=== PATIENT | female | born 1935 | race Caucasian/White ===

== ENCOUNTER → 2021-09-26 10:39 | Outpatient (BNVA) | payer MEDICARE, SELFPAY | PROVIDERS: Family Provider Specialist; PCP Specialist; Visit Provider Nurse Practitioner | DX: I10 Essential (primary) hypertension (principal); E78.5 Hyperlipidemia, unspecified; E55.9 Vitamin D deficiency, unspecified; E78.2 Mixed hyperlipidemia; F32.A Depression, unspecified; R09.02 Hypoxemia; Z79.01 Long term (current) use of anticoagulants | CPT/HCPCS: 80053; 80061; 82306; 84443; 85025 ==

== ENCOUNTER 2023-03-08 21:39 | Observation (INO) | payer MEDICARE, SELFPAY ==
[2023-03-08 21:45] VITALS: BMI 24.7
[2023-03-08 22:17] VITALS: BP 144/77; PULSE 71; RESP 16; TEMP 36.8; O2SAT 93
--- NOTE | 2023-03-08 22:33 | XRR_ITS ---
PROCEDURE INFORMATION: Exam: XR Chest Exam date and time: 03/08/2023 11:02 PM Age: 87 years old Clinical indication: Other: Elevated crp; Additional info: Eleavted crp TECHNIQUE: Imaging protocol: Radiologic exam of the chest. Views: 1 view. COMPARISON: CR XR chest 1V [id number] 05/22/2019 11:13 AM FINDINGS: Lungs: Emphysematous changes. Bilateral hilar atelectasis versus minimal infiltrate. Pleural spaces: Unremarkable. No pleural effusion. No pneumothorax. Heart/Mediastinum: Large hiatal hernia. Bones/joints: Unremarkable. XR/XR chest 1V portable [id number] IMPRESSION: 1. Large hiatal hernia. 2. Emphysematous changes. 3. Bilateral hilar atelectasis versus minimal infiltrate.
--- NOTE | 2023-03-08 22:42 | P.HP_ITS ---
Providers/Chief Complaint Admitting Physician: Fabian Black DO Primary Care Provider: Rosario Jane MD Chief Complaint: Syncope History of Present Illness Maria Alejandra Zayas is a 87 year old female with a past medical history of lacunar), history of DVT on Xarelto, history of atrial septal aneurysm, who was brought to [facility] due to concerns for syncope and altered mental status, she has a history of dementia, hyperlipidemia, currently patient is alert to person, to place, not to time she can follow commands she does not know exactly what happened, she denies any facial droop, slurring words, focal weakness, no abdominal pain, fevers, chills, no cough, no neck pain, neck stiffness, no lightheadedness, no dizziness, no chest pain, no palpitations. A ccording to outside records, she was transferred to [facility] as she had 3-4 unresponsive episodes, first episode at home per her , last known well normal was at about 730, patient was eating at the table, she stopped talking, later had on the table, patient was not responding for about 20 minutes, then spontaneous stand up and started talking again, EMS on route reported she stopped speaking midsentence 3 different times, states that he is a bit more confused, states her last evaluation has been feeling tired, wanting to sleep, ER physician spoke to their virtual neurology team, who recommended transfer to stroke center for stroke evaluation Review of Systems Const: Denies: fever(s) or chills Eyes: Denies: change in vision ENMT: Denies: throat pain Card: Denies: chest pain Resp: Denies: dyspnea GI: Denies: abdominal pain, nausea or vomiting : Denies: flank pain or difficulty voiding Musc: Denies: neck pain or back pain Skin/Breast: Denies: rash Neuro: Denies: headache(s) Psych: Denies: anxiety or depression Endo: Denies: polyuria or polydipsia Medications/Allergies Home Medications Medication Instructions Recorded Confirmed Last Taken Type donepezil 10 mg tablet 10 mg PO DAILY 07/17/19 09/26/21 Unknown History folic acid 1 mg tablet ea PO 07/17/19 09/26/21 Unknown History citalopram 20 mg tablet See Rx Instructions .Route 09/26/21 09/26/21 Unknown Rx .COMPLEX #30 tabs lisinopril 5 mg tablet See Rx Instructions .Route 12/02/22 Unknown Rx .COMPLEX #30 tabs rivaroxaban 20 mg tablet (Xarelto) See Rx Instructions .Route 12/30/22 Unknown Rx .COMPLEX #30 tabs rosuvastatin 20 mg tablet See Rx Instructions .Route 12/30/22 Unknown Rx .COMPLEX #30 tabs Allergies Allergy/AdvReac Type Severity Reaction Status Date / Time Penicillins Allergy Mild rash Verified 09/26/21 09:58 PFSH Acute PFSH: Medical History Anticoagulated by anticoagulation treatment Dementia Essential hypertension History of CVA (cerebrovascular accident) History of DVT (deep vein thrombosis) History of pulmonary embolism History of TIA (transient ischemic attack) Hyperlipemia Hypoxia Vitamin D deficiency Surgical History History of appendectomy Family History (Updated 03/08/23 @ 22:44 by Qamar Gutierrez MD) Mother DVT (deep venous thrombosis) Polymyositis Social History Smoking and tobacco status: never smoked Second hand smoke exposure: No Smoking risk assessment/counseling performed?: No Alcohol intake: never Desire information about alcohol rehabilitation?: No Counseling given: No Substance/Drug Use: never Desire information about substance/drug rehabilitation?: No Counseling given: No Vitals/I&O/Wt Last Vital Signs Temp 98.3 F 03/08/23 22:17 Pulse 71 03/08/23 22:17 Resp 16 03/08/23 22:17 BP 144/77 03/08/23 22:17 Pulse Ox 93 03/08/23 22:17 03/08/23 03/08/23 03/08/23 06:59 14:59 22:59 Intake Total 120 / 120 Balance 120 / 120 Physical Exam Const: COMMON NORMALS: no acute distress and patient oriented x3 GENERAL APPEARANCE: cooperative and well developed HENMT: COMMON NORMALS: normocephalic and Normal external nose present HEAD & SCALP: normocephalic FACE & SINUS: normal facial exam NOSE: Normal external nose present Eye: COMMON NORMALS: Equal, round and reactive pupils present, EOMs intact bilaterally, conjunctivae normal and no scleral icterus CONJUNCTIVA: Yes conjunctivae normal PUPIL: Yes Equal, round and reactive pupils present Neck/C-Spine: COMMON NORMALS: full ROM, no lymphadenopathy, no JVD and Thyroid normal Lymph: LYMPHATIC: no lymphadenopathy noted Chest: COMMONS NORMALS: normal inspection of the chest Resp: COMMON NORMALS: normal respiratory effort, No retractions, No use of accessory muscles and clear to auscultation bilaterally AUSCULTATION: clear to auscultation bilaterally Cardio: COMMON NORMALS: regular rate, regular rhythm, S1 normal heart sound present, S2 normal heart sound present, No murmurs present (Cardio) and Peripheral pulses 2+ throughout RATE: regular rate RHYTHM: regular rhythm HEART SOUNDS: S1 normal heart sound present and S2 normal heart sound present PERIPHERAL PULSES: Peripheral pulses 2+ throughout GI: COMMON NORMALS: Normal to inspection, nondistended, normoactive bowel sounds present, Soft to palpation and non-tender : BLADDER/KIDNEY EXAM: Yes no CVA tenderness Back/Pelvis: COMMON NORMALS: no CVA tenderness Extremity: COMMON NORMALS: normal to inspection, full ROM, no calf tenderness and no pedal edema Neuro: COMMON NORMALS: patient oriented x3, CN's II-XII intact bilaterally, moves all extremities, no focal motor deficits and no sensory deficits noted Psych: COMMON NORMALS: mental status grossly normal, Normal thought process present, cooperative and speech normal APPEARANCE: Yes well kempt SPEECH: Yes normal speech THOUGHT PROCESS: Normal thought process present Skin: COMMON NORMALS: turgor normal and no jaundice GENERAL SKIN EXAM: turgor normal A&P Assessment and plan (1) CVA (cerebral vascular accident): (2) History of DVT (deep vein thrombosis): (3) Anticoagulated by anticoagulation treatment: (4) Hypoxia: (5) Essential hypertension: (6) Atrial septal aneurysm: Plan acute cva -History of atrial septal aneurysm, which increases her risk of embolic strokes ? History of lacunar infarcts ? Is on anticoagulation, Xarelto ? CT head from [facility] shows chronic small vessel ischemic changes, there is a small remote right cerebellar lacunar infarct ? 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 Currently for NIH stroke scale is 0, I cannot discern any facial asymmetry, no facial droop, no slurring of her words, she is alert to person, to place, to time, can follow commands, cranial nerves II to XII grossly intact, no focal weakness, no paresthesias Plan -Continue neurochecks, aspiration precautions, night stroke scale ? Speech therapy eval -Bedside swallow eval ? PT OT ? Continue aspirin, statin ? Telemetry monitoring, ? Cardiac echo ? MRI ? Allow for permissive hypertension to systolic greater than 220 or diastolic 1120 -We will continue Xarelto -Full code -Xarelto for DVT prophylaxis Unresponsive episodes -Lasting 15 to 20 minutes, 3 episodes -Etiology unclear -Serial troponins, serial EKGs, telemetry monitoring -Cardiac echo -Patient CRP was 130? We will repeat in a.m., repeat CBC, UA, chest x-ray -Arrhythmia versus syncope associated with atrial septal aneurysm hx of dvt hx of atrial septal aneurysm hx of htn Attestations Medical Necessity Statement*: patient requires hospitalization for cva, outpatient with observation Diagnoses CVA (cerebral vascular accident) I63.9 History of DVT (deep vein thrombosis) Z86.718 Anticoagulated by anticoagulation treatment Z79.01 Hypoxia R09.02 Essential hypertension I10 Atrial septal aneurysm I25.3
--- NOTE | 2023-03-08 23:02 | ECG_ITS ---
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 Measurements Intervals [place] Rate: 78 P: 68 NC: 130 QRS: 68 QRSD: 78 T: 82 QT: 363 QTc: 415 Interpretive Statements SINUS RHYTHM POSSIBLE LEFT ATRIAL ENLARGEMENT [-0.1mV P-WAVE IN V1/V2] NONSPECIFIC T-WAVE ABNORMALITY INTERPRETATION BASED ON A DEFAULT AGE OF 40 YEARS Compared to ECG 05/21/2019 05:32:03 Sinus arrhythmia no longer present T-wave abnormality still present Electronically Signed On 03-09-2023 21:09:04 CDT by Marguerite Oswald M.D. [email or web address]
[2023-03-08] MEDS: pantoprazole 40 mg SDV IVP (23:17)
[2023-03-08] MEDS: sodium chloride 0.9% 1,000 ML 75 ML IV (23:17)
[2023-03-08 23:23] VITALS: O2SAT 94
[2023-03-08 23:27] LABS: Estmated Average Glucose 105; Hemoglobin A1C 5.3 % (4.0-6.0)
[2023-03-08 23:41] LABS: Chol HDL Ratio 2.45 mg/dL (0.0-4.40); Cholesterol 93 mg/dL (0-200); HDL Cholesterol 38 mg/dL (60-100); LDL Cholesterol Calculated 35 mg/dL (50-129); LDL HDL Ratio 0.92 RATIO (0.00-3.22); Thyroid Stimulating Hormone 1.08 uIU/mL (0.27-4.20); Triglycerides 102 mg/dL (0-150)
[2023-03-08 23:53] LABS: Troponin(5th) Baseline 12 ng/L (0-10)
[2023-03-09] VITALS (8 sets, daily range): BP systolic 135–188; BP diastolic 60–81; PULSE 74–99; RESP 15–19; TEMP 36.5–37.2; O2SAT 91–94
[2023-03-09 01:48] LABS: Troponin 5 2HR 15.04 ng/L (0-10); Troponin 5 2HR Delta 3.04 ABS# (0-10)
[2023-03-09 05:48] LABS: Basophils % 0.3 %; Hematocrit 37.1 % (36-47); Lymphocytes # 0.3 10^3/uL (0.8-4.8); Mean Corpuscular Hemoglobin 29.3 pg (27-33); Mean Corpuscular Volume 94.6 fl (85-98); Mean Platelet Volume 11.2 fL (7.4-10.4); Monocytes # 0.3 10^3/uL (0.2-0.9); Monocytes % 8.4 %; Neutrophils % 83.7 %; Nucleated Red Blood Cells % 0 %; Platelet Count 145 10^3/cmm (157-399); Red Blood Count 3.92 10^6/uL (3.85-5.65); Red Cell Distribution Width 13.5 % (12.1-15.1); White Blood Count 3.58 10^3/uL (3.29-11.43)
[2023-03-09 06:07] LABS: Troponin 5 6HR 19.87 ng/L (0-10)
[2023-03-09 06:08] LABS: Troponin 5 6HR Delta 7.87 ng/L (0-12)
[2023-03-09 06:09] LABS: Alanine Aminotransferase 29 U/L (0-33); Albumin Level 3.1 g/dL (3.5-5.2); Alkaline Phosphatase 62 U/L (35-105); Anion Gap 15.4 (5-19); Aspartate Amino Transferase 36 U/L (0-32); Blood Urea Nitrogen 11 mg/dL (8-23); C Reactive Protein 132.4 mg/L (0.0-4.9); Calcium 8.6 mg/dL (8.5-10.5); Carbon Dioxide 22 mmol/L (22-29); Chloride 99 mmol/L (98-107); Globulin 2.8 g/dL (1.3-4.6); Glucose 104 mg/dL (65-115); Magnesium 1.9 mg/dL (1.7-2.3); Osmolality Calculated 276 mOsm/kg (285-295); Phosphorus 2.3 mg/dL (2.5-4.5); Potassium 3.4 mmol/L (3.5-5.1); Sodium 133 mmol/L (136-145); Total Bilirubin 0.7 mg/dL (0.15-1.2); Total Protein 5.9 g/dL (6.6-8.7)
[2023-03-09 06:15] LABS: Procalcitonin 0.31 ng/mL (0-0.5)
[2023-03-09] MEDS: donepezil 5 MG Tablet 10 MG PO (08:48)
[2023-03-09] MEDS: aspirin 81 mg EC Tablet PO (08:49)
[2023-03-09] MEDS: rivaroxaban 10 mg Tablet 20 MG PO (08:49)
[2023-03-09] MEDS: atorvastatin 40 mg Tablet 80 MG PO (08:49)
[2023-03-09] MEDS: citalopram 20 mg Tablet PO (08:50)
--- NOTE | 2023-03-09 09:53 | PC.CHAP ---
Pastoral Care Encounter/Spiritual Assessment Type of Contact [] Declined director of medical education visit [] Patient/Family/Request visit [] Outpatient visit [] Follow-up visit [] Physician referral [] Code/Alert [] Routine visit [] Staff referral [] Actively dying [] Patient sleeping [] Family support [] [] Out of room [] Palliative care [] [x] Receiving care in room [] Pre-surgical visit [] Trauma [] Long length of stay [] ICU visit [] Other: Relational/Emotional Strength [] Patient feels connected with others/family/visitors/staff [] Distress [] Loneliness/isolation [] Abandonment Spirituality of Patient [] Person of Jennifer [] Attends Yazidism of their Jennifer [] Believes in Prayer [] Reads Bible or Orthodox materials [] There are Spiritual issues to be addressed Tool Filer Hand Interventions [] Prayer [] Active listening [] Non-anxious presence [] Spiritual/emotional support [] Crisis/trauma care [] Spiritual counseling [] Bereavement support [] Provided bereavement packet [] Provided Bible/devotional materials [] Provided toy/stuffed animal, coloring book to patient or family member [] Provided Communion [] Anointing/[place] [] Salvation [] Completed spiritual assessment [] Other: Impact on Illness or Injury [] Angry [] Fearful [] Anxious [] Often cries [] Exhaustion [] Unable to work [] Unable to attend episcopal [] Unable to walk/stand [] Unable to read [] Unable to drive [] Unable to eat/drink [] Unable to sleep [] Unable to be with family [] Patient intubated [] Other: Summary Time spent with patient
--- NOTE | 2023-03-09 15:26 | P.PN_ITS ---
Subjective Subjective: Patient admitted for episodes of unresponsiveness. No true syncope when asked the patient and per ER report. Today patient states that she feels normal no complaints. Review of systems is negative. Vitals/I&O/Wt Last Vital Signs Temp 98.2 F 03/09/23 12:00 Pulse 82 03/09/23 13:30 Resp 16 03/09/23 12:00 BP 188/81 03/09/23 12:00 Pulse Ox 92 03/09/23 12:00 O2 Del Method Room Air 03/09/23 12:00 03/09/23 03/09/23 03/09/23 06:59 14:59 22:59 Intake Total 120 / 240 1480 / 1480 Balance 120 / 240 1480 / 1480 Weight last 48 hrs Weight 57.606 kg Physical Exam Narrative: Elderly female with good strength seen lying in bed. Neurologic: Patient has a right facial droop versus asymmetry. The droop resolves with smiling. NIHSS 0 cranial nerves II through XII are grossly intact Heart: Regular normal S1-S2 without murmurs clicks gallops or rubs Lungs: Clear to auscultation without wheezes rales or rhonchi Abdomen: Soft nontender nondistended positive bowel sounds Extremities no clubbing cyanosis or edema Data 03/09/23 05:30 03/09/23 05:30 A&P Assessment and plan (1) Recurrent episodes of unresponsiveness: Due to patient's history and suggestion of neurologist at [facility] patient was admitted to rule out stroke. Patient underwent MRI of head that shows no acute ischemia. The description of patient's episodic unresponsiveness yesterday is consistent with possible absence seizures. These can occur and multi-infarct dementia or Alzheimer's dementia. She does have temporal lobe and parietal cerebral atrophy. I discussed with patient if she would like to try an antiepileptic called Keppra which has minimal side effects the most common being weight gain. Patient said I do not know . also left the decision to me and I have elected to do a trial of Keppra 500 mg twice daily while she is in the hospital to see how she reacts. (2) History of CVA (cerebrovascular accident) without residual deficits: Patient has previous small scattered strokes in the bilateral cerebellum and the left basal ganglia She was on Crestor 20 mg daily this has been replaced with Lipitor 80 mg per formulary. (3) Abnormal MRI of head: Significant for cerebral atrophy in the temporal and parietal lobes. Also has small old ischemic strokes as described above (4) Vitamin D deficiency: Patient carries this diagnosis but does not report she takes vitamin D. Will defer to patient's nurse practitioner. (5) Hyperlipemia: Patient is reportedly on Crestor 20 mg daily Qualifiers: Hyperlipidemia type: mixed hyperlipidemia Qualified Code(s): E78.2 - Mixed hyperlipidemia (6) History of DVT (deep vein thrombosis): Patient has a longstanding history of DVT and is on rivaroxavan. I do not see an indication to continue. Therefore I will discontinue at this time (7) Essential hypertension: Patient takes lisinopril 5 mg at home. Her blood pressure has been stable until this afternoon. Will ensure resumption of this medication Plan Due to the patient's history of dementia and old prescription for Aricept will obtain a speech-language pathology evaluation for cognitive exam. Aricept has been resumed. Attestations Medical Necessity Statement*: Patient requires continued hospitalization for possible seizure activity and the initiation of a antiepileptic. Also requires a speech-language pathology to determine if outpatient assistance is required. Coding Level of Care Code Acute Code for Chg Fwd Diagnoses Recurrent episodes of unresponsiveness R40.4 History of CVA (cerebrovascular accident) without residual deficits Z86.73 Abnormal MRI of head R93.0 Vitamin D deficiency E55.9 Hyperlipemia E78.2 Hyperlipidemia type: mixed hyperlipidemia History of DVT (deep vein thrombosis) Z86.718 Essential hypertension I10
[2023-03-09] MEDS: levETIRAcetam 1,000 mg/10 mL UDC 500 MG PO (17:31)
--- NOTE | 2023-03-09 22:41 | USCV_ITS ---
Maria Alejandra Zayas Age: 87 Gender: F : 1935 Exam Date: 03/09/2023 02:16 Ordering Phys: Qamar Gutierrez MD Technologist: RADHA Exam Location: [facility] Indication: altered mental status. BP: 144 / 77 HR: 79 Rhythm: Sinus Technical Quality: Adequate MEASUREMENTS (Male / Female) Normal Values 2D ECHO LV Diastolic Diameter PLAX 2.4 cm 4.2 - 5.9 / 3.9 - 5.3 cm LV Systolic Diameter PLAX 1.7 cm IVS Diastolic Thickness 1.5 cm 0.6 - 1.0 / 0.6 - 0.9 cm IVS Systolic Thickness 1.5 cm LVPW Diastolic Thickness 1.2 cm 0.6 - 1.0 / 0.6 - 0.9 cm LVPW Systolic Thickness 1.2 cm LVOT Diameter 1.3 cm LV Ejection Fraction 2D Teich 58.3 % LV Ejection Fraction MOD 2C 78.9 % LV Ejection Fraction 2C AL 82.9 % LA Diameter 2.9 cm LA Width 3.5 cm LA Height 4.7 cm RA Width 3.1 cm RA Height 4.1 cm Aorta at Sinotubular Diameter 2.3 cm IVC Diameter 2.3 cm M-MODE Aortic Annulus Diameter 2.4 cm LA Ao Ratio MM 1.3 MV E Point Septal Separation 0.3 cm DOPPLER AV Peak Velocity 167.0 cm/s LVOT Peak Velocity 116.0 cm/s AV Area Cont Eq vti 1.0 cm squared AV Area Cont Eq pk 0.9 cm squared MV Peak Velocity 136.0 cm/s MV Area PHT 3.7 cm squared Mitral E to A Ratio 0.8 MV E' Velocity 46.0 cm/s Mitral E to MV E' Ratio 10.6 Mitral E to LV E' Lateral Ratio 8.9 Mitral E to LV E' Septal Ratio 13.4 TR Peak Velocity 305.7 cm/s TR Peak Gradient 37.4 mmHg TV Peak E Velocity 57.0 cm/s Right Atrial Pressure 5.0 mmHg Pulmonary Artery Systolic Pressu 42.4 mmHg PV Peak Velocity 127.0 cm/s RV Acceleration Time 0.1 s RV Ejection Time 0.3 s RV AcT/ET 0.4 FINDINGS Left Ventricle Normal left ventricular size and systolic function, EF 69 %. Mild to moderate concentric left ventricular hypertrophy.No regional wall motion abnormalities. Grade I/IV diastolic dysfunction (abnormal relaxation filling pattern), normal to mildly elevated filling pressures. Right Ventricle The right ventricle is normal in size and function. Right Atrium Mildly increased right atrial size. Left Atrium Mildly increased left atrial size. Mitral Valve Thickened mitral valve. Mild mitral valve regurgitation. Aortic Valve Thickened aortic valve. Tricuspid Valve Trace to mild tricuspid valve regurgitation. Estimated pulmonary artery peak systolic pressure 46 mmHg Pulmonic Valve Pulmonic valve not well visualized. Pericardium No pericardial effusion. Aorta Normal aortic annulus size. IVC Normal inferior vena cava. CONCLUSIONS Normal left ventricular size and systolic function, EF 69 %. Mild to moderate concentric left ventricular hypertrophy.No regional wall motion abnormalities. Grade I/IV diastolic dysfunction (abnormal relaxation filling pattern), normal to mildly elevated filling pressures. Mild biatrial enlargement Thickened mitral valve. Mild mitral valve regurgitation. Thickened aortic valve. Trace to mild tricuspid valve regurgitation. Estimated pulmonary artery peak systolic pressure 46 mmHg. There is no pericardial effusion. There are no intracardiac masses. Compared to the study from 05/21/2019, there may not be a significant change Dr Marguerite Oswald MD [facility] (Electronically Signed) Final Date: 09 March 2023 12:26 S
--- NOTE | 2023-03-09 23:02 | MR_ITS ---
WS: [id number] MRI HEAD WITHOUT CONTRAST TECHNIQUE: Sagittal T1, T2 axial, T2 axial FLAIR, axial and coronal T1 images, axial susceptibility w eighted imaging, axial diffusion weighted images, and coronal T2 images were obtained. CLINICAL INFORMATION: cva COMPARISON: MRI 2012 FINDINGS: No evidence of restricted diffusion to suggest acute ischemia. Ventricular system and basilar cistern s are patent. Multiple tiny chronic lacunar infarcts in the cerebellum bilaterally RIGHT greater than LEFT. Normal vascular flow voids at the skull base. No extra-axial fluid collections. No evidence of mass or mass effect. Chronic lacunar infarct LEFT caudate. Paranasal sinuses are well aerated. Marcy l posterior nasopharynx and parapharyngeal fat. Advanced small vessel changes progressed since 2012. Small vessel changes in the ellyn. Moderate paren chymal volume loss worse in the temporal and parietal lobes. Moderate symmetric atrophy temporal lobe s and hippocampal formations. Normal optic chiasm and pituitary infundibulum. Tiny punctate focus of hemosiderin in the LEFT greater than RIGHT cerebellum. Single punctate focus i n the RIGHT frontal parietal junction. IMPRESSION: 1. No evidence of restricted diffusion to suggest acute ischemia. 2. Advanced small vessel changes with moderate parenchymal volume loss worse in the temporal and par ietal lobes. 3. Small vessel changes in the ellyn. 4. Multiple chronic lacunar infarcts in the cerebellum bilaterally and LEFT caudate. 5. A few tiny punctate foci of hemosiderin within the cerebellum and RIGHT frontal parietal junction .
[2023-03-10] VITALS (7 sets, daily range): BP systolic 140–183; BP diastolic 75–90; PULSE 82–94; RESP 16–19; TEMP 36.4–37.3; O2SAT 91–94
[2023-03-10] MEDS: aspirin 81 mg EC Tablet PO (09:25)
[2023-03-10] MEDS: citalopram 20 mg Tablet PO (09:25)
[2023-03-10] MEDS: levETIRAcetam 1,000 mg/10 mL UDC 500 MG PO (09:26)
--- NOTE | 2023-03-10 11:09 | PC.CHAP ---
Pastoral Care Encounter/Spiritual Assessment Type of Contact [] Declined land commissioner visit [] Patient/Family/Request visit [] Outpatient visit [] Follow-up visit [] Physician referral [] Code/Alert [x] Routine visit [] Staff referral [] Actively dying [] Patient sleeping [] Family support [] [] Out of room [] Palliative care [] [] Receiving care in room [] Pre-surgical visit [] Trauma [] Long length of stay [] ICU visit [] Other: Relational/Emotional Strength [] Patient feels connected with others/family/visitors/staff [] Distress [] Loneliness/isolation [] Abandonment Spirituality of Patient [] Person of Jennifer [] Attends Episcopal of their Jennifer [] Believes in Prayer [] Reads Bible or Mandaeism materials [] There are Spiritual issues to be addressed Impress Associate Interventions [x] Prayer [] Active listening [] Non-anxious presence [] Spiritual/emotional support [] Crisis/trauma care [] Spiritual counseling [] Bereavement support [] Provided bereavement packet [] Provided Bible/devotional materials [] Provided toy/stuffed animal, coloring book to patient or family member [] Provided Communion [] Anointing/[place] [] Salvation [] Completed spiritual assessment [] Other: Impact on Illness or Injury [] Angry [x] Fearful [] Anxious [] Often cries [] Exhaustion [] Unable to work [] Unable to attend mandaen [] Unable to walk/stand [] Unable to read [] Unable to drive [] Unable to eat/drink [] Unable to sleep [] Unable to be with family [] Patient intubated [] Other: Summary Time spent with patient 10 min
--- NOTE | 2023-03-10 11:14 | PM.DCS ---
Discharge Providers Date of Admission: 03/08/23 21:39 Date of Discharge: March 10, 2023 Attending Provider at Admission: Fabian Black DO Attending Provider at Discharge: Fabian Black DO Consults: None Primary Care Provider: Nazanin Etienne NP Diagnoses at Discharge Discharge Diagnosis (1) Recurrent episodes of unresponsiveness: Details from hospital stay: [place] to be possible seizure. Placed on Keppra 500 mg p.o. twice daily Status: Acute (2) History of CVA (cerebrovascular accident) without residual deficits: Status: Acute (3) Abnormal MRI of head: Status: Acute (4) Vitamin D deficiency: Status: Acute (5) Hyperlipemia: Status: Acute Qualifiers: Hyperlipidemia type: mixed hyperlipidemia Qualified Code(s): E78.2 - Mixed hyperlipidemia (6) History of DVT (deep vein thrombosis): Status: Resolved (7) Essential hypertension: Status: Chronic Reason for Visit Reason for Visit: Syncope Brief History: Patient admitted for episodes of unresponsiveness.? No true syncope when asked the patient and per ER report. Hospital Course Hospital Course Patient was transferred from [facility] with concern for CVA. MRI of the head shows no acute ischemia. However the MRI of the head did reveal moderate cerebral atrophy in the temporal and parietal lobes. She also has multiple small old ischemic strokes. Patient's NIHSS was 0. Discussion with patient and via phone it was read upon for a trial of Keppra 500 mg twice daily while in the hospital. She has not had no side thus far. She is agreeable to continue this medication since the cerebral atrophy may be a nidus for absence seizures. She has been informed that a major side effect is weight gain. He is advised to discuss with primary care if this becomes a problem. So it is recommended the patient resume Aricept. Patient will also be placed on a statin due to history of strokes. Physical Exam Narrative: Elderly female with good strength seen lying in bed. Neurologic: Patient has a right facial droop versus asymmetry. The droop resolves with smiling. NIHSS 0 cranial nerves II through XII are grossly intact Heart: Regular normal S1-S2 without murmurs clicks gallops or rubs Lungs: Clear to auscultation without wheezes rales or rhonchi Abdomen: Soft nontender nondistended positive bowel sounds Extremities no clubbing cyanosis or edema Discharge Data Studies Completed and Pending Completed Studies During Hospitalization Category Date Time Status XR chest 1V portable [id number] Stat Exams 03/08/23 22:33 Completed MR head wo con* [id number] Routine MRI 03/09/23 23:02 Completed CV. echo complete* [id number] Routine Ultrasound 03/09/23 22:41 Completed Pending at discharge Category Date Time Status Urinalysis Routine Lab 03/08/23 22:41 Uncollected Radiology Impressions Chest X-Ray 03/08/23 22:33 IMPRESSION: 1. Large hiatal hernia. 2. Emphysematous changes. 3. Bilateral hilar atelectasis versus minimal infiltrate. Laboratory Results WBC 3.58 10^3/uL (3.29-11.43) 03/09/23 05:30 RBC 3.92 10^6/uL (3.85-5.65) 03/09/23 05:30 Hgb 11.50 g/dL (11.27-16.99) 03/09/23 05:30 Hct 37.1 % (36-47) 03/09/23 05:30 MCV 94.6 fl (85-98) 03/09/23 05:30 MCH 29.3 pg (27-33) 03/09/23 05:30 MCHC 31.0 g/dL (30-55) 03/09/23 05:30 RDW 13.5 % (12.1-15.1) 03/09/23 05:30 Plt Count 145 10^3/cmm (157-399) L 03/09/23 05:30 MPV 11.2 fL (7.4-10.4) H 03/09/23 05:30 Neut % (Auto) 83.7 % 03/09/23 05:30 Lymph % (Auto) 7.0 % 03/09/23 05:30 [place] % (Auto) 8.4 % 03/09/23 05:30 Eos % (Auto) 0.0 % 03/09/23 05:30 Baso % (Auto) 0.3 % 03/09/23 05:30 Neut # (Auto) 3.00 10^3/uL (1.8-7.7) 03/09/23 05:30 Lymph # (Auto) 0.3 10^3/uL (0.8-4.8) L 03/09/23 05:30 [place] # (Auto) 0.3 10^3/uL (0.2-0.9) 03/09/23 05:30 Eos # (Auto) 0.0 10^3/uL (0.0-0.8) 03/09/23 05:30 Baso # (Auto) 0.0 10^3/uL (0.0-0.1) 03/09/23 05:30 Nucleated RBC % (auto) 0 % 03/09/23 05:30 Nucleated RBCs # 0.0 /100WBC 03/09/23 05:30 Sodium 133 mmol/L (136-145) L 03/09/23 05:30 Potassium 3.4 mmol/L (3.5-5.1) L 03/09/23 05:30 Chloride 99 mmol/L (98-107) 03/09/23 05:30 Carbon Dioxide 22 mmol/L (22-29) 03/09/23 05:30 Anion Gap 15.4 (5-19) 03/09/23 05:30 BUN 11 mg/dL (8-23) 03/09/23 05:30 Creatinine 0.7 mg/dL (0.5-0.9) 03/09/23 05:30 GFR Calculation Not Reportable 03/09/23 05:30 Glucose 104 mg/dL (65-115) 03/09/23 05:30 Estimat Average Glucose 105 03/08/23 23:01 Hemoglobin A1c 5.3 % (4.0-6.0) 03/08/23 23:01 Calculated Osmolality 276 mOsm/kg (285-295) L 03/09/23 05:30 Calcium 8.6 mg/dL (8.5-10.5) 03/09/23 05:30 Phosphorus 2.3 mg/dL (2.5-4.5) L 03/09/23 05:30 Magnesium 1.9 mg/dL (1.7-2.3) 03/09/23 05:30 Total Bilirubin 0.7 mg/dL (0.15-1.2) 03/09/23 05:30 AST 36 U/L (0-32) H 03/09/23 05:30 ALT 29 U/L (0-33) 03/09/23 05:30 Alkaline Phosphatase 62 U/L (35-105) 03/09/23 05:30 Troponin T Baseline 12 ng/L (0-10) H 03/08/23 23:01 Troponin T 120 Minute 15.04 ng/L (0-10) H 03/09/23 01:10 Delta Troponin T 3.04 ABS# (0-10) 03/09/23 01:10 Troponin T Hi Sens 6Hr 19.87 ng/L (0-10) H 03/09/23 05:30 Troponin T Hi Sens 6Hr Delta 7.87 ng/L (0-12) 03/09/23 05:30 C-Reactive Protein 132.4 mg/L (0.0-4.9) H 03/09/23 05:30 Total Protein 5.9 g/dL (6.6-8.7) L 03/09/23 05:30 Albumin 3.1 g/dL (3.5-5.2) L 03/09/23 05:30 Globulin 2.8 g/dL (1.3-4.6) 03/09/23 05:30 Triglycerides 102 mg/dL (0-150) 03/08/23 23:01 Cholesterol 93 mg/dL (0-200) 03/08/23 23:01 LDL Cholesterol, Calc 35 mg/dL (50-129) L 03/08/23 23:01 HDL Cholesterol 38 mg/dL (60-100) L 03/08/23 23:01 LDL/HDL Ratio 0.92 RATIO (0.00-3.22) 03/08/23 23:01 Cholesterol/HDL Ratio 2.45 mg/dL (0.0-4.40) 03/08/23 23:01 Procalcitonin 0.31 ng/mL (0-0.5) 03/09/23 05:30 TSH 1.08 uIU/mL (0.27-4.20) 03/08/23 23:01 Vitals Last Vital Signs Temp 99.1 F 03/10/23 07:09 Pulse 94 03/10/23 07:09 Resp 19 H 03/10/23 07:09 BP 183/85 03/10/23 07:09 Pulse Ox 92 03/10/23 07:09 O2 Del Method Room Air 03/10/23 07:09 Discharge Plan Discharge Patient Disposition: Home Health Service Condition: Stable Prescriptions: New donepezil 5 mg Tablet 10 mg PO BEDTIME Qty: 30 0RF aspirin 81 mg Tablet,Delayed Release (Dr/Ec) 81 mg PO DAILY Qty: 30 0RF citalopram 20 mg Tablet 20 mg PO DAILY Qty: 30 0RF levetiracetam 100 mg/mL Solution 500 mg PO BID Qty: 60 0RF Continued lisinopril 5 mg tablet See Rx Instructions .ROUTE .COMPLEX Qty: 30 5RF Dose Instruction: TAKE ONE TABLET BY MOUTH DAILY Rx Instructions: TAKE ONE TABLET BY MOUTH DAILY rosuvastatin 20 mg tablet See Rx Instructions .ROUTE .COMPLEX Qty: 30 3RF Dose Instruction: TAKE 1 TABLET BY MOUTH EVERY DAY Rx Instructions: TAKE 1 TABLET BY MOUTH EVERY DAY Discontinued Xarelto 20 mg tablet See Rx Instructions .ROUTE .COMPLEX Qty: 30 3RF Dose Instruction: TAKE ONE TABLET BY MOUTH EVERY DAY, MUST MAKE APPOINTMENT BEFORE ADDITIONAL REFILLS ARE GIVEN Rx Instructions: TAKE ONE TABLET BY MOUTH EVERY DAY. Discharge Orders: Discharge Order (Routine); Ordered 03/10/23 Ordered By: Fabian Black Referrals: [facility] [Other] Nazanin Etienne FNP [Nurse Practitioner] - 03/18/23 10:00 am Discharge Diet: Usual diet Discharge Activity: Increase activity as tolerated Plan of Treatment: You have been started on an antiseizure medication for the possibility that your unresponsive episodes were due to a type of seizure. You have been started on Keppra 500 mg twice a day. Pharmacy will provide you an extensive list of side effects, however, most noted common side effect is a weight gain. If this becomes troublesome please contact your primary care provider Discharge Attestations Time Spent in Discharge Care*: less than 30 min Quality Metrics Clinical Quality Measures [ No reported AMI, CVA or VTE this stay] Coding Level of Care Code Acute Code for Chg Fwd Diagnoses Recurrent episodes of unresponsiveness R40.4 History of CVA (cerebrovascular accident) without residual deficits Z86.73 Abnormal MRI of head R93.0 Vitamin D deficiency E55.9 Hyperlipemia E78.2 Hyperlipidemia type: mixed hyperlipidemia History of DVT (deep vein thrombosis) Z86.718 Essential hypertension I10
== END 2023-03-10 12:25 | disposition home health service (06) ==
PROVIDERS: Family Medicine; Admitting Provider Internal Medicine; PCP Specialist; Visit Provider Internal Medicine
DX: R40.4 Transient alteration of awareness (principal); Z86.73 Personal history of transient ischemic attack (TIA), and cerebral infarction without residual deficits; R93.0 Abnormal findings on diagnostic imaging of skull and head, not elsewhere classified; E55.9 Vitamin D deficiency, unspecified; E78.2 Mixed hyperlipidemia; Z86.718 Personal history of other venous thrombosis and embolism; I10 Essential (primary) hypertension; K44.9 Diaphragmatic hernia without obstruction or gangrene; I34.0 Nonrheumatic mitral (valve) insufficiency; I35.8 Other nonrheumatic aortic valve disorders; Z79.01 Long term (current) use of anticoagulants; R09.02 Hypoxemia; I25.3 Aneurysm of heart
CPT/HCPCS: 36415; 70551; 71045; 80053; 80061; 83036; 83735; 84100; 84145; 84443; 84484; 85025; 86140; 92523; 92610; 93005; 93306; 94664; 97161; 97165; C9113; G0378; G0379; J7030

== ENCOUNTER 2023-03-11 18:17 | Emergency (ER) | payer MEDICARE, SELFPAY ==
[2023-03-11] VITALS (8 sets, daily range): BP systolic 125–152; BP diastolic 70–88; PULSE 82–94; RESP 20; TEMP 36.8; O2SAT 87–99
--- NOTE | 2023-03-11 18:42 | XRR_ITS ---
PROCEDURE INFORMATION: Exam: XR Chest Exam date and time: 03/11/2023 6:55 PM Age: 87 years old Clinical indication: Other: Lethargic TECHNIQUE: Imaging protocol: Radiologic exam of the chest. Views: 1 view. COMPARISON: CR (CHEST, ) 03/08/2023 11:02 PM FINDINGS: Lungs: No focal consolidation. Pleural spaces: Unremarkable. No pleural effusion. No pneumothorax. Heart/Mediastinum: Large hiatal hernia redemonstrated. Bones/joints: Old healed fracture deformity of the proximal left humerus. XR/XR chest 1V portable [id number] IMPRESSION: 1. No focal consolidation. 2. Large hiatal hernia redemonstrated.
--- NOTE | 2023-03-11 18:42 | CTR_ITS ---
PROCEDURE INFORMATION: Exam: CT Head Without Contrast Exam date and time: 03/11/2023 7:04 PM Age: 87 years old Clinical indication: Other: AMS; Additional info: Altered mental status TECHNIQUE: Imaging protocol: Computed tomography of the head without contrast. Radiation optimization: All CT scans at this facility use at least one of these dose optimization techniques: automated exposure control; mA and/or kV adjustment per patient size (includes targeted exams where dose is matched to clinical indication); or iterative reconstruction. REPORTING DATA: Count of CT and Cardiac NM exams in prior 12 months: This patient has received 2 known CTs and 0 known cardiac nuclear medicine studies in the 12 months prior to the current study. COMPARISON: MR head wo con* [id number] 03/09/2023 10:44 AM RADIATION DOSE METRICS: Total DLP (mGy-cm): 1090 FINDINGS: Brain: Subcortical and periventricular white matter changes consistent with small-vessel ischemic disease in the appropriate clinical setting. Small-vessel ischemic disease. No acute intracranial abnormality. Cerebral ventricles: No ventriculomegaly. Paranasal sinuses: Mild mucosal thickening in the right maxillary sinus. Mastoid air cells: Visualized mastoid air cells are well aerated. Bones/joints: Unremarkable. No acute fracture. Soft tissues: Unremarkable. CT/CT head wo con* [id number] IMPRESSION: 1. No acute intracranial abnormality. 2. Small-vessel ischemic disease.
[2023-03-11 19:00] LABS: Basophils # 0.1 10^3/uL (0.0-0.1); Basophils % 0.7 %; Lymphocytes # 0.3 10^3/uL (0.8-4.8); Lymphocytes % 3.8 %; Mean Corpuscular HGB Conc 33.9 g/dL (30-55); Mean Corpuscular Hemoglobin 29.3 pg (27-33); Mean Corpuscular Volume 86.4 fl (85-98); Mean Platelet Volume 10.9 fL (7.4-10.4); Monocytes # 0.3 10^3/uL (0.2-0.9); Monocytes % 3.7 %; Neutrophils # 6.39 10^3/uL (1.8-7.7); Neutrophils % 90.1 %; Nucleated Red Blood Cells % 0 %; Platelet Count 225 10^3/cmm (157-399); Red Cell Distribution Width 13.5 % (12.1-15.1); White Blood Count 7.09 10^3/uL (3.29-11.43)
--- NOTE | 2023-03-11 19:00 | PC.NURSE ---
ASSUMED CARE OF PATIENT FROM GALLO ALANIS AT 1900.
[2023-03-11 19:14] LABS: Alanine Aminotransferase 58 U/L (0-33); Albumin Level 3.2 g/dL (3.5-5.2); Alkaline Phosphatase 82 U/L (35-105); Anion Gap 14.3 (5-19); Aspartate Amino Transferase 81 U/L (0-32); Blood Urea Nitrogen 14 mg/dL (8-23); Calcium 8.9 mg/dL (8.5-10.5); Carbon Dioxide 28 mmol/L (22-29); Chloride 93 mmol/L (98-107); Creatinine Clr Calc Pharmacy 38.3804; Globulin 3.2 g/dL (1.3-4.6); Glucose 124 mg/dL (65-115); Osmolality Calculated 276 mOsm/kg (285-295); Potassium 3.3 mmol/L (3.5-5.1); Sodium 132 mmol/L (136-145); Total Bilirubin 0.8 mg/dL (0.15-1.2); Total Protein 6.4 g/dL (6.6-8.7)
[2023-03-11] MEDS: sodium chloride 0.9% 500 ML IV (19:27)
[2023-03-11 19:44] LABS: Bilirubin Urine 1+ (Negative); Blood Urine 2+ (Negative); Glucose Urine UA Norm (Normal); Ketones Urine 1+ (Negative); Nitrate Urine Negative (Negative); Protein Urine 2+ (Negative); Urine Appearance Clear (CLEAR); Urine Color Amber (Yellow); pH Urine 5 (5-7)
[2023-03-11 19:45] LABS: Add Urine Microscopic? YES; Leukocyte Esterase Urine Negative (Negative); Urobilinogen Urine 4 mg/dL (Negative)
[2023-03-11 19:50] LABS: Add Urine Culture? No; Amorphous Sediment Urine 1+ /hpf; Bacteria Urine TRACE /hpf; Fine Granular Casts Urine 0-4 /lpf; Mucus Urine 1+ /hpf; Oval Fat Bodies Urine 1+ /hpf; RBC Urine 0-4 /hpf (0-2); Squamous Epithelial Cell Urine 0-4 /hpf (0-5); WBC Urine 0-4 /hpf (0-5)
--- NOTE | 2023-03-11 20:20 | PC.NURSE ---
PATIENT CALLED AND WAS NOTIFIED OF PATIENT BEING DISCHARGED FROM THE ER. PATIENT STATES SHE IS BEING SENT HOME TONIGHT? I LIVE WAY OFF. I DON'T KNOW IF I CAN COME AND GET HER. PATIENT WAS EDUCATED THAT SOMEONE NEEDS TO PICK HER UP TONIGHT. STATES HE WOULD TRY AND FIND PATIENT A RIDE.
--- NOTE | 2023-03-11 21:03 | ED_ITS ---
HPI - General Adult General: Chief complaint: General Medical Stated complaint: weakness Time Seen by Provider: 03/11/23 18:24 History of Present Illness: This patient is an 87-year-old white female who presents to the emergency department for evaluation of an episode of weakness and possibly unresponsive episode. Patient's called paramedics to pick her up. And just laid down on the floor and would not get up. When I questioned the patient she is not sure why she is here. She states she is feeling fine. She is not having any chest pain, shortness of breath or headache. She does have history of prior CVA, hypertension, DVT, PE and hypercholesterolemia. Patient was just discharged from the hospital yesterday for evaluation of these unresponsive episodes. Neurologist thought they were possibly secondary to seizures. She was placed on Keppra. Review of Systems General: Reports: 10 or more systems reviewed and unremarkable except in HPI and below PFSH ED PFSH: Medical History Anticoagulated by anticoagulation treatment Dementia Essential hypertension History of CVA (cerebrovascular accident) History of DVT (deep vein thrombosis) History of pulmonary embolism History of TIA (transient ischemic attack) Hyperlipemia Hypoxia Vitamin D deficiency Surgical History History of appendectomy Family History (Updated 03/08/23 @ 22:44 by Qaamr Gutierrez MD) Mother DVT (deep venous thrombosis) Polymyositis Social History Smoking and tobacco status: never smoked Second hand smoke exposure: No Smoking risk assessment/counseling performed?: No Alcohol intake: never Desire information about alcohol rehabilitation?: No Counseling given: No Substance/Drug Use: never Desire information about substance/drug rehabilitation?: No Counseling given: No Physical Exam Const: COMMON NORMALS: no acute distress, patient oriented x3 and no limitations GENERAL APPEARANCE: cooperative and comfortable HENMT: COMMON NORMALS: normocephalic, atraumatic, Normal nasal mucous membranes and turbinates present, moist oral mucous membranes and oropharynx normal HEAD & SCALP: normal to inspection, normocephalic and atraumatic FACE & SINUS: normal facial exam NOSE: Normal nasal mucous membranes and turbinates present Eye: COMMON NORMALS: Equal, round and reactive pupils present, EOMs intact bilaterally and conjunctivae normal GENERAL EYE: appearance normal, both eyes and all related structures CONJUNCTIVA: Yes conjunctivae normal PUPIL: Yes Equal, round and reactive pupils present Neck/C-Spine: COMMON NORMALS: supple and no JVD Chest: COMMONS NORMALS: normal inspection of the chest Resp: COMMON NORMALS: normal respiratory effort and clear to auscultation bilaterally AUSCULTATION: clear to auscultation bilaterally Cardio: COMMON NORMALS: no JVD, regular rate, regular rhythm, No gallops present (Cardio), No murmurs present (Cardio) and No rub (Cardio) RATE: regular rate RHYTHM: regular rhythm GI: COMMON NORMALS: Normal to inspection, nondistended, normoactive bowel sounds present, Soft to palpation and non-tender AUSCULTATION: Yes normoactive bowel sounds PALPATION: Yes Soft to palpation : COMMON NORMALS: Yes no CVA tenderness BLADDER/KIDNEY EXAM: Yes no CVA tenderness Back/Pelvis: COMMON NORMALS: no CVA tenderness and thoracic and lumbar spine normal to inspection Extremity: COMMON NORMALS: normal to inspection Neuro: COMMON NORMALS: patient oriented x3 and CN's II-XII intact bilaterally Psych: COMMON NORMALS: mental status grossly normal, Normal thought process present and cooperative THOUGHT PROCESS: Normal thought process present Skin: COMMON NORMALS: no rashes or lesions noted, turgor normal and no jaundice GENERAL SKIN EXAM: no rashes or lesions noted and turgor normal Course Vital Signs: Vital signs: Vital Signs Temperature 98.2 F 03/11/23 18:20 Pulse Rate 82 03/11/23 20:30 Respiratory Rate 20 H 03/11/23 18:20 Blood Pressure 139/71 03/11/23 20:30 Pulse Oximetry 99 03/11/23 20:30 Oxygen Delivery Me thod Nasal Cannula 03/11/23 20:30 Oxygen Flow Rate 4 03/11/23 20:[address] [facility] - General Adult Medical Decision Making CBC was normal. CMP revealed a potassium of 3.3. Blood sugar 124. AST 81. ALT 58. Urinalysis was normal. Chest x-ray normal. Head CT was read by the radiologist as normal. Not sure was causing her spells. She has already been evaluated by the neurologist for this and just discharged yesterday. I have no other recommendations. Patient was discharged in stable condition instructed to follow-up with her primary care physician and/or neurology. Lab Data 03/11/23 18:50 03/11/23 18:50 Radiology Impressions Chest X-Ray 03/11/23 18:42 IMPRESSION: 1. No focal consolidation. 2. Large hiatal hernia redemonstrated. Head CT 03/11/23 18:42 IMPRESSION: 1. No acute intracranial abnormality. 2. Small-vessel ischemic disease. Laboratory Results WBC 7.09 10^3/uL (3.29-11.43) 03/11/23 18:50 RBC 4.40 10^6/uL (3.85-5.65) 03/11/23 18:50 Hgb 12.90 g/dL (11.27-16.99) 03/11/23 18:50 Hct 38.0 % (36-47) 03/11/23 18:50 MCV 86.4 fl (85-98) 03/11/23 18:50 MCH 29.3 pg (27-33) 03/11/23 18:50 MCHC 33.9 g/dL (30-55) 03/11/23 18:50 RDW 13.5 % (12.1-15.1) 03/11/23 18:50 Plt Count 225 10^3/cmm (157-399) 03/11/23 18:50 MPV 10.9 fL (7.4-10.4) H 03/11/23 18:50 Neut % (Auto) 90.1 % 03/11/23 18:50 Lymph % (Auto) 3.8 % 03/11/23 18:50 [place] % (Auto) 3.7 % 03/11/23 18:50 Eos % (Auto) 0.0 % 03/11/23 18:50 Baso % (Auto) 0.7 % 03/11/23 18:50 Neut # (Auto) 6.39 10^3/uL (1.8-7.7) 03/11/23 18:50 Lymph # (Auto) 0.3 10^3/uL (0.8-4.8) L 03/11/23 18:50 [place] # (Auto) 0.3 10^3/uL (0.2-0.9) 03/11/23 18:50 Eos # (Auto) 0.0 10^3/uL (0.0-0.8) 03/11/23 18:50 Baso # (Auto) 0.1 10^3/uL (0.0-0.1) 03/11/23 18:50 Nucleated RBC % (auto) 0 % 03/11/23 18:50 Nucleated RBCs # 0.0 /100WBC 03/11/23 18:50 Sodium 132 mmol/L (136-145) L 03/11/23 18:50 Potassium 3.3 mmol/L (3.5-5.1) L 03/11/23 18:50 Chloride 93 mmol/L (98-107) L 03/11/23 18:50 Carbon Dioxide 28 mmol/L (22-29) 03/11/23 18:50 Anion Gap 14.3 (5-19) 03/11/23 18:50 BUN 14 mg/dL (8-23) 03/11/23 18:50 Creatinine 0.8 mg/dL (0.5-0.9) 03/11/23 18:50 GFR Calculation Not Reportable 03/11/23 18:50 Glucose 124 mg/dL (65-115) H 03/11/23 18:50 Calculated Osmolality 276 mOsm/kg (285-295) L 03/11/23 18:50 Calcium 8.9 mg/dL (8.5-10.5) 03/11/23 18:50 Total Bilirubin 0.8 mg/dL (0.15-1.2) 03/11/23 18:50 AST 81 U/L (0-32) H 03/11/23 18:50 ALT 58 U/L (0-33) H 03/11/23 18:50 Alkaline Phosphatase 82 U/L (35-105) 03/11/23 18:50 Total Protein 6.4 g/dL (6.6-8.7) L 03/11/23 18:50 Albumin 3.2 g/dL (3.5-5.2) L 03/11/23 18:50 Globulin 3.2 g/dL (1.3-4.6) 03/11/23 18:50 Urine Color [place] (Yellow) 03/11/23 19:33 Urine Appearance Clear (CLEAR) 03/11/23 19:33 Urine pH 5 (5-7) 03/11/23 19:33 Ur Specific [place] 1.030 (1.005-1.030) 03/11/23 19:33 Urine Protein 2+ (Negative) H 03/11/23 19:33 Urine Glucose (UA) Norm (Normal) 03/11/23 19:33 Urine Ketones 1+ (Negative) H 03/11/23 19:33 Urine Blood 2+ (Negative) H 03/11/23 19:33 Urine Nitrate Negative (Negative) 03/11/23 19:33 Urine Bilirubin 1+ (Negative) H 03/11/23 19:33 Urine Urobilinogen 4 mg/dL (Negative) H 03/11/23 19:33 Ur Leukocyte Esterase Negative (Negative) 03/11/23 19:33 Urine RBC 0-4 /hpf (0-2) H 03/11/23 19:33 Urine WBC 0-4 /hpf (0-5) H 03/11/23 19:33 Ur Squamous Epith Cells 0-4 /hpf (0-5) H 03/11/23 19:33 Amorphous Sediment 1+ /hpf 03/11/23 19:33 Urine Bacteria Trace /hpf (NONE) 03/11/23 19:33 Fine Granular Casts 0-4 /lpf H 03/11/23 19:33 Urine Mucus 1+ /hpf 03/11/23 19:33 Ur Oval Fat Bodies 1+ /hpf 03/11/23 19:33 All radiology interpretation(s) finalized by discharge Discharge Plan Discharge Patient Disposition: Home Clinical Impression: Acute on chronic alteration in mental status Condition: Stable Prescriptions: No Action lisinopril 5 mg tablet See Rx Instructions .ROUTE .COMPLEX Qty: 30 5RF Dose Instruction: TAKE ONE TABLET BY MOUTH DAILY Rx Instructions: TAKE ONE TABLET BY MOUTH DAILY rosuvastatin 20 mg tablet See Rx Instructions .ROUTE .COMPLEX Qty: 30 3RF Dose Instruction: TAKE 1 TABLET BY MOUTH EVERY DAY Rx Instructions: TAKE 1 TABLET BY MOUTH EVERY DAY donepezil 5 mg Tablet 10 mg PO BEDTIME Qty: 30 0RF aspirin 81 mg Tablet,Delayed Release (Dr/Ec) 81 mg PO DAILY Qty: 30 0RF citalopram 20 mg Tablet 20 mg PO DAILY Qty: 30 0RF levetiracetam 100 mg/mL Solution 500 mg PO BID Qty: 60 0RF Discharge Orders: Discharge ED (Routine); Ordered 03/11/23 Ordered By: Arnaldo Mcdonald Referrals: Rosario Jane MD [Primary Care Provider] - Patient Instructions: Opioid Safety, Pain Management Coding Level of Care Code ED Clinical Research Technician for Sohan Rivera
--- NOTE | 2023-03-11 21:10 | PC.NURSE ---
ATTEMPTED TO CALL AGAIN WITH NO ANSWER.
--- NOTE | 2023-03-11 21:47 | PC.NURSE ---
ATTEMPTED TO REACH FOR THE 3RD TIME WITH NO ANSWER. ALSO ATTEMPTED TO CALL DAUGHTER LISTED IN CHART WITH NO ANSWER.
--- NOTE | 2023-03-11 21:58 | PC.NURSE ---
PAPERWORK FOR A MEDICARE RIDE HANDED TO FILTERER IN HOPES OF GETTING THE PATIENT A RIDE HOME DUE TO FAMILY NOT ANSWERING.
== END 2023-03-11 22:57 | disposition home or self-care (01) ==
PROVIDERS: Emergency Provider Emergency Medicine; PCP Specialist
DX: R41.82 Altered mental status, unspecified (principal); Z79.82 Long term (current) use of aspirin; F03.90 Unspecified dementia, unspecified severity, without behavioral disturbance, psychotic disturbance, mood disturbance, and anxiety; I10 Essential (primary) hypertension; Z86.73 Personal history of transient ischemic attack (TIA), and cerebral infarction without residual deficits; E78.5 Hyperlipidemia, unspecified
CPT/HCPCS: 36415; 51701; 70450; 71045; 80053; 81001; 85025; 96360; 96361; 99285; J7040

== ENCOUNTER 2023-03-15 20:49 | Inpatient (IN) | payer MEDICARE, SELFPAY ==
--- NOTE | 2023-03-15 20:53 | XRR_ITS ---
PROCEDURE INFORMATION: Exam: XR Chest Exam date and time: 03/15/2023 9:25 PM Age: 88 years old Clinical indication: Other: AMS TECHNIQUE: Imaging protocol: Radiologic exam of the chest. Views: 1 view. COMPARISON: CR (CHEST, ) 03/11/2023 6:55 PM FINDINGS: Lungs: Bibasilar compressive atelectasis. No consolidative pulmonary infiltrate noted. Pleural spaces: No pleural effusion. No pneumothorax. Heart/Mediastinum: Very large hiatal hernia noted, unchanged. Vasculature: The thoracic aorta is atherosclerotic. Bones/joints: Degenerative spine changes are noted. XR/XR chest 1V portable [id number] IMPRESSION: 1. Very large hiatal hernia noted, unchanged. 2. Bibasilar compressive atelectasis. No consolidative pulmonary infiltrate noted. 3. There is no interval change from the prior examination.
[2023-03-15 20:56] VITALS: BP 136/72; PULSE 97; RESP 16; TEMP 36.4; O2SAT 95; BMI 25.4
--- NOTE | 2023-03-15 20:56 | ECG_ITS ---
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 Measurements Intervals [place] Rate: 94 P: 59 ME: 111 QRS: 44 QRSD: 82 T: 34 QT: 300 QTc: 377 Interpretive Statements SINUS RHYTHM WITH SHORT ME INTERVAL POSSIBLE LEFT ATRIAL ENLARGEMENT [-0.1mV P-WAVE IN V1/V2] NONSPECIFIC T-WAVE ABNORMALITY Compared to ECG 03/08/2023 23:22:48 Short ME interval now present T-wave abnormality still present Electronically Signed On 03-15-2023 23:42:30 CDT by Rodriguez Guadalupe M.D. [id number]
--- NOTE | 2023-03-15 21:03 | W.ED.GENADLT ---
HPI - General Adult General: Chief complaint: Upper Respiratory Infection Stated complaint: AMS Time Seen by Provider: 03/15/23 20:50 Source: patient and EMS Mode of arrival: EMS Limitations: altered mental status History of Present Illness: Patient is 88-year-old female who presents the emergency room with altered mental status via EMS. EMS was called by home health physical therapy; PT stated patient was somewhat unresponsive and having some difficulty breathing with apneic episodes. EMS states patient was low 80s oxygen saturation on room air. resides at home with patient but therapy and other family states has been is unable to care for patient properly at this time. Physical therapy also states patient had foul-smelling urine and was incontinent. EMS reports fever of 100.2. Associated symptoms: Reports dyspnea; Deny chest pain, nausea, rash, palpitations or vomiting Review of Systems Const: Reports: fever(s); Denies: chills Eyes: Denies: change in vision Card: Denies: chest pain or palpitations Resp: Reports: dyspnea and non-productive cough GI: Denies: abdominal pain, nausea or vomiting : Denies: flank pain or difficulty voiding Musc: Denies: neck pain or back pain Skin/Breast: Denies: rash PFSH ED PFSH: Medical History Anticoagulated by anticoagulation treatment Dementia Essential hypertension History of CVA (cerebrovascular accident) History of DVT (deep vein thrombosis) History of pulmonary embolism History of TIA (transient ischemic attack) Hyperlipemia Hypoxia Vitamin D deficiency Surgical History History of appendectomy Family History (Updated 03/08/23 @ 22:44 by Qamar Gutierrez MD) Mother DVT (deep venous thrombosis) Polymyositis Social History Smoking and tobacco status: never smoked Second hand smoke exposure: No Smoking risk assessment/counseling performed?: No Alcohol intake: never Desire information about alcohol rehabilitation?: No Counseling given: No Substance/Drug Use: never Desire information about substance/drug rehabilitation?: No Counseling given: No Physical Exam Const: COMMON NORMALS: patient oriented x3 EXAM LIMITATIONS: altered mental status (Unable to state date) GENERAL APPEARANCE: lethargic and ill appearing ORIENTATION/CONSCIOUSNESS: Yes lethargic HENMT: COMMON NORMALS: normocephalic and Normal external nose present HEAD & SCALP: normocephalic FACE & SINUS: normal facial exam NOSE: Normal external nose present Eye: COMMON NORMALS: Equal, round and reactive pupils present and EOMs intact bilaterally PUPIL: Yes Equal, round and reactive pupils present Neck/C-Spine: COMMON NORMALS: full ROM, no lymphadenopathy and no JVD Lymph: LYMPHATIC: no lymphadenopathy noted Chest: CHEST: Yes Symmetrical chest wall rise Resp: COMMON NORMALS: clear to auscultation bilaterally EFFORT & INSPECTION: Yes symmetric chest movement AUSCULTATION: clear to auscultation bilaterally Cardio: COMMON NORMALS: no JVD and S1 normal heart sound present HEART SOUNDS: S1 normal heart sound present GI: COMMON NORMALS: Normal to inspection, nondistended, normoactive bowel sounds present : COMMON NORMALS: Yes no CVA tenderness BLADDER/KIDNEY EXAM: Yes no CVA tenderness Back/Pelvis: COMMON NORMALS: no CVA tenderness Extremity: COMMON NORMALS: normal to inspection Neuro: COMMON NORMALS: patient oriented x3 SENSORIUM/ORIENTATION: Yes lethargic Course Vital Signs: Vital signs: Vital Signs Temperature 97.6 F 03/15/23 20:56 Pulse Rate 93 03/15/23 22:59 Respiratory Rate 21 H 03/15/23 22:59 Blood Pressure 118/62 03/15/23 22:59 Pulse Oximetry 93 03/15/23 22:59 Oxygen Delivery Me thod Nasal Cannula 03/15/23 22:30 Oxygen Flow Rate 6 03/15/23 22:30 MDM - General Adult Medical Decision Making Patient presents here with weakness along with altered mental status that is chronic in nature patient here is disheveled home health is concerned that she is not getting taking care of well at home. Patient is also having hypoxia here requiring 6 L her D-dimer is elevated of spoke to hospitalist will CAT scan on the way to the floor. Patient has UTI as well. Medical Records I reviewed the patient's medical records. Lab Data I reviewed the patient's lab results. 03/15/23 21:09 03/15/23 21:09 Radiology Impressions Chest X-Ray 03/15/23 20:53 IMPRESSION: 1. Very large hiatal hernia noted, unchanged. 2. Bibasilar compressive atelectasis. No consolidative pulmonary infiltrate noted. 3. There is no interval change from the prior examination. Laboratory Results WBC 16.34 10^3/uL (3.29-11.43) H 03/15/23 21:09 RBC 4.29 10^6/uL (3.85-5.65) 03/15/23 21:09 Hgb 12.50 g/dL (11.27-16.99) 03/15/23 21:09 Hct 38.0 % (36-47) 03/15/23 21:09 MCV 88.6 fl (85-98) 03/15/23 21:09 MCH 29.1 pg (27-33) 03/15/23 21: MCHC 32.9 g/dL (30-55) 03/15/23 21:09 RDW 14.4 % (12.1-15.1) 03/15/23 21:09 Plt Count 229 10^3/cmm (157-399) 03/15/23 21:09 MPV 11.2 fL (7.4-10.4) H 03/15/23 21:09 Neut % (Auto) 88.4 % 03/15/23 21:09 Lymph % (Auto) 3.5 % 03/15/23 21:09 [place] % (Auto) 6.4 % 03/15/23 21:09 Eos % (Auto) 0.0 % 03/15/23 21:09 Baso % (Auto) 0.2 % 03/15/23 21: Neut # (Auto) 14.43 10^3/uL (1.8-7.7) H 03/15/23 21:09 Lymph # (Auto) 0.6 10^3/uL (0.8-4.8) L 03/15/23 21:09 [place] # (Auto) 1.1 10^3/uL (0.2-0.9) H 03/15/23 21:09 Eos # (Auto) 0.0 10^3/uL (0.0-0.8) 03/15/23 21:09 Baso # (Auto) 0.0 10^3/uL (0.0-0.1) 03/15/23 21:09 Nucleated RBC % (auto) 0 % 03/15/23 21:09 Nucleated RBCs # 0.0 /100WBC 03/15/23 21:09 APTT 24.4 SECONDS (23.9-36.7) 03/15/23 21:09 D-Dimer >= 20.00 ug/mLFEU (0-0.59) H 03/15/23 21:00 Specimen Type Arterial 03/15/23 21:32 Sample Site Radial, right 03/15/23 21:32 ABG pH 7.44 (7.35-7.45) 03/15/23 21:32 ABG pCO2 45.8 mmHg (35-45) H 03/15/23 21:32 ABG pO2 66.7 mmHg (80.0-100.0) L 03/15/23 21:32 ABG HCO3 31.2 mmol/L (22-26) H 03/15/23 21:32 ABG Base Excess 6.1 mmol/L (-2.0-2.0) H 03/15/23 21:32 Rock Test Pos 03/15/23 21:32 Hematocrit 38.9 % (37-47) 03/15/23 21:32 O2 Delivery Device Nc 03/15/23 21:32 O2 Liters/Min 6.0 % 03/15/23 21:32 Swimming Pool Salesperson ID [email or web address] 03/15/23 21:32 Sodium 131 mmol/L (136-145) L 03/15/23 21:09 Potassium 3.5 mmol/L (3.5-5.1) 03/15/23 21: Chloride 95 mmol/L (98-107) L 03/15/23 21:09 Carbon Dioxide 23 mmol/L (22-29) 03/15/23 21:09 Anion Gap 16.5 (5-19) 03/15/23 21:09 BUN 32 mg/dL (8-23) H 03/15/23 21:09 Creatinine 1.2 mg/dL (0.5-0.9) H 03/15/23 21:09 GFR Calculation Not Reportable 03/15/23 21:09 Glucose 138 mg/dL (65-115) H 03/15/23 21:09 Calculated Osmolality 281 mOsm/kg (285-295) L 03/15/23 21:09 Calcium 8.8 mg/dL (8.5-10.5) 03/15/23 21:09 Magnesium 2.3 mg/dL (1.7-2.3) 03/15/23 21:09 Total Bilirubin 0.7 mg/dL (0.15-1.2) 03/15/23 21:09 AST 114 U/L (0-32) H 03/15/23 21:09 ALT 58 U/L (0-33) H 03/15/23 21:09 Alkaline Phosphatase 107 U/L (35-105) H 03/15/23 21:09 Ammonia 31 umol/L (11-51) 03/15/23 21:07 Troponin T Baseline 21 ng/L (0-10) H 03/15/23 21:09 NT-Pro-B Natriuret Pep 570 pg/mL (0-450) H 03/15/23 21:09 Total Protein 5.4 g/dL (6.6-8.7) L 03/15/23 21:09 Albumin 2.8 g/dL (3.5-5.2) L 03/15/23 21:09 Globulin 2.6 g/dL (1.3-4.6) 03/15/23 21:09 Urine Color Light yellow (Yellow) 03/15/23 21:19 Urine Appearance Sl hazy (CLEAR) A 03/15/23 21: Urine pH 5 (5-7) 03/15/23 21:19 Ur Specific [place] 1.025 (1.005-1.030) 03/15/23 21:19 Urine Protein 1+ (Negative) H 03/15/23 21:19 Urine Glucose (UA) Norm (Normal) 03/15/23 21: Urine Ketones Negative (Negative) 03/15/23 21:19 Urine Blood 2+ (Negative) H 03/15/23 21:19 Urine Nitrate Negative (Negative) 03/15/23 21: Urine Bilirubin Neg (Negative) 03/15/23 21: Urine Urobilinogen 1 mg/dL (Negative) H 03/15/23 21:19 Ur Leukocyte Esterase 2+ (Negative) H 03/15/23 21:19 Urine RBC 5-10 /hpf (0-2) H 03/15/23 21:19 Urine WBC 15-25 /hpf (0-5) H 03/15/23 21:19 Ur Squamous Epith Cells None /hpf (0-5) 03/15/23 21:19 Ur Transition Epith Cell 5-10 /hpf 03/15/23 21:19 Amorphous Sediment 1+ /hpf 03/15/23 21:19 Urine Bacteria 4+ /hpf (NONE) H 03/15/23 21:19 Coarse Granular Casts 0-4 /lpf H 03/15/23 21:19 Urine Mucus 2+ /hpf 03/15/23 21:19 SARS-CoV-2 Ag (Rapid) negative (Negative) 03/15/23 21:07 XR interpretation done by ED provider, pending radiology final review EKG Data EKG 1: I personally reviewed and interpreted this EKG as follows: EKG interpretation date: 03/15/23 EKG interpretation time: 20:56 Interpretation: nsr hr [address] or t wave abnormalities qrs 82 qtc 352 Computer generated interpretation: Chest X-Ray 03/15/23 20:53 IMPRESSION: 1. Very large hiatal hernia noted, unchanged. 2. Bibasilar compressive atelectasis. No consolidative pulmonary infiltrate noted. 3. There is no interval change from the prior examination. Discharge Plan Discharge Patient Disposition: Admitted As Inpatient Admit Provider: Qamar Gutierrez Clinical Impression: Acute on chronic alteration in mental status, Acute cystitis, Hypoxia Condition: Stable Coding Level of Care Code ED Official Court Interpreter for Sohan Rivera
[2023-03-15 21:22] LABS: Basophils % 0.2 %; Lymphocytes # 0.6 10^3/uL (0.8-4.8); Lymphocytes % 3.5 %; Mean Corpuscular HGB Conc 32.9 g/dL (30-55); Mean Corpuscular Hemoglobin 29.1 pg (27-33); Mean Corpuscular Volume 88.6 fl (85-98); Mean Platelet Volume 11.2 fL (7.4-10.4); Monocytes # 1.1 10^3/uL (0.2-0.9); Monocytes % 6.4 %; Neutrophils # 14.43 10^3/uL (1.8-7.7); Neutrophils % 88.4 %; Nucleated Red Blood Cells % 0 %; Platelet Count 229 10^3/cmm (157-399); Red Blood Count 4.29 10^6/uL (3.85-5.65); Red Cell Distribution Width 14.4 % (12.1-15.1); White Blood Count 16.34 10^3/uL (3.29-11.43)
[2023-03-15 21:30] LABS: Ammonia 31 umol/L (11-51)
[2023-03-15 21:36] LABS: ABG PCO2 45.8 mmHg (35-45); ABG PH Result 7.44 (7.35-7.45); Arterial Blood Gas Hematocrit 38.9 % (37-47); Base Excess ABG 6.1 mmol/L (-2.0-2.0); Blood Gas Allen Test Pos; Blood Gas Sample Site Radial, right; Blood Gas Sample Type Arterial; HCO3 ABG 31.2 mmol/L (22-26); Oxygen Device NC; PO2 ABG 66.7 mmHg (80.0-100.0)
[2023-03-15 21:36] LABS: Partial Thromboplastin Time 24.4 SECONDS (23.9-36.7)
[2023-03-15 21:39] LABS: Add Urine Microscopic? YES; Bilirubin Urine Neg (Negative); Blood Urine 2+ (Negative); Glucose Urine UA Norm (Normal); Ketones Urine Negative (Negative); Leukocyte Esterase Urine 2+ (Negative); Nitrate Urine Negative (Negative); Protein Urine 1+ (Negative); Specific Gravity, Urine 1.025 (1.005-1.030); Urine Appearance SL Hazy (CLEAR); Urine Color Light yellow (Yellow); Urobilinogen Urine 1 mg/dL (Negative); pH Urine 5 (5-7)
[2023-03-15 21:40] LABS: Alanine Aminotransferase 58 U/L (0-33); Albumin Level 2.8 g/dL (3.5-5.2); Alkaline Phosphatase 107 U/L (35-105); Aspartate Amino Transferase 114 U/L (0-32); Blood Urea Nitrogen 32 mg/dL (8-23); Calcium 8.8 mg/dL (8.5-10.5); Carbon Dioxide 23 mmol/L (22-29); Chloride 95 mmol/L (98-107); Globulin 2.6 g/dL (1.3-4.6); Glucose 138 mg/dL (65-115); Magnesium 2.3 mg/dL (1.7-2.3); Osmolality Calculated 281 mOsm/kg (285-295); Sodium 131 mmol/L (136-145); Total Bilirubin 0.7 mg/dL (0.15-1.2); Total Protein 5.4 g/dL (6.6-8.7)
[2023-03-15 21:41] LABS: Troponin(5th) Baseline 21 ng/L (0-10)
[2023-03-15 21:41] LABS: WBC Urine 15-25 /hpf (0-5)
[2023-03-15 21:41] LABS: SARS Covid-2 Antigen negative (Negative)
[2023-03-15 21:42] LABS: Add Urine Culture? Yes; Amorphous Sediment Urine 1+ /hpf; Bacteria Urine 4+ /hpf; Coarse Granular Casts Urine 0-4 /lpf; Mucus Urine 2+ /hpf
[2023-03-15 21:45] LABS: Anion Gap 16.5 (5-19); Potassium 3.5 mmol/L (3.5-5.1)
[2023-03-15 22:00] VITALS: BP 117/86; PULSE 92; RESP 20; O2SAT 93
[2023-03-15] MEDS: cefTRIAXone 1,000 MG in sodium chloride 0.9% (plus) 50 ML 100 MG IV (22:12)
[2023-03-15 22:15] LABS: NT Pro B Type Natriuretic Pept 570 pg/mL (0-450)
[2023-03-15] MEDS: azithromycin 500 MG in sodium chloride 0.9% 250 ML 250 MG IV (22:27)
[2023-03-15 22:30] VITALS: BP 118/62; PULSE 92; RESP 21; O2SAT 93
--- NOTE | 2023-03-15 22:40 | ECG_ITS ---
[facility] Test Date: 2023-03-15 Pat Name: Maria Alejandra Zayas Department: Room: 277 Gender: Female [employer]: : 1935 Requested By: Edgard Mares Order Number: [id number] Luis Carlos MD: Rodriguez Guadalupe M.D. Measurements Intervals Fischer Rate: 95 P: 61 LA: 111 QRS: 55 QRSD: 85 T: 83 QT: 311 QTc: 391 Interpretive Statements SINUS RHYTHM WITH SHORT LA INTERVAL WITH OCCASIONAL SUPRAVENTRICULAR PREMATURE COMPLEXES POSSIBLE LEFT ATRIAL ENLARGEMENT [-0.1mV P-WAVE IN V1/V2] NONSPECIFIC T-WAVE ABNORMALITY Compared to ECG 03/15/2023 20:56:38 No significant changes Electronically Signed On 03-15-2023 23:43:24 CDT by Rodriguez Guadalupe M.D. [email or web address]
[2023-03-15 22:59] VITALS: BP 118/62; PULSE 93; RESP 21; O2SAT 93
[2023-03-15 23:01] LABS: D Dimer >= 20.00 ug/mLFEU (0-0.59)
--- NOTE | 2023-03-15 23:06 | CTR_ITS ---
PROCEDURE INFORMATION: Exam: CTA Chest With Contrast Exam date and time: 03/15/2023 11:13 PM Age: 88 years old Clinical indication: Shortness of breath; Additional info: SOB TECHNIQUE: Imaging protocol: Computed tomographic angiography of the chest with contrast. Exam focused on the arteries. 3D rendering (Not supervised by radiologist): MIP and/or 3D reconstructed images were created by the technologist. Radiation optimization: All CT scans at this facility use at least one of these dose optimization techniques: automated exposure control; mA and/or kV adjustment per patient size (includes targeted exams where dose is matched to clinical indication); or iterative reconstruction. Contrast material: OMNI 350; Contrast volume: 100 ml; Contrast route: INTRAVENOUS (IV); REPORTING DATA: Count of CT and Cardiac NM exams in prior 12 months: This patient has received 3 known CTs and 0 known cardiac nuclear medicine studies in the 12 months prior to the current study. COMPARISON: CT angio chest PE protcl [id number] 05/23/2019 4:54 PM RADIATION DOSE METRICS: Total DLP (mGy-cm): 306.77 FINDINGS: Pulmonary arteries: Multiple filling defects in branches of the right pulmonary artery, consistent with acute pulmonary emboli. Small peripheral left lower lobe emboli also noted. Aorta: Atherosclerosis of the thoracic aorta. No aortic aneurysm. No aortic dissection. Lungs: Compressive atelectasis in the lower lobes. Centrilobular emphysema bilaterally. No pulmonary infiltrates. Pleural spaces: No pneumothorax. Small bilateral pleural effusion. Heart: Heart RV/LV ratio is 0.9. No cardiomegaly noted. Lymph nodes: Unremarkable. No enlarged lymph nodes. Diaphragm: Very large hiatal hernia noted. The stomach and a portion of the colon are noted within the hernia. There is also mild ascites in the hernia. Bones/joints: Unremarkable. No acute osseous abnormality. Soft tissues: Unremarkable. CT/CT angio chest PE protcl [id number] IMPRESSION: 1. Bilateral acute pulmonary emboli, right worse than left. 2. Mild cardiomegaly. RV/LV ratio is 0.9. 3. Very large hiatal hernia noted. 4. Compressive atelectasis in the bilateral lower lobe secondary to the hiatal hernia. Small bilateral pleural effusions are also noted. 5. Ascites noted in the upper abdomen.
[2023-03-15 23:10] LABS: Troponin 5 2HR 20.97 ng/L (0-10)
[2023-03-15 23:11] LABS: Troponin 5 2HR Delta -0.03 ABS# (0-10)
[2023-03-15] MEDS: iohexol 350 mg/mL 500 mL Btl (per mL) IV (23:21)
--- NOTE | 2023-03-15 23:57 | PC.NURSE ---
Patient confused at this time. Patient states it's 1973 and states she does not know where she is. No family at bedside. Unable to complete admission assessment at this time.
[2023-03-16] VITALS (17 sets, daily range): BP systolic 103–142; BP diastolic 59–79; PULSE 77–88; RESP 15–26; TEMP 36.6–37.3; O2SAT 90–96
--- NOTE | 2023-03-16 00:08 | PC.NURSE ---
Per Dr Mares, Dr Gutierrez notified of ct scan results.
--- NOTE | 2023-03-16 00:09 | USCV_ITS ---
Maria Alejandra Zayas Age: 88 Gender: F : 1935 Exam Date: 03/16/2023 03:30 Ordering Phys: Qamar Gutierrez MD Technologist: RADHA [place] [facility] [place]: Patient had complete echo 03/09/23. Dr. Gutierrez was called. He stated that he only wanted limited study for EF only BP: 118 / 62 HR: 85 Rhythm: Sinus Technical Quality: Adequate MEASUREMENTS (Male / Female) Normal Values 2D ECHO LV Diastolic Diameter PLAX 3.3 cm 4.2 - 5.9 / 3.9 - 5.3 cm LV Systolic Diameter PLAX 2.1 cm IVS Diastolic Thickness 1.1 cm 0.6 - 1.0 / 0.6 - 0.9 cm IVS Systolic Thickness 1.4 cm LVPW Diastolic Thickness 1.2 cm 0.6 - 1.0 / 0.6 - 0.9 cm LVPW Systolic Thickness 1.4 cm LV Ejection Fraction 2D Teich 67.6 % LV Ejection Fraction MOD 2C 60.7 % LV Ejection Fraction 2C AL 63.1 % FINDINGS Left Ventricle Normal left ventricular cavity size. Normal left ventricular systolic function. Left ventricular ejection fraction is estimated at 65 %. No diagnostic regional wall motion abnormalities. Right Ventricle Normal right ventricular size and systolic function. Right Atrium Normal right atrial size. Left Atrium Mildly increased left atrial size. Mitral Valve Mild mitral annular calcification. Aortic Valve Aortic valve not well visualized. Tricuspid Valve Structurally normal tricuspid valve. Pulmonic Valve Pulmonic valve not well visualized. Pericardium No pericardial effusion. Aorta Aorta not well visualized. IVC Inferior vena cava not visualized. CONCLUSIONS 1. This is a limited echocardiogram. 2. Normal left ventricular size and systolic function. Left ventricular ejection fraction estimated at 65%. No diagnostic regional wall motion abnormality. 3. No significant change when compared to study dated 03/09/2023. Courtney Raymundo MD (Electronically Signed) Final Date: 16 March 2023 13:07 S
--- NOTE | 2023-03-16 00:09 | USCV_ITS ---
Maria Alejandra Zayas Age: 88 Gender: F : 1935 Exam Date: 03/16/2023 03:07 Ordering Phys: Qamar Gutierrez MD Technologist: RADHA Exam Location: [facility] [place] Indication: pe patient is unresponsive in 277-2. HISTORY: pe patient is unresponsive in 277-2. PROCEDURES: Venous duplex imaging was performed in bilateral lower extremities. The following venous structures were evaluated: common femoral vein, profunda vein, proximal portion of the greater saphenous vein, superficial femoral vein, and the popliteal vein. In addition, the posterior tibial veins were evaluated. Serial compression, augmentation maneuvers, and spectral Doppler flow evaluation were performed, which were normal. Bilaterally, the common femoral, superficial femoral, profunda femoral, popliteal, posterior tibial, and LEFT greater saphenous veins, were identified and interrogated in the standard fashion. These veins were found to be easily compressible with spontaneous blood flow. No evidence thrombus noted. Note that the RIGHT greater saphenous vein does NOT visualize. Has there been prior vein harvesting for CABG or other procedure? CONCLUSIONS No evidence of right lower extremity DVT. No evidence of left lower extremity DVT. Right GSV not visualized and may have been harvested for prior procedure Victor Hugo Hernandez MD (Electronically Signed) Final Date: 16 March 2023 09:22 S
--- NOTE | 2023-03-16 00:32 | P.HP_ITS ---
Providers/Chief Complaint Admitting Physician: Qamar Gutierrez MD Chief Complaint: AMS History of Present Illness Maria Alejandra Zayas is a 88 year old female with a past medical history of lacunar stroke, history of DVT on Xarelto, history of atrial septal aneurysm, recently was discharged for acute CVA, with evidence of cerebral atrophy, who presents to [facility] due to altered mental status, with shortness of breath. Currently patient is alert to person, not to place, not to time she follows simple command such as smiling for me, moving both upper extremities, moving both lower extremities, I cannot discern any focal weakness, but she does not follow neurologic testing that well, currently on 6 l, she had a temp 100.2 in EMS, patient was discharged home with her , initially in the emergency room, patient was hypoxic, concerns for UTI, ER provider spoke to me about the case, I advised that given her immobility, and her disheveled appearance according to ER provider that her family had not been taking care of her, my concern was DVT and ultimately PE associated with her hypoxia, I recommended ER provider to order D-dimer, D-dimer was ordered was over 20, ER provider ordered a CT angiogram of the chest, I was called by nursing staff from the emergency room that the CT angiogram of the chest showed bilateral pulmonary emboli, currently patient has acute encephalopathy, cannot provide any reliable answers, is on 6 L, blood pressure 118/62, pulse 93, respiratory 21, temperature 97.6, O2 sats 93%, patient appears unkempt, disheveled, she is received Rocephin, azithromycin, currently patient on the medical floors, I going to start her on anticoagulation, heparin drip, patient is O2 sats on 6 L, remain in the low 80s, will have respiratory therapy to take a look at patient, place her on heated hig h flow, will consider BiPAP Review of Systems General: Reports: ROS unobtainable due to mental status Medications/Allergies Home Medications Medication Instructions Recorded Confirmed Last Taken Type lisinopril 5 mg tablet See Rx Instructions .Route 12/02/22 03/09/23 03/08/23 Rx .COMPLEX #30 tabs rosuvastatin 20 mg tablet See Rx Instructions .Route 12/30/22 03/09/23 03/08/23 Rx .COMPLEX #30 tabs aspirin 81 mg tablet,delayed 81 mg PO DAILY #30 tabs 03/10/23 Unknown Rx release citalopram 20 mg tablet 20 mg PO DAILY #30 tabs 03/10/23 Unknown Rx donepezil 5 mg tablet 10 mg PO BEDTIME #30 tabs 03/10/23 Unknown Rx levetiracetam 100 mg/mL oral 500 mg (5 mL) PO BID #60 mL 03/10/23 Unknown Rx solution Allergies Allergy/AdvReac Type Severity Reaction Status Date / Time Penicillins Allergy Mild rash Verified 03/15/23 21:00 PFSH Acute PFSH: Medical History Abnormal MRI of head Anticoagulated by anticoagulation treatment Atrial septal aneurysm CVA (cerebral vascular accident) Dementia Essential hypertension History of CVA (cerebrovascular accident) History of CVA (cerebrovascular accident) without residual deficits History of DVT (deep vein thrombosis) History of pulmonary embolism History of TIA (transient ischemic attack) Hyperlipemia Hypoxia Vitamin D deficiency Surgical History History of appendectomy Family History Mother DVT (deep venous thrombosis) Polymyositis Social History Smoking and tobacco status: never smoked Second hand smoke exposure: No Smoking risk assessment/counseling performed?: No Alcohol intake: never Desire information about alcohol rehabilitation?: No Counseling given: No Substance/Drug Use: never Desire information about substance/drug rehabilitation?: No Counseling given: No Vitals/I&O/Wt Last Vital Signs Temp 97.6 F 03/15/23 20:56 Pulse 93 03/15/23 22:59 Resp 21 H 03/15/23 22:59 BP 118/62 03/15/23 22:59 Pulse Ox 93 03/15/23 22:59 O2 Del Method Nasal Cannula 03/15/23 22:49 O2 Flow Rate 6 03/15/23 22:30 03/15/23 03/15/23 03/16/23 14:59 22:59 06:59 Intake Total 50 / 50 250 / 300 Balance 50 / 50 250 / 300 Weight last 48 hrs Weight 58.967 kg Physical Exam Const: COMMON NORMALS: no acute distress EXAM LIMITATIONS: altered mental status GENERAL APPEARANCE: frail appearing NUTRITIONAL APPEARANCE: thin and underweight ORIENTATION/CONSCIOUSNESS: Yes awake and Yes confused; not oriented to person, not oriented to place and not oriented to time HENMT: COMMON NORMALS: normocephalic HEAD & SCALP: normocephalic Eye: COMMON NORMALS: Equal, round and reactive pupils present Neck/C-Spine: COMMON NORMALS: no JVD Lymph: LYMPHATIC: no lymphadenopathy noted Resp: COMMON NORMALS: normal respiratory effort, No retractions and No use of accessory muscles AUSCULTATION: wheezes Cardio: COMMON NORMALS: regular rate, regular rhythm, S1 normal heart sound present and S2 normal heart sound present RATE: regular rate RHYTHM: regular rhythm HEART SOUNDS: S1 normal heart sound present and S2 normal heart sound present GI: COMMON NORMALS: Normal to inspection, nondistended, normoactive bowel sounds present, Soft to palpation and non-tender : COMMON NORMALS: Yes no CVA tenderness Extremity: COMMON NORMALS: no pedal edema Neuro: SENSORIUM/ORIENTATION: Yes alert, No oriented to person, No oriented to place and No oriented to time Data 03/15/23 21:09 03/15/23 21:09 Micro: Microbiology 03/15/23 22:02 Blood Culture - Preliminary Blood SPECIMEN COLLECTED 03/15/23 21:55 Blood Culture - Preliminary Blood SPECIMEN COLLECTED A&P Assessment and plan (1) Acute encephalopathy: (2) Bilateral pulmonary embolism: (3) NSTEMI (non-ST elevated myocardial infarction): (4) JAMES (acute kidney injury): (5) Transaminitis: (6) Acute hypoxic respiratory failure: (7) Acute cystitis: (8) Hyponatremia: (9) Protein calorie malnutrition: (10) Physical deconditioning: (11) Aspiration pneumonia: Plan Acute encephalopathy -Secondary to bilateral pulmonary emboli, aspiration pneumonia, UTI, has underlying dementia Acute hypoxic respiratory failure -Secondary to bilateral pulmonary emboli -Possible aspiration pneumonia -During her prior hospitalization her Xarelto was stopped? Plan -Patient is already on medical floors, given her worsening respiratory status we will have to consider moving her to ICU as now she has newly diagnosed pulmonary emboli bilaterally -Start heparin drip -Cardiac echo ordered -Telemetry monitoring -Monitor respiratory status closely -DuoNeb -Continue Rocephin, azithromycin Acute bilateral pulmonary emboli -Heparin drip as above NSTEMI -Likely type II, related to acute pulmonary emboli as above -Serial EKGs, serial troponins,, 2 monitoring Concerns for aspiration pneumonia, n.p.o., speech therapy eval UTI, antibiotics as above Hyponatremia, secondary dehydration IV fluids JAMES secondary dehydration, IV fluids Protein calorie malnutrition, physical deconditioning PT OT, speech therapy, dietary eval For now full code Heparin for DVT prophylaxis Attestations Medical Necessity Statement*: Patient requires hospitalization, inpatient, greater than 2 midnights, for acute hypoxic respiratory failure secondary to bilateral pulm emboli, concern for aspiration ammonia, NSTEMI, UTI, hyponatremia, JAMES Coding Level of Care Code Acute Code for g Fwd Diagnoses Acute encephalopathy G93.40 Bilateral pulmonary embolism I26.99 NSTEMI (non-ST elevated myocardial infarction) I21.4 JAMES (acute kidney injury) N17.9 Transaminitis R74.01 Acute hypoxic respiratory failure J96.01 Acute cystitis N30.00 Hyponatremia E87.1 Protein calorie malnutrition E46 Physical deconditioning R53.81 Aspiration pneumonia J69.0
[2023-03-16] MEDS: heparin 5,000 unit/mL INJ 1 mL IV (01:18)
[2023-03-16] MEDS: pantoprazole 40 mg SDV IVP (01:18)
[2023-03-16] MEDS: sodium chloride 0.9% 1,000 ML 75 ML IV (01:19)
[2023-03-16] MEDS: heparin drip 25,000 UNIT/500 ML PREMIX 16.51 UNIT IV (01:43)
[2023-03-16 01:55] LABS: Procalcitonin 1.22 ng/mL (0-0.5); Thyroid Stimulating Hormone 1.31 uIU/mL (0.27-4.20)
[2023-03-16 02:23] LABS: Lactic Sepsis W/Reflex 1.9 mmol/L (0.5-2.2)
--- NOTE | 2023-03-16 02:49 | PC.NURSE ---
Heparin drip infusing at 14/units/kg/hr (750 units/hr) per protocol, which is 15 ml/hr on pump. Mar not matching pump in ml/hr.
--- NOTE | 2023-03-16 02:54 | ECG_ITS ---
[facility] Test Date: 2023-03-16 Pat Name: Maria Alejandra Zayas Department: Room: 277 Gender: Female Travel Consultant: : [id number] Requested By: Edgard Mares Order Number: [id number] Luis Carlos MD: Courtney Raymundo M.D. Measurements Intervals [place] Rate: 87 P: 66 W[place]: 110 QRS: 39 QRSD: 81 T: 86 QT: 319 QTc: 384 Interpretive Statements SINUS RHYTHM WITH SHORT [place] INTERVAL NONSPECIFIC T-WAVE ABNORMALITY Compared to ECG 03/15/2023 22:40:22 No significant changes Electronically Signed On 03-16-2023 13:01:22 CDT by Courtney Raymundo M.D. [email or web address] [email or web address] state hospitalAccumuli Securityupper [email or web address] [id number]
[2023-03-16 03:08] LABS: Platelet Count 297 10^3/cmm (157-399)
[2023-03-16 03:24] LABS: Troponin 5 6HR 25.03 ng/L (0-10)
[2023-03-16 03:31] LABS: Troponin 5 6HR Delta 4.03 ng/L (0-12)
[2023-03-16] MEDS: ipratropium-albuterol 3 mL Neb INHALATION ×4 (03:53→20:31)
--- NOTE | 2023-03-16 05:37 | PC.NURSE ---
Called to get information for admission assessment. When asking questions, he stated I can't hear you after each question. Attempt to call daughter and she did not answer. Voicemail left asking to call us back.
--- NOTE | 2023-03-16 07:51 | PC.PHAR ---
NURSING STAFF CHANGING PT AND BEDDING WHEN ATTEMPTING MED REC. 03/16/23
--- NOTE | 2023-03-16 08:10 | PC.PHAR ---
PT UNABLE TO CONFIRM MED LIST. UNABLE TO MAKE CONTACT WITH OR DAUGHTER. WILL CONFIRM MED LIST WITH [facility] WHEN THE OPEN AT 9AM 03/16/23
--- NOTE | 2023-03-16 08:38 | PC.NURSE ---
Ptt 101. Heparin gtt decreased to 12ml per hour. Next PTT at 1430
--- NOTE | 2023-03-16 09:28 | PC.PHAR ---
PT IN UNRESPONSIVE STATE. VERIFIED MEDICATIONS WITH [facility]. PT HAD XARLETO 20 MG 1 DAILY LAST FILLED 12/30/22. PHARMACY STAFF BELIEVE SHE NO LONGER TAKES THIS MEDICATION.
--- NOTE | 2023-03-16 15:16 | PM.PN ---
Subjective Subjective: Patient is awake alert and oriented x3 though extremely tired and fatigued. She wakes up easily to calling name and answers all questions however states she is extremely fatigued. Currently on high flow nasal cannula at 4 L/min. Oxygen requirement stable over last night. Afebrile. Hemodynamically stable. Vitals/I&O/Wt Last Vital Signs Temp 98.0 F 03/16/23 12:00 Pulse 79 03/16/23 12:49 Resp 16 03/16/23 12:49 BP 142/70 03/16/23 12:00 Pulse Ox 91 03/16/23 12:49 O2 Del Method High Flow Nasal Cannula 03/16/23 12:49 O2 Flow Rate 4 03/16/23 12:49 03/16/23 03/16/23 03/16/23 06:59 14:59 22:59 Intake Total 250 / 300 1113.369 / 1113.369 Balance 250 / 300 1113.369 / 1113.369 Weight last 48 hrs Weight 54.658 kg Weight 58.967 kg Physical Exam Narrative: General: No acute distress, AO x3, chronically ill-appearing frail elderly lady HEENT: PERRLA, pupils bilaterally equal and reactive, pallors not present Chest: Normal vesicular breath sounds, no added sounds, equal good air entry bilaterally CVS: S1-S2 regular, no murmurs, no tachycardia, no gallops, no rubs Abdomen: Soft, nontender, no organomegaly, bowel sounds present Neuro: No focal deficits, no facial deformity, AO x3, power 5/5 in all limbs Data 03/16/23 02:40 03/15/23 21:09 Micro: Microbiology 03/15/23 22:02 Blood Culture - Preliminary Blood SPECIMEN COLLECTED 03/15/23 21:55 Blood Culture - Preliminary Blood SPECIMEN COLLECTED A&P Assessment and plan (1) Acute encephalopathy: (2) Bilateral pulmonary embolism: (3) NSTEMI (non-ST elevated myocardial infarction): (4) JAMES (acute kidney injury): (5) Transaminitis: (6) Acute hypoxic respiratory failure: (7) Acute cystitis: (8) Hyponatremia: (9) Protein calorie malnutrition: (10) Physical deconditioning: (11) Aspiration pneumonia: Plan Acute encephalopathy -S this is resolved, patient is currently at baseline mentation, oriented x3 though extremely fatigued. Acute hypoxic respiratory failure -Secondary to bilateral pulmonary emboli -Possible aspiration pneumonia -During her prior hospitalization her Xarelto was stopped after having been continued for several years for what appears to be a DVT. Unknown if it was a provoked or an unprovoked DVT in the past. Given that she has had a PE shortly after being taken off of Xarelto, may have underlying procoagulant state, will likely need long-term anticoagulation going forward. We will plan to switch to DOACs upon discharge. Pending speech therapy evaluation to assess for aspiration. #Bilateral pulmonary embolism Currently on treatment with heparin infusion We will plan to transition to oral DOAC's once patient is more alert, less fatigued. Supplemental O2 to keep saturation greater than 92%. Echocardiogram showing LVEF 65%, no diagnostic regional wall motion abnormalities, normal right ventricular size and function. UTI based on a positive UA, antibiotics ceftriaxone empirically, awaiting urine culture Hyponatremia, secondary dehydration IV fluids, discontinue IV fluids to minimize risk for fluid overload. Reassess with a.m. labs JAMES secondary dehydration, IV fluids Protein calorie malnutrition, physical deconditioning PT OT, speech therapy, dietary eval Disposition: Patient's elderly states he is unable to care for patient at home in her current state of deconditioning. Case management consulted for appropriate disposition planning For now full code Heparin for DVT prophylaxis Attestations Medical Necessity Statement*: Continued hospitalization for anticoagulation for bilateral PE, close monitoring of respiratory status, empiric antibiotics, awaiting cultures Coding Level of Care Code Acute Code for Chg Fwd High MDM includes number and complexity of problems actively addressed during encounter, amount and/or complexity of data reviewed/ordered and described risk of complication, morbidity or mortality of management as documented Diagnoses Acute encephalopathy G93.40 Bilateral pulmonary embolism I26.99 NSTEMI (non-ST elevated myocardial infarction) I21.4 JAMES (acute kidney injury) N17.9 Transaminitis R74.01 Acute hypoxic respiratory failure J96.01 Acute cystitis N30.00 Hyponatremia E87.1 Protein calorie malnutrition E46 Physical deconditioning R53.81 Aspiration pneumonia J69.0
[2023-03-16 15:23] LABS: Partial Thromboplastin Time 73.2 SECONDS (23.9-36.7)
[2023-03-16] MEDS: donepezil 5 MG Tablet 10 MG PO (20:33)
[2023-03-16] MEDS: atorvastatin 40 mg Tablet PO (20:33)
[2023-03-16] MEDS: cefTRIAXone 1,000 MG in sodium chloride 0.9% (plus) 50 ML 100 MG IV (22:02)
[2023-03-16 22:32] LABS: Partial Thromboplastin Time 61.5 SECONDS (23.9-36.7)
[2023-03-16] MEDS: azithromycin 500 MG in sodium chloride 0.9% 250 ML 250 MG IV (22:32)
[2023-03-17] VITALS (16 sets, daily range): BP systolic 109–166; BP diastolic 69–80; PULSE 72–95; RESP 16–19; TEMP 36.4–36.7; O2SAT 90–98
[2023-03-17] MEDS: ipratropium-albuterol 3 mL Neb INHALATION ×5 (00:17→20:39)
[2023-03-17] MEDS: pantoprazole 40 mg SDV IVP (00:58)
--- NOTE | 2023-03-17 01:29 | PC.NURSE ---
at 2153 PTT was 61.5; no change in heparin drip infusion at this time. Next lab draw for PTT is scheduled for 344
[2023-03-17 03:59] LABS: Basophils % 0.2 %; Eosinophils # 0.1 10^3/uL (0.0-0.8); Eosinophils % 0.3 %; Hematocrit 37.7 % (36-47); Lymphocytes # 0.8 10^3/uL (0.8-4.8); Lymphocytes % 5.8 %; Mean Corpuscular HGB Conc 31.8 g/dL (30-55); Mean Corpuscular Hemoglobin 28.5 pg (27-33); Mean Corpuscular Volume 89.5 fl (85-98); Mean Platelet Volume 11.1 fL (7.4-10.4); Monocytes # 1.2 10^3/uL (0.2-0.9); Monocytes % 7.9 %; Neutrophils # 12.25 10^3/uL (1.8-7.7); Neutrophils % 84.4 %; Nucleated Red Blood Cells % 0 %; Platelet Count 296 10^3/cmm (157-399); Red Blood Count 4.21 10^6/uL (3.85-5.65); Red Cell Distribution Width 14.4 % (12.1-15.1); White Blood Count 14.52 10^3/uL (3.29-11.43)
[2023-03-17 04:12] LABS: Partial Thromboplastin Time 67.9 SECONDS (23.9-36.7)
[2023-03-17 04:20] LABS: Anion Gap 10.3 (5-19); Blood Urea Nitrogen 30 mg/dL (8-23); Calcium 8.8 mg/dL (8.5-10.5); Carbon Dioxide 28 mmol/L (22-29); Chloride 99 mmol/L (98-107); Glucose 126 mg/dL (65-115); Magnesium 2.2 mg/dL (1.7-2.3); Osmolality Calculated 286 mOsm/kg (285-295); Phosphorus 2.4 mg/dL (2.5-4.5); Potassium 3.3 mmol/L (3.5-5.1); Sodium 134 mmol/L (136-145)
--- NOTE | 2023-03-17 04:22 | PC.NURSE ---
at 0349 PTT came back at 97.9; so no changes in rate at this time. Orders to redraw PTT at 0945 were put it.
[2023-03-17 10:11] LABS: Partial Thromboplastin Time 63.9 SECONDS (23.9-36.7)
[2023-03-17] MEDS: aspirin 81 mg EC Tablet PO (10:17)
--- NOTE | 2023-03-17 10:19 | PC.CHAP ---
Pastoral Care Encounter/Spiritual Assessment Type of Contact [] Declined rock star visit [] Patient/Family/Request visit [] Outpatient visit [] Follow-up visit [] Physician referral [] Code/Alert [x] Routine visit [] Staff referral [] Actively dying [] Patient sleeping [] Family support [] [] Out of room [] Palliative care [] [] Receiving care in room [] Pre-surgical visit [] Trauma [] Long length of stay [] ICU visit [] Other: Relational/Emotional Strength [] Patient feels connected with others/family/visitors/staff [] Distress [] Loneliness/isolation [] Abandonment Spirituality of Patient [] Person of Jennifer [] Attends Catholic of their Jennifer [] Believes in Prayer [] Reads Bible or Jehovah'S Witness materials [] There are Spiritual issues to be addressed Dealer Relationship Manager Interventions [x] Prayer [] Active listening [] Non-anxious presence [] Spiritual/emotional support [] Crisis/trauma care [] Spiritual counseling [] Bereavement support [] Provided bereavement packet [] Provided Bible/devotional materials [] Provided toy/stuffed animal, coloring book to patient or family member [] Provided Communion [] Anointing/[place] [] Salvation [] Completed spiritual assessment [] Other: Impact on Illness or Injury [] Angry [] Fearful [] Anxious [] Often cries [] Exhaustion [] Unable to work [] Unable to attend sikh [] Unable to walk/stand [] Unable to read [] Unable to drive [] Unable to eat/drink [] Unable to sleep [] Unable to be with family [] Patient intubated [] Other: Summary Time spent with patient 10 min
--- NOTE | 2023-03-17 16:27 | P.PN_ITS ---
Subjective Subjective: no new complaints today , continues to be fatigued, staying in bed Vitals/I&O/Wt Last Vital Signs Temp 97.5 F L 03/17/23 15:47 Pulse 78 03/17/23 15:47 Resp 16 03/17/23 15:47 BP 119/80 03/17/23 15:47 Pulse Ox 91 03/17/23 15:47 O2 Del Method Nasal Cannula 03/17/23 15:47 O2 Flow Rate 5 03/17/23 15:46 03/17/23 03/17/23 03/17/23 06:59 14:59 22:59 Intake Total 250 / 1562.872 301.877 / 301.877 Balance 250 / 1562.872 301.877 / 301.877 Weight last 48 hrs Weight 54.658 kg Weight 58.967 kg Physical Exam Narrative: General: No acute distress, AO x3, chronically ill-appearing frail elderly lady HEENT: PERRLA, pupils bilaterally equal and reactive, pallors not present Chest: Normal vesicular breath sounds, no added sounds, equal good air entry bilaterally CVS: S1-S2 regular, no murmurs, no tachycardia, no gallops, no rubs Abdomen: Soft, nontender, no organomegaly, bowel sounds present Neuro: No focal deficits, no facial deformity, AO x3, power 5/5 in all limbs Data 03/17/23 03:49 03/17/23 03:49 Micro: Microbiology 03/15/23 21:19 Urine Culture - Preliminary Urine,Clean Catch Gram Negative Rods 03/15/23 22:02 Blood Culture - Preliminary Blood NEGATIVE TO DATE 03/15/23 21:55 Blood Culture - Preliminary Blood NEGATIVE TO DATE A&P Assessment and plan (1) Acute encephalopathy: (2) Bilateral pulmonary embolism: (3) NSTEMI (non-ST elevated myocardial infarction): (4) JAMES (acute kidney injury): (5) Transaminitis: (6) Acute hypoxic respiratory failure: (7) Acute cystitis: (8) Hyponatremia: (9) Protein calorie malnutrition: (10) Physical deconditioning: (11) Aspiration pneumonia: Plan Acute encephalopathy - this is resolved, patient is currently at baseline mentation, oriented x3 though extremely fatigued. Acute hypoxic respiratory failure -Secondary to bilateral pulmonary emboli -Possible aspiration pneumonia -During her prior hospitalization her Xarelto was stopped after having been continued for several years for what appears to be a DVT. Unknown if it was a provoked or an unprovoked DVT in the past. Given that she has had a PE shortly after being taken off of Xarelto, may have underlying procoagulant state, will likely need long-term anticoagulation going forward. We will plan to switch to DOACs upon discharge. currently on a dysphagia diet #Bilateral pulmonary embolism Currently on treatment with heparin infusion We will plan to transition to oral DOAC's once patient is more alert, less fatigued. Supplemental O2 to keep saturation greater than 92%. Echocardiogram showing LVEF 65%, no diagnostic regional wall motion abnor malities, normal right ventricular size and function. UTI based on a positive UA, antibiotics ceftriaxone empirically, awaiting urine culture, currently prelim GNR Hyponatremia, secondary dehydration IV fluids, discontinue IV fluids to minimize risk for fluid overload. Reassess with a.m. labs JAMES secondary dehydration, improving, d/c fluids today Protein calorie malnutrition, physical deconditioning PT OT, speech therapy, dietary eval Disposition: Patient's elderly states he is unable to care for patient at home in her current state of deconditioning. Case management consulted for appropriate disposition planning. PT / OT assessment For now full code Heparin for DVT prophylaxis Attestations Medical Necessity Statement*: continued heparin drip, iv abx, therapy assessments Coding Level of Care Code Acute Code for Chg Fwd Diagnoses Acute encephalopathy G93.40 Bilateral pulmonary embolism I26.99 NSTEMI (non-ST elevated myocardial infarction) I21.4 JAMES (acute kidney injury) N17.9 Transaminitis R74.01 Acute hypoxic respiratory failure J96.01 Acute cystitis N30.00 Hyponatremia E87.1 Protein calorie malnutrition E46 Physical deconditioning R53.81 Aspiration pneumonia J69.0
[2023-03-17] MEDS: heparin drip 25,000 UNIT/500 ML PREMIX 13.13 UNIT IV (17:10)
[2023-03-17 18:08] LABS: Partial Thromboplastin Time 62.2 SECONDS (23.9-36.7)
[2023-03-17] MEDS: donepezil 5 MG Tablet 10 MG PO (21:10)
[2023-03-17] MEDS: atorvastatin 40 mg Tablet PO (21:10)
[2023-03-17] MEDS: cefTRIAXone 1,000 MG in sodium chloride 0.9% (plus) 50 ML 100 MG IV (22:54)
[2023-03-17] MEDS: azithromycin 500 MG in sodium chloride 0.9% 250 ML 250 MG IV (23:29)
[2023-03-18] VITALS (19 sets, daily range): BP systolic 117–158; BP diastolic 63–83; PULSE 68–92; RESP 16–21; TEMP 36.3–36.9; O2SAT 90–96
[2023-03-18] MEDS: ipratropium-albuterol 3 mL Neb INHALATION ×6 (00:28→20:35)
--- NOTE | 2023-03-18 00:55 | PC.NURSE ---
at 0024 PTT was 59; no change to infusion rate at this time. Future order for PTT placed for 629
[2023-03-18] MEDS: pantoprazole 40 mg SDV IVP (01:22)
[2023-03-18 06:30] LABS: Basophils % 0.3 %; Eosinophils # 0.1 10^3/uL (0.0-0.8); Eosinophils % 0.8 %; Hematocrit 36.2 % (36-47); Lymphocytes # 0.6 10^3/uL (0.8-4.8); Lymphocytes % 5.7 %; Mean Corpuscular HGB Conc 33.1 g/dL (30-55); Mean Corpuscular Hemoglobin 29.1 pg (27-33); Mean Corpuscular Volume 87.9 fl (85-98); Mean Platelet Volume 11.2 fL (7.4-10.4); Monocytes # 0.9 10^3/uL (0.2-0.9); Monocytes % 8.4 %; Neutrophils # 8.86 10^3/uL (1.8-7.7); Neutrophils % 83.5 %; Nucleated Red Blood Cells % 0 %; Platelet Count 292 10^3/cmm (157-399); Red Blood Count 4.12 10^6/uL (3.85-5.65); Red Cell Distribution Width 14.4 % (12.1-15.1)
[2023-03-18 07:00] LABS: Partial Thromboplastin Time 65.2 SECONDS (23.9-36.7)
[2023-03-18 07:13] LABS: Alanine Aminotransferase 48 U/L (0-33); Albumin Level 2.3 g/dL (3.5-5.2); Alkaline Phosphatase 102 U/L (35-105); Anion Gap 12.6 (5-19); Aspartate Amino Transferase 89 U/L (0-32); Blood Urea Nitrogen 26 mg/dL (8-23); Calcium 8.3 mg/dL (8.5-10.5); Carbon Dioxide 27 mmol/L (22-29); Chloride 100 mmol/L (98-107); Globulin 2.4 g/dL (1.3-4.6); Glucose 105 mg/dL (65-115); Osmolality Calculated 287 mOsm/kg (285-295); Potassium 3.6 mmol/L (3.5-5.1); Sodium 136 mmol/L (136-145); Total Bilirubin 0.6 mg/dL (0.15-1.2); Total Protein 4.7 g/dL (6.6-8.7)
[2023-03-18] MEDS: citalopram 20 mg Tablet PO (09:49)
[2023-03-18] MEDS: aspirin 81 mg EC Tablet PO (09:50)
--- NOTE | 2023-03-18 10:14 | US_ITS ---
WS: [id number] ULTRASOUND ABDOMEN LIMITED CLINICAL INFORMATION: transaminitis COMPARISON: None. FINDINGS: Liver Size: Normal. Craniocaudal length: 13.4 cm. Echogenicity: Normal. Surface nodularity: None. Mass (size and location): None. Bile ducts Intrahepatic ducts: Normal. Common bile duct diameter: 0.3 cm. Gallbladder Echogenic tumefactive sludge. Gallstones: None. Gallbladder sludge: Present gallbladder wall thickening: None. Pericholecystic fluid: None. Sonographic Saleh sign: Absent. Pancreas Normal as visualized. Spleen Splenomegaly: None. Craniocaudal length: cm. Right kidney: Normal. Hydronephrosis: None. Size: 9.4 cm x 4.8 cm x 4.2 cm. Abdominal aorta and IVC Visualized portions are normal. Ascites: Trace IMPRESSION: 1. Normal liver. 2. No hydronephrosis in the RIGHT kidney. 3. Normal common bile duct. 4. Echogenic sludge within the gallbladder. No gallbladder wall thickening or pericholecystic fluid.
--- NOTE | 2023-03-18 13:14 | PC.SOCIAL ---
IMM Update pg 2 of IMM updated and reviewed w/ patients . Copy provided and Copy dated, initialed and signed and witnessed and placed in chart.
--- NOTE | 2023-03-18 15:22 | PM.PN ---
Subjective Subjective: No acute interim events. Patient was out of bed in chair today. Reports no new complaints. Medications: Reviewed: Yes Vitals/I&O/Wt Last Vital Signs Temp 98.5 F 03/18/23 12:00 Pulse 77 03/18/23 15:10 Resp 21 H 03/18/23 12:00 BP 158/83 03/18/23 12:00 Pulse Ox 92 03/18/23 12:00 O2 Del Method Nasal Cannula 03/18/23 12:00 O2 Flow Rate 3 03/18/23 12:00 03/18/23 03/18/23 03/18/23 06:59 14:59 22:59 Intake Total 300 / 710.258 452.925 / 452.925 Balance 300 / 610.258 452.925 / 452.925 Physical Exam Narrative: General: No acute distress, AO x3, chronically ill-appearing frail elderly lady HEENT: PERRLA, pupils bilaterally equal and reactive, pallors not present Chest: Normal vesicular breath sounds, no added sounds, equal good air entry bilaterally CVS: S1-S2 regular, no murmurs, no tachycardia, no gallops, no rubs Abdomen: Soft, nontender, no organomegaly, bowel sounds present Neuro: No focal deficits, no facial deformity, AO x3 Data 03/18/23 06:21 03/18/23 06:21 Micro: Microbiology 03/15/23 21:19 Urine Culture - Final Urine,Clean Catch Escherichia coli A&P Assessment and plan (1) Acute encephalopathy: (2) Bilateral pulmonary embolism: (3) NSTEMI (non-ST elevated myocardial infarction): (4) JAMES (acute kidney injury): (5) Transaminitis: (6) Acute hypoxic respiratory failure: (7) Acute cystitis: (8) Hyponatremia: (9) Protein calorie malnutrition: (10) Physical deconditioning: (11) Aspiration pneumonia: Plan Acute encephalopathy - this is resolved, patient is currently at baseline mentation, oriented x3 though extremely fatigued. Acute hypoxic respiratory failure -Secondary to bilateral pulmonary emboli -Possible aspiration pneumonia -During her prior hospitalization her Xarelto was stopped after having been continued for several years for what appears to be a DVT. Unknown if it was a provoked or an unprovoked DVT in the past. Given that she has had a PE shortly after being taken off of Xarelto, may have underlying procoagulant state, will likely need long-term anticoagulation going forward. currently on a dysphagia diet #Bilateral pulmonary embolism Currently on treatment with heparin infusion Discontinue heparin drip today, transition to Eliquis 10 mg p.o. twice daily Supplemental O2 to keep saturation greater than 92%. Echocardiogram showing LVEF 65%, no diagnostic regional wall motion abnormalities, normal right ventricular size and function. UTI: Urine culture today with E. coli, diamond susceptible, continue ceftriaxone Hyponatremia,improving Transmainitis: check RUQ us JAMES secondary dehydration, improving Protein calorie malnutrition, physical deconditioning PT OT, speech therapy, dietary eval Disposition: Patient's elderly states he is unable to care for patient at home in her current state of deconditioning. Case management consulted for appropriate disposition planning. PT / OT assessment For now full code Eliquis will suffice for DVT prophylaxis Attestations Medical Necessity Statement*: Transition heparin drip to Eliquis today, appropriate disposition planning ongoing Coding Level of Care Code Acute Code for [facility] Fwd Diagnoses Acute encephalopathy G93.40 Bilateral pulmonary embolism I26.99 NSTEMI (non-ST elevated myocardial infarction) I21.4 JAMES (acute kidney injury) N17.9 Transaminitis R74.01 Acute hypoxic respiratory failure J96.01 Acute cystitis N30.00 Hyponatremia E87.1 Protein calorie malnutrition E46 Physical deconditioning R53.81 Aspiration pneumonia J69.0
[2023-03-18] MEDS: apixaban 5 mg Tablet 10 MG PO (20:44)
[2023-03-18] MEDS: atorvastatin 40 mg Tablet PO (20:44)
[2023-03-18] MEDS: donepezil 5 MG Tablet 10 MG PO (20:44)
[2023-03-18] MEDS: cefTRIAXone 1,000 MG in sodium chloride 0.9% (plus) 50 ML 100 MG IV (22:03)
[2023-03-18] MEDS: azithromycin 500 MG in sodium chloride 0.9% 250 ML 250 MG IV (22:32)
[2023-03-19] VITALS (8 sets, daily range): BP systolic 147–157; BP diastolic 83–84; PULSE 73–88; RESP 16–18; TEMP 36.4–36.5; O2SAT 91–96
[2023-03-19] MEDS: pantoprazole 40 mg SDV IVP (01:09)
[2023-03-19] MEDS: ipratropium-albuterol 3 mL Neb INHALATION ×3 (03:36→11:10)
--- NOTE | 2023-03-19 08:29 | PC.NURSE ---
Pt refused bed bath.
--- NOTE | 2023-03-19 09:41 | PM.DCS ---
Discharge Providers Date of Admission: 03/15/23 22:42 Date of Discharge: March 19, 2023 Attending Provider at Admission: Qamar Guiterrez MD Attending Provider at Discharge: Leonora Camp MD Diagnoses at Discharge Discharge Diagnosis (1) Acute encephalopathy: Status: Acute (2) Bilateral pulmonary embolism: Status: Acute (3) NSTEMI (non-ST elevated myocardial infarction): Status: Acute (4) JAMES (acute kidney injury): Status: Acute (5) Transaminitis: Status: Acute (6) Acute hypoxic respiratory failure: Status: Acute (7) Acute cystitis: Status: Acute (8) Hyponatremia: Status: Acute (9) Protein calorie malnutrition: Status: Acute (10) Physical deconditioning: Status: Acute (11) Aspiration pneumonia: Status: Acute Reason for Visit Reason for Visit: AMS Brief History: Maria Alejandra Zayas is a 88 year old female with a past medical history of lacunar stroke, history of DVT on Xarelto, history of atrial septal aneurysm, recently was discharged for acute CVA, with evidence of cerebral atrophy, who presents to [facility] due to altered mental status, with shortness of breath. Hospital course as below: Hospital Course Hospital Course # Acute encephalopathy - this is resolved, patient is currently at baseline mentation, oriented x3 though extremely fatigued. # Acute hypoxic respiratory failure -Secondary to bilateral pulmonary emboli -Possible aspiration pneumonia -During her prior hospitalization her Xarelto was stopped after having been continued for several years for what appears to be a DVT.? Unknown if it was a provoked or an unprovoked DVT in the past. Given that she has had a PE shortly after being taken off of Xarelto, may have underlying procoagulant state, will likely need long-term anticoagulation going forward.? # possible aspiration currently on a dysphagia 6 diet Evaluated by speech therapy- tolerating modified diet well #Bilateral pulmonary embolism Currently on treatment with heparin infusion Discontinue heparin drip today, transition to Eliquis 10 mg p.o. twice daily for 7 days, then reduce dose to 5mg BID going forward Supplemental O2 to keep saturation greater than 92% Echocardiogram showing LVEF 65%, no diagnostic regional wall motion abnormalities, normal right ventricular size and function UTI: Urine culture today with E. coli, diamond susceptible, treated with ceftriaxone, switch to cefuroxime at discharge Hyponatremia, now resolved Transmainitis: RUQ us with normal liver, no hydronephrosis , no cholecystitis JAMES secondary dehydration, improving Protein calorie malnutrition, physical deconditioning PT OT, speech therapy, dietary eval Disposition: Patient's elderly states he is unable to care for patient at home in her current state of deconditioning.? Transition to SNF Physical Exam Narrative: General: No acute distress, AO x3, fatigied, deconditioned HEENT: PERRLA, pupils bilaterally equal and reactive, pallors not present Chest: Normal vesicular breath sounds, no added sounds, equal good air entry bilaterally CVS: S1-S2 regular, no murmurs, no tachycardia, no gallops, no rubs Abdomen: Soft, nontender, no organomegaly, bowel sounds present Neuro: No focal deficits, no facial deformity, AO x3, power 5/5 in all limbs Discharge Data Studies Completed and Pending Completed Studies During Hospitalization Category Date Time Status CTA chest [CT angio chest PE protcl [id number]] Routine Cat Scan 03/15/23 23:06 Completed XR chest 1V portable [id number] Stat Exams 03/15/23 20:53 [place] [id number] Routine Ultrasound 03/16/23 00:09 Completed CV. echo limited [id number] Routine Ultrasound 03/16/23 00:09 [place] liver [id number] Routine Ultrasound 03/18/23 10:14 Completed Pending at discharge Category Date Time Status Blood Culture Stat Lab 03/15/23 22:02 Results COVID [SARS Covid-2 Antigen] Routine Lab 03/19/23 08:38 Uncollected Radiology Impressions Chest X-Ray 03/15/23 20:53 IMPRESSION: 1. Very large hiatal hernia noted, unchanged. 2. Bibasilar compressive atelectasis. No consolidative pulmonary infiltrate noted. 3. There is no interval change from the prior examination. Chest CTA 03/15/23 23:06 IMPRESSION: 1. Bilateral acute pulmonary emboli, right worse than left. 2. Mild cardiomegaly. RV/LV ratio is 0.9. 3. Very large hiatal hernia noted. 4. Compressive atelectasis in the bilateral lower lobe secondary to the hiatal hernia. Small bilateral pleural effusions are also noted. 5. Ascites noted in the upper abdomen. ADDENDUM: 03/16/23 0007 THIS REPORT CONTAINS FINDINGS MAY BE CRITICAL TO PATIENT CARE. The findings were verbally communicated via telephone conference call with PABLO Robbins at 12:06 AM CDT on 03/15/2023. The findings were acknowledged and understood. Laboratory Results WBC 10.60 10^3/uL (3.29-11.43) 03/18/23 06:21 RBC 4.12 10^6/uL (3.85-5.65) 03/18/23 06:21 Hgb 12.00 g/dL (11.27-16.99) 03/18/23 06:21 Hct 36.2 % (36-47) 03/18/23 06:21 MCV 87.9 fl (85-98) 03/18/23 06:21 MCH 29.1 pg (27-33) 03/18/23 06:21 MCHC 33.1 g/dL (30-55) 03/18/23 06:21 RDW 14.4 % (12.1-15.1) 03/18/23 06:21 Plt Count 292 10^3/cmm (157-399) 03/18/23 06:21 MPV 11.2 fL (7.4-10.4) H 03/18/23 06:21 Neut % (Auto) 83.5 % 03/18/23 06:21 Lymph % (Auto) 5.7 % 03/18/23 06:21 [place] % (Auto) 8.4 % 03/18/23 06:21 Eos % (Auto) 0.8 % 03/18/23 06:21 Baso % (Auto) 0.3 % 03/18/23 06:21 Neut # (Auto) 8.86 10^3/uL (1.8-7.7) H 03/18/23 06:21 Lymph # (Auto) 0.6 10^3/uL (0.8-4.8) L 03/18/23 06:21 [place] # (Auto) 0.9 10^3/uL (0.2-0.9) 03/18/23 06:21 Eos # (Auto) 0.1 10^3/uL (0.0-0.8) 03/18/23 06:21 Baso # (Auto) 0.0 10^3/uL (0.0-0.1) 03/18/23 06:21 Nucleated RBC % (auto) 0 % 03/18/23 06:21 Nucleated RBCs # 0.0 /100WBC 03/18/23 06:21 APTT 65.2 SECONDS (23.9-36.7) H 03/18/23 06:21 D-Dimer >= 20.00 ug/mLFEU (0-0.59) H 03/15/23 21:00 Specimen Type Arterial 03/15/23 21:32 Sample Site Radial, right 03/15/23 21:32 ABG pH 7.44 (7.35-7.45) 03/15/23 21:32 ABG pCO2 45.8 mmHg (35-45) H 03/15/23 21:32 ABG pO2 66.7 mmHg (80.0-100.0) L 03/15/23 21:32 ABG HCO3 31.2 mmol/L (22-26) H 03/15/23 21:32 ABG Base Excess 6.1 mmol/L (-2.0-2.0) H 03/15/23 21:32 Rock Test Pos 03/15/23 21:32 Hematocrit 38.9 % (37-47) 03/15/23 21:32 O2 Delivery Device Nc 03/15/23 21:32 O2 Liters/Min 6.0 % 03/15/23 21:32 Upholstery Instructor ID [email or web address] 03/15/23 21:32 Sodium 136 mmol/L (136-145) 03/18/23 06:21 Potassium 3.6 mmol/L (3.5-5.1) 03/18/23 06:21 Chloride 100 mmol/L (98-107) 03/18/23 06:21 Carbon Dioxide 27 mmol/L (22-29) 03/18/23 06:21 Anion Gap 12.6 (5-19) 03/18/23 06:21 BUN 26 mg/dL (8-23) H 03/18/23 06:21 Creatinine 0.9 mg/dL (0.5-0.9) 03/18/23 06:21 GFR Calculation Not Reportable 03/18/23 06:21 Glucose 105 mg/dL (65-115) 03/18/23 06:21 Calculated Osmolality 287 mOsm/kg (285-295) 03/18/23 06:21 Lactic Acid 1.9 mmol/L (0.5-2.2) 03/16/23 01:43 Calcium 8.3 mg/dL (8.5-10.5) L 03/18/23 06:21 Phosphorus 2.4 mg/dL (2.5-4.5) L 03/17/23 03:49 Magnesium 2.2 mg/dL (1.7-2.3) 03/17/23 03:49 Total Bilirubin 0.6 mg/dL (0.15-1.2) 03/18/23 06:21 AST 89 U/L (0-32) H 03/18/23 06:21 ALT 48 U/L (0-33) H 03/18/23 06:21 Alkaline Phosphatase 102 U/L (35-105) 03/18/23 06:21 Ammonia 31 umol/L (11-51) 03/15/23 21:07 Troponin T Baseline 21 ng/L (0-10) H 03/15/23 21:09 Troponin T 120 Minute 20.97 ng/L (0-10) H 03/15/23 22:45 Delta Troponin T -0.03 ABS# (0-10) L 03/15/23 22:45 Troponin T Hi Sens 6Hr 25.03 ng/L (0-10) H 03/16/23 02:40 Troponin T Hi Sens 6Hr Delta 4.03 ng/L (0-12) 03/16/23 02:40 NT-Pro-B Natriuret Pep 570 pg/mL (0-450) H 03/15/23 21:09 Total Protein 4.7 g/dL (6.6-8.7) L 03/18/23 06:21 Albumin 2.3 g/dL (3.5-5.2) L 03/18/23 06:21 Globulin 2.4 g/dL (1.3-4.6) 03/18/23 06:21 Procalcitonin 1.22 ng/mL (0-0.5) H 03/15/23 21:09 TSH 1.31 uIU/mL (0.27-4.20) 03/15/23 21:09 Urine Color Light yellow (Yellow) 03/15/23 21:19 Urine Appearance Sl hazy (CLEAR) A 03/15/23 21:19 Urine pH 5 (5-7) 03/15/23 21:19 Ur Specific [place] 1.025 (1.005-1.030) 03/15/23 21:19 Urine Protein 1+ (Negative) H 03/15/23 21:19 Urine Glucose (UA) Norm (Normal) 03/15/23 21:19 Urine Ketones Negative (Negative) 03/15/23 21:19 Urine Blood 2+ (Negative) H 03/15/23 21:19 Urine Nitrate Negative (Negative) 03/15/23 21:19 Urine Bilirubin Neg (Negative) 03/15/23 21:19 Urine Urobilinogen 1 mg/dL (Negative) H 03/15/23 21:19 Ur Leukocyte Esterase 2+ (Negative) H 03/15/23 21:19 Urine RBC 5-10 /hpf (0-2) H 03/15/23 21:19 Urine WBC 15-25 /hpf (0-5) H 03/15/23 21:19 Ur Squamous Epith Cells None /hpf (0-5) 03/15/23 21:19 Ur Transition Epith Cell 5-10 /hpf 03/15/23 21:19 Amorphous Sediment 1+ /hpf 03/15/23 21:19 Urine Bacteria 4+ /hpf (NONE) H 03/15/23 21:19 Coarse Granular Casts 0-4 /lpf H 03/15/23 21:19 Urine Mucus 2+ /hpf 03/15/23 21:19 SARS-CoV-2 Ag (Rapid) negative (Negative) 03/15/23 21:07 Vitals Last Vital Signs Temp 97.6 F 03/19/23 08:00 Pulse 86 03/19/23 08:00 Resp 16 03/19/23 08:00 BP 147/84 03/19/23 08:00 Pulse Ox 96 03/19/23 08:03 O2 Del Method Nasal Cannula 03/19/23 08:03 O2 Flow Rate 3 03/19/23 08:03 Discharge Plan Discharge Patient Disposition: Xfer SNF Condition: Stable Prescriptions: New atorvastatin 40 mg Tablet 20 mg PO BEDTIME 30 Days Qty: 30 0RF Eliquis 5 mg Tablet See Rx Instructions .ROUTE .COMPLEX Qty: 30 0RF Rx Instructions: take 10mg BID for 6 days, then reduce dose to 5 mg BID cefuroxime axetil 500 mg tablet 500 mg PO BID 3 Days Qty: 6 0RF Continued donepezil 5 mg Tablet 10 mg PO BEDTIME Qty: 30 0RF aspirin 81 mg Tablet,Delayed Release (Dr/Ec) 81 mg PO DAILY Qty: 30 0RF citalopram 20 mg Tablet 20 mg PO DAILY Qty: 30 0RF levetiracetam 100 mg/mL Solution 500 mg PO BID Qty: 60 0RF lisinopril 5 mg tablet 5 mg PO DAILY rosuvastatin 20 mg tablet 20 mg PO DAILY Discharge Orders: Discharge Order (Routine); Ordered 03/19/23 Ordered By: Leonora Camp Referrals: Rosario Jane MD [Physician] - (We have notified your physician's clinic of the need for a follow-up appointment to be scheduled. If you have not heard from them within the next 2 business days, please call them directly. You may also reach out to our manager environmental at [phone] and she can assist you.) Discharge Diet: As Directed Discharge Activity: Resume usual activity Discharge Attestations Time Spent in Discharge Care*: greater than 30 min Quality Metrics Clinical Quality Measures [ Venous Thromboembolism { Contraindication to Overlap Therapy: None; Overlap threrpy ordered; VTE Discharge Education: Education about anticoagulant therapy/Care Notes given; Deep Vein Thrombosis/Pulmonary Embolism Present on Admission: Yes;}] Coding Level of Care Code Acute Code for Chg Fwd Diagnoses Acute encephalopathy G93.40 Bilateral pulmonary embolism I26.99 NSTEMI (non-ST elevated myocardial infarction) I21.4 JAMES (acute kidney injury) N17.9 Transaminitis R74.01 Acute hypoxic respiratory failure J96.01 Acute cystitis N30.00 Hyponatremia E87.1 Protein calorie malnutrition E46 Physical deconditioning R53.81 Aspiration pneumonia J69.0
[2023-03-19] MEDS: apixaban 5 mg Tablet 10 MG PO (10:46)
[2023-03-19] MEDS: citalopram 20 mg Tablet PO (10:46)
[2023-03-19] MEDS: aspirin 81 mg EC Tablet PO (10:46)
[2023-03-19 11:11] LABS: SARS Covid-2 Antigen negative (Negative)
== END 2023-03-19 15:38 | disposition skilled nursing facility (03) | DRG 175 ==
LOC: ER 21:32 → MEDSURG 22:42
PROVIDERS: Admitting Provider Family Medicine; Emergency Provider Emergency Medicine; Visit Provider Student in an Organized Health Care Education/Training Program
DX: I26.99 Other pulmonary embolism without acute cor pulmonale (principal); J69.0 Pneumonitis due to inhalation of food and vomit; J96.01 Acute respiratory failure with hypoxia; N39.0 Urinary tract infection, site not specified; G93.40 Encephalopathy, unspecified; E87.1 Hypo-osmolality and hyponatremia; N17.9 Acute kidney failure, unspecified; E46 Unspecified protein-calorie malnutrition; B96.20 Unspecified Escherichia coli [E. coli] as the cause of diseases classified elsewhere; Z11.52 Encounter for screening for COVID-19; Z86.73 Personal history of transient ischemic attack (TIA), and cerebral infarction without residual deficits; Z86.718 Personal history of other venous thrombosis and embolism; Z79.01 Long term (current) use of anticoagulants; E86.0 Dehydration; Z68.23 Body mass index [BMI] 23.0-23.9, adult; Z79.82 Long term (current) use of aspirin; F03.90 Unspecified dementia, unspecified severity, without behavioral disturbance, psychotic disturbance, mood disturbance, and anxiety; I10 Essential (primary) hypertension; Z86.711 Personal history of pulmonary embolism
CPT/HCPCS: 36415; 36600; 71045; 71275; 76705; 80048; 80053; 81001; 82140; 82803; 83605; 83735; 83880; 84100; 84145; 84443; 84484; 85025; 85049; 85378; 85730; 87040; 87077; 87086; 87186; 87426; 92523; 92610; 93005; 93308; 93970; 94640; 94664; 96365; 96367; 97116; 97161; 97165; 97530; 97535; 99285; C9113; J0456; J0696; J1644; J7030; J7050; Q9967

== ENCOUNTER 2024-09-19 10:57 | Inpatient (IN) | payer MEDICARE, SELFPAY ==
[2024-09-19] VITALS (12 sets, daily range): BP systolic 158–178; BP diastolic 69–87; PULSE 80–86; RESP 14–28; TEMP 36.5–37.3; O2SAT 81–96; BMI 20.9
--- NOTE | 2024-09-19 11:07 | XR_ITS ---
WS: [email or web address] Exam: XR chest 1V portable [id number] Date/Time of Exam: 09/19/2024 11:08 AM Reason For Exam: fall Comparison 03/15/2023. Lungs are fully expanded and clear. There is fibrous scarring in the mid RIGHT lung. Large hiatal hernia. Heart size top limits normal. No pleural effusion. Chronic interstitial changes and scattered calcified granulomas. Bony structures are unremarkable. XR/XR chest 1V portable [id number] IMPRESSION: 1. No acute cardiopulmonary finding. 2. Chronic pulmonary changes and large hiatal hernia.
--- NOTE | 2024-09-19 11:07 | XR_ITS ---
WS: [email or web address] Exam: XR hip LT 2-3V wo/w pel* [id number] Date/Time of Exam: 09/19/2024 11:08 AM Reason For Exam: fall Questionable incomplete subcapital fracture along the lateral margin of the femoral neck. This is only seen on the AP view. No other sign of fracture. Osteopenia. Mild to moderate DJD of the joint compartment. Normal soft tissues. XR/XR hip LT 2-3V wo/w pel* [id number] IMPRESSION: 1. Questionable incomplete subcapital fracture along the lateral margin of the femoral neck. Consider CT for further work-up.
--- NOTE | 2024-09-19 11:07 | CT_ITS ---
WS: [id number] CT HEAD TECHNIQUE: Noncontrast CT of the head obtained from the skullbase to the vertex. CLINICAL INFORMATION: fall COMPARISON: 03/11/2023 DLP: 1041.[address] scans at [facility] use at least one of these dose optimization techniques: automated exposure control; mA and/or kV adjustment per patient size (includes targeted exams where dose is matched to clinical indication); or iterative reconstruction. FINDINGS: No evidence of intracranial hemorrhage or mass effect. Ventricular system and basal cisterns are patent. Advanced small vessel changes with moderate parenchymal volume loss. No extra-axial fluid collections. No evidence of mass or mass effect. Small chronic lacunar infarcts in the LEFT caudate and RIGHT cerebellum similar to previous. Vascular calcification. Mild mucosal thickening in the RIGHT paranasal sinuses mastoid air cells are well aerated. A few secretions in the sphenoid sinus. CT/CT head wo con* [id number] IMPRESSION: 1. No evidence of intracranial hemorrhage or mass effect. 2. Advanced small vessel changes with moderate parenchymal volume loss. 3. No acute intracranial findings.
--- NOTE | 2024-09-19 11:08 | ED_ITS ---
HPI - General Adult 2 General: Chief complaint: General Medical Stated complaint: white poop Time Seen by Provider: 09/19/24 11:01 Source: EMS Mode of arrival: EMS Limitations: altered mental status History of Present Illness: 89-year-old female is here from retirement she has a history of dementia. Per retirement she had a fall yesterday since since complained of some left leg pain and is had some increased confusion from her baseline. Here she is denying any pain but is quite confused she is able to tell me her name but not really able answer any other questions. They states that she has had some white poop as well no blood in her poop no fever. Related Data Home Medications ?Medication ?Instructions ?Recorded ?Confirmed bisacodyl 10 mg rectal suppository 10 mg MT DAILY PRN Constipation 09/19/24 09/19/24 citalopram 10 mg tablet 10 mg PO DAILY 09/19/2402/05 levetiracetam 500 mg tablet 500 mg PO BID 09/19/2402/05 magnesium citrate 296 ml PO DAILY PRN Constipa tion 09/19/24 09/19/24 magnesium hydroxide 400 mg/5 mL 30 ml PO DAILY PRN Con stipation 09/19/24 09/19/24 oral suspension (Milk of Magnesia) polyethylene glycol 3350 17 17 g PO DAILY 09/19/2402/05 gram/dose oral powder sodium phosphates 19 gram-7 118 ml MT DAILY PRN Consti pation 09/19/24 09/19/24 gram/118 mL enema (Fleet Enema) Previous Rx's ?Medication ?Instructions ?Recorded famotidine 20 mg tablet 20 mg PO DAILY #90 tabs 12/12 02/04 Allergies Allergy/AdvReac Type Severity Reaction Status Date / Time Penicillins Allergy Mild rash Verified 09/19/24 11:08 Review of Systems 2 General: Reports: ROS unobtainable due to mental status PFSH ED 2 PFSH: Medical History Encounter for medication review Aspiration pneumonia Physical deconditioning Protein calorie malnutrition Hyponatremia Transaminitis NSTEMI (non-ST elevated myocardial infarction) Bilateral pulmonary embolism Acute on chronic alteration in mental status Abnormal MRI of head History of CVA (cerebrovascular accident) without residual deficits Atrial septal aneurysm CVA (cerebral vascular accident) Hypoxia Anticoagulated by anticoagulation treatment Dementia Essential hypertension History of CVA (cerebrovascular accident) History of DVT (deep vein thrombosis) Hyperlipemia History of pulmonary embolism History of TIA (transient ischemic attack) Vitamin D deficiency Surgical History History of appendectomy Family History Mother DVT (deep venous thrombosis) Polymyositis Social History Smoking and tobacco/nicotine status: former use of tobacco/nicotine Second hand smoke exposure: No Alcohol intake: never Substance/Drug Use: never Physical Exam 2 Const: COMMON NORMALS: alert; negative for patient oriented x3 EXAM LIMITATIONS: altered mental status O RIENTATION/CONSCIOUSNESS: Yes oriented to person; not oriented to place and not oriented to time HENMT: COMMON NORMALS: normocephalic and atraumatic HEAD & SCALP: n ormocephalic and atraumatic Eye: COMMON NORMALS: Equal, round and reactive pupils present and EOMs intact bilaterally PUPIL: Yes Equal, round and reactive pupils present Neck/C-Spine: COMMON NORMALS: full ROM and supple Chest: COMMONS NORMALS: normal inspection of the chest and normal palpation of entire chest wall Resp: COMMON NORMALS: normal respiratory effort, No retractions, No use of accessory muscles and clear to auscultation bilaterally AUSCULTATION: clear to auscultation bilaterally Cardio: COMMON NORMALS: regular rate, regular rhythm and No murmurs present (Cardio) RATE: regular rate RHYTHM: regular rhythm GI: COMMON NORMALS: Normal to inspection, nondistended, normoactive bowel sounds present, Soft to palpation, non-tender and no masses PALPATION: Yes Soft to palpation Extremity: COMMON NORMALS: normal to inspection and full ROM Neuro: COMMON NORMALS: moves all extremities and no focal motor deficits; negative for patient oriented x3 SENSORIUM/ORIENTATION: Yes alert, Yes oriented to person, No oriented to place and No oriented to time Psych: COMMON NORMALS: negative for mental status grossly normal Skin: COMMON NORMALS: no rashes or lesions noted and no wounds GENERAL SKIN EXAM: no rashes or lesions noted Course 2 Vital Signs: Vital signs: Vital Signs Temperature 98.6 F 04/08/25 11:04 Pulse Rate 80 09/19/24 11:04 Blood Pressure 175/87 09/19/24 11:04 Pulse Oximetry 93 09/19/24 11:04 Oxygen Delivery Me thod Room Air 09/19/24 11:04 MDM - General Adult Medical Decision Making Patient presents here with hip fracture from a fall other imaging is normal did speak to orthopedist and hospitalist will admit Medical Records I reviewed the patient's medical records. Lab Data I reviewed the patient's lab results. 09/19/24 11:20 09/19/24 11:20 Radiology Impressions Chest X-Ray 09/19/24 11:07 IMPRESSION: 1. No acute cardiopulmonary finding. 2. Chronic pulmonary changes and large hiatal hernia. Head CT 09/19/24 11:07 IMPRESSION: 1. No evidence of intracranial hemorrhage or mass effect. 2. Advanced small vessel changes with moderate parenchymal volume loss. 3. No acute intracranial findings. Hip/Pelvis X-Ray 09/19/24 11:07 IMPRESSION: 1. Questionable incomplete subcapital fracture along the lateral margin of the femoral neck. Consider CT for further work-up. Hip CT 09/19/24 11:49 IMPRESSION: Small nondisplaced incomplete subcapital fracture lateral LEFT femoral neck with cortical step-off and slight impaction. Laboratory Results WBC 13.50 10^3/uL (3.29-11.43) H 09/19/24 11:20 RBC 4.62 10^6/uL (3.85-5.65) 09/19/24 11:20 Hgb 10.70 g/dL (11.27-16.99) L 09/19/24 11:20 Hct 36.4 % (36-47) 09/19/24 11:20 MCV 78.8 fl (85-98) L 09/19/24 11:20 MCH 23.2 pg (27-33) L 09/19/24 11:20 MCHC 29.4 g/dL (30-55) L 09/19/24 11:20 RDW 16.4 % (12.1-15.1) H 09/19/24 11:20 Plt Count 323 10^3/cmm (157-399) 09/19/24 11:20 MPV 9.5 fL (7.4-10.4) 09/19/24 11:20 Neut % (Auto) 83.0 % 09/19/24 11:20 Lymph % (Auto) 4.9 % 09/19/24 11:20 [place] % (Auto) 11.2 % 09/19/24 11:20 Eos % (Auto) 0.2 % 09/19/24 11:20 Baso % (Auto) 0.2 % 09/19/24 11:20 Neut # (Auto) 11.20 10^3/uL (1.8-7.7) H 09/19/24 11:20 Lymph # (Auto) 0.7 10^3/uL (0.8-4.8) L 09/19/24 11:20 [place] # (Auto) 1.5 10^3/uL (0.2-0.9) H 09/19/24 11:20 Eos # (Auto) 0.0 10^3/uL (0.0-0.8) 09/19/24 11:20 Baso # (Auto) 0.0 10^3/uL (0.0-0.1) 09/19/24 11:20 Nucleated RBC % (auto) 0 % 09/19/24 11:20 Nucleated RBCs # 0.0 /100WBC 09/19/24 11:20 PT 14.80 SECONDS (12.1-14.9) 09/19/24 11:20 INR 1.09 (0.8-1.2) 09/19/24 11:20 Sodium 134 mmol/L (136-145) L 09/19/24 11:20 Potassium 4.0 mmol/L (3.5-5.1) 09/19/24 11:20 Chloride 97 mmol/L (98-107) L 09/19/24 11:20 Carbon Dioxide 26 mmol/L (22-29) 09/19/24 11:20 Anion Gap 15.0 (5-19) 09/19/24 11:20 BUN 11 mg/dL (8-23) 09/19/24 11:20 Creatinine 0.6 mg/dL (0.5-0.9) 09/19/24 11:20 GFR Calculation Not Reportable 09/19/24 11:20 Glucose 104 mg/dL (65-115) 09/19/24 11:20 Calculated Osmolality 278 mOsm/kg (285-295) L 09/19/24 11:20 Calcium 9.6 mg/dL (8.5-10.5) 09/19/24 11:20 Total Bilirubin 0.7 mg/dL (0.15-1.2) 09/19/24 11:20 AST 14 U/L (0-32) 09/19/24 11:20 ALT 8 U/L (0-33) 09/19/24 11:20 Alkaline Phosphatase 99 U/L (35-105) 09/19/24 11:20 Total Protein 7.5 g/dL (6.6-8.7) 09/19/24 11:20 Albumin 3.8 g/dL (3.5-5.2) 09/19/24 11:20 Globulin 3.7 g/dL (1.3-4.6) 09/19/24 11:20 Lipase 18 U/L (13-60) 09/19/24 11:20 All radiology interpretation(s) finalized by discharge Discharge Plan Discharge Patient Disposition: Admitted As Inpatient Clinical Impression: Closed fracture of left hip Condition: Stable Coding Level of Care Code ED Client Relationship Executive for Sohan Rivera
--- NOTE | 2024-09-19 11:26 | PC.PHAR ---
patient is from formerly [facility]
[2024-09-19 11:36] LABS: Basophils % 0.2 %; Eosinophils % 0.2 %; Hematocrit 36.4 % (36-47); Lymphocytes # 0.7 10^3/uL (0.8-4.8); Lymphocytes % 4.9 %; Mean Corpuscular HGB Conc 29.4 g/dL (30-55); Mean Corpuscular Hemoglobin 23.2 pg (27-33); Mean Corpuscular Volume 78.8 fl (85-98); Mean Platelet Volume 9.5 fL (7.4-10.4); Monocytes # 1.5 10^3/uL (0.2-0.9); Monocytes % 11.2 %; Nucleated Red Blood Cells % 0 %; Platelet Count 323 10^3/cmm (157-399); Red Blood Count 4.62 10^6/uL (3.85-5.65); Red Cell Distribution Width 16.4 % (12.1-15.1)
[2024-09-19 11:47] LABS: INR 1.09 (0.8-1.2)
--- NOTE | 2024-09-19 11:49 | CT_ITS ---
WS: [id number] Noncontrast CT LEFT hip TECHNIQUE: Noncontrast CT LEFT hip with coronal and sagittal reformatted images. CLINICAL INFORMATION: fall COMPARISON: Radiograph earlier today DLP: 231.[address] scans at [facility] use at least one of these dose optimization techniques: automated exposure control; mA and/or kV adjustment per patient size (includes targeted exams where dose is matched to clinical indication); or iterative reconstruction. FINDINGS: Small nondisplaced incomplete subcapital fracture lateral LEFT femoral neck with cortical step-off and slight impaction. No other acute fractures. Normal pubic rami. 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 Urine distended bladder. Normal visualized LEFT pubic rami. Small fat-containing LEFT inguinal hernia. Calcified uterine fibroid. Sigmoid diverticulosis. CT/CT hip LT wo con* [id number] IMPRESSION: Small nondisplaced incomplete subcapital fracture lateral LEFT femoral neck wi th cortical step-off and slight impaction.
[2024-09-19 12:04] LABS: Alanine Aminotransferase 8 U/L (0-33); Albumin Level 3.8 g/dL (3.5-5.2); Alkaline Phosphatase 99 U/L (35-105); Aspartate Amino Transferase 14 U/L (0-32); Blood Urea Nitrogen 11 mg/dL (8-23); Calcium 9.6 mg/dL (8.5-10.5); Carbon Dioxide 26 mmol/L (22-29); Chloride 97 mmol/L (98-107); Globulin 3.7 g/dL (1.3-4.6); Glucose 104 mg/dL (65-115); Lipase 18 U/L (13-60); Osmolality Calculated 278 mOsm/kg (285-295); Sodium 134 mmol/L (136-145); Total Bilirubin 0.7 mg/dL (0.15-1.2); Total Protein 7.5 g/dL (6.6-8.7)
--- NOTE | 2024-09-19 14:29 | P.HP_ITS ---
Providers/Chief Complaint 2 Admitting Physician: Haydee Carrillo MD Primary Care Provider: Mya Cole MD Chief Complaint: white poop History of Present Illness Maria Alejandra Zayas is a 89 year old female with a past medical history of lacunar stroke, history of DVT on Xarelto, history of atrial septal aneurysm, and history of stroke CVA, with evidence of cerebral atrophy, who who now lives in a residential he is here after a fall and has been diagnosed with hip fracture. She does have a history of bilateral pulmonary embolism and used to be on Xarelto however I do not see that a part of her medications at this point. She last saw her primary care DG meena in November 2023 for Xarelto was still on the medication list. Patient is unable to provide a history at this time. She is altered more than usual as per residential report. Patient denies pain at this time. Knows her name and is oriented to self. She believes she is in [facility]. Unable to give me any more history at this time. As per paperwork from residential she is DNR/DNI. Medications/Allergies Home Medications ?Medication ?Instructions ?Recorded ?Confirmed ?Last Taken ?Type famotidine 20 mg tablet 20 mg PO DAILY #90 tabs 12/1209/19/24 09/19/24 Rx bisacodyl 10 mg rectal suppository 10 mg WV DAILY PRN Constipation 09/19/24 09/19/24 09/19/24 History citalopram 10 mg tablet 10 mg PO DAILY 09/19/24 04/02/0509/19/24 History levetiracetam 500 mg tablet 500 mg PO BID 09/19/2402/0509/19/24 History magnesium citrate 296 ml PO DAILY PRN Constipa tion 09/19/24 09/19/24 Unknown History magnesium hydroxide 400 mg/5 mL 30 ml PO DAILY PRN Con stipation 09/19/24 09/19/24 Unknown History oral suspension (Milk of Magnesia) polyethylene glycol 3350 17 17 g PO DAILY 09/19/2402/0509/18/24 History gram/dose oral powder sodium phosphates 19 gram-7 118 ml WV DAILY PRN Consti pation 09/19/24 09/19/24 Unknown History gram/118 mL enema (Fleet Enema) Allergies Allergy/AdvReac Type Severity Reaction Status Date / Time Penicillins Allergy Mild rash Verified 09/19/24 11:08 PFSH Acute 2 PFSH: Medical History (Updated 09/19/24 @ 22:40 by FLAVIO Sparrow) History of DVT (deep vein thrombosis) Subcapital fracture of left hip Encounter for medication review Aspiration pneumonia Physical deconditioning Protein calorie malnutrition Hyponatremia Transaminitis NSTEMI (non-ST elevated myocardial infarction) Bilateral pulmonary embolism Acute on chronic alteration in mental status Abnormal MRI of head History of CVA (cerebrovascular accident) without residual deficits Atrial septal aneurysm CVA (cerebral vascular accident) Hypoxia Anticoagulated by anticoagulation treatment Dementia Essential hypertension History of CVA (cerebrovascular accident) Hyperlipemia History of pulmonary embolism History of TIA (transient ischemic attack) Vitamin D deficiency Surgical History History of appendectomy Family History Mother DVT (deep venous thrombosis) Polymyositis Social History Smoking and tobacco/nicotine status: former use of tobacco/nicotine Second hand smoke exposure: No Alcohol intake: never Substance/Drug Use: never Vitals/I&O/Wt Last Vital Signs Temp 98.6 F 09/19/24 11:04 Pulse 80 09/19/24 11:04 BP 175/87 09/19/24 11:04 Pulse Ox 93 09/19/24 11:04 O2 Del Method Room Air 09/19/24 11:04 Physical Exam 2 Narrative: General: Alert and oriented to self, confused. Dementia patient. Believes she may be in [facility] in [place]. Thinks that they are 1929. HEENT: Normocephalic, atraumatic, EOMI, breathing room air. Cardio: Regular rate rhythm, normal S1-S2, Respiratory: Clear to auscultation bilaterally no wheezes no rhonchi. GI: Abdomen soft, nontender, nondistended, bowel sounds + Extremities: Mild swelling noted at left hip. Left leg shortened. Urinary Catheter Management: Kelly: Cath Placed During This Visit: yes Urinary Catheter Date of Insertion: 09/19/24 Urinary Catheter Time of Insertion: 14:25 Data 09/20/24 05:01 09/20/24 05:01 A&P Assessment and plan (1) Closed fracture of left hip: (2) Atrial septal aneurysm: (3) History of CVA (cerebrovascular accident) without residual deficits: (4) Hyperlipemia: Qualifiers: Hyperlipidemia type: mixed hyperlipidemia Qualified Code(s): E78.2 - Mixed hyperlipidemia Plan #Left femoral neck fracture #History of pulmonary embolism, used to be on Xarelto #History of seizures, currently on Keppra. #History of CVA #History of atrial septal aneurysm #Dementia #snf resident ? Pain control ? Orthopedic surgery consulted ? Continue DVT prophylaxis with heparin SQ twice daily. Patient is at high risk of PE DVT secondary to history of such. ? As per previous discharge summary. It is indicated that on prior hospitalization Xarelto was stopped after it was continued for several years for what appears to be a DVT however it was unknown if it was provoked or unprovoked in the past. She did have a PE shortly after being taken off of Xarelto therefore long-term anticoagulation was recommended going forward. Last echo is from 2022 LVEF 65% no diagnostic regional wall motion abnormalities. ? Continue Keppra 500 twice daily ? Obtain baseline EKG, chest x-ray ? Patient unable to provide a history however denies chest pain at this time. -Orthopedic surgery consulted. ? Blood pressure elevated most likely secondary to pain. I do not believe she has hypertension. ? Continue to monitor blood pressure. May use hydralazine 5 mg IV every 6-8 hours as needed. ? I do expect her blood pressure to improve after pain medicine. - PT after surgery. She will need DVT prophylaxis after surgery. ? Check urine culture. Leukocytosis most likely reactive however patient does have acute on chronic encephalopathy. Must rule out UTI. Will check urinalysis. Will place on empiric ceftriaxone. DVT prophylaxis: Heparin SQ twice daily PDMP PDMP Reviewed: Not Reviewed Attestations 2 Medical Necessity Statement*: Left femoral neck fracture. Diagnoses Closed fracture of left hip S72.002A Atrial septal aneurysm I25.3 History of CVA (cerebrovascular accident) without residual deficits Z86.73 Mixed hyperlipidemia E78.2 Hyperlipidemia type: mixed hyperlipidemia
--- NOTE | 2024-09-19 15:22 | PC.NURSE ---
Patient has DNR signed in her chart that came with her from [facility]. Dr. Carrillo contacted son to verify code status and son stated he wanted mother to be a DNR, but told us to contact his father. Dr. Carrillo called patient's who also lives at nursing facility and had to leave a message. At this time, patient's code status is AND.
--- NOTE | 2024-09-19 15:47 | ECG_ITS ---
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 Measurements Intervals [place] Rate: 81 P: 75 IL: 119 QRS: 48 QRSD: 94 T: 28 QT: 384 QTc: 446 Interpretive Statements SINUS RHYTHM WITH SHORT [place] INTERVAL NONSPECIFIC T-WAVE ABNORMALITY Compared to ECG 03/16/2023 03:55:33 No significant changes Electronically Signed On 09-19-2024 18:54:02 CDT by Marguerite Oswald M.D. [email or web address] [id number]
[2024-09-19] MEDS: heparin 5,000 unit/mL INJ 1 mL 5000 UNIT SUBCUT (16:45)
[2024-09-19] MEDS: sodium chloride 0.9% 1,000 ML 75 ML IV (16:45)
[2024-09-19 17:53] LABS: Bacteria Urine None Seen /hpf; Hyaline Casts Urine 1.65 /lpf; RBC Urine >100 /hpf (0-2); Squamous Epithelial Cell Urine 0-5 /hpf (0-5)
[2024-09-19 18:10] LABS: Add Urine Microscopic? YES; Bilirubin Urine Neg (Negative); Blood Urine 3+ (Negative); Glucose Urine UA Norm (Normal); Ketones Urine 1+ (Negative); Leukocyte Esterase Urine Trace (Negative); Nitrate Urine Negative (Negative); Protein Urine 1+ (Negative); Specific Gravity, Urine 1.025 (1.005-1.030); Urine Appearance Slightly Cloudy (CLEAR); Urine Color Yellow (Yellow); Urobilinogen Urine Norm (Negative); pH Urine 5 (5-7)
[2024-09-19 18:11] LABS: Add Urine Culture? Yes
[2024-09-19] MEDS: levETIRAcetam 500 mg Tablet PO (18:12)
--- NOTE | 2024-09-19 18:16 | XRR_ITS ---
PROCEDURE INFORMATION: Exam: XR Chest Exam date and time: 09/19/2024 7:42 PM Age: 89 years old Clinical indication: Wheezing TECHNIQUE: Imaging protocol: Radiologic exam of the chest. Views: 1 view. COMPARISON: CR XR chest 1V portable [id number] 09/19/2024 11:19 AM FINDINGS: Lungs: Peribronchial thickening. No consolidation. Pleural spaces: No pleural effusion. No pneumothorax. Heart/Mediastinum: Mild pulmonary vascular congestion. No cardiomegaly. Large hiatal hernia again noted. Bones/joints: Unremarkable. XR/XR chest 1V portable [id number] IMPRESSION: Sequela of bronchitis. Mild pulmonary vascular congestion.
--- NOTE | 2024-09-19 18:19 | PC.NURSE ---
Dr. Carrillo notified of patient wheezing from basis. Patient was fine upon arrival. Dr. Carrillo ordered fluids to be stopped and a chest xray.
--- NOTE | 2024-09-19 18:22 | USCV_ITS ---
Maria Alejandra Zayas Age: 89 Gender: F : 1935 Exam Date: 09/19/2024 20:27 Ordering Phys: Haydee Carrillo MD Technologist: RADHA Exam Location: [facility] [place] [place] Indication: pre-op clearance hip fx BP: 178 / 69 HR: 78 Rhythm: Sinus Technical Quality: Adequate MEASUREMENTS (Male / Female) Normal Values 2D ECHO LV Diastolic Diameter PLAX 2.9 cm 4.2 - 5.9 / 3.9 - 5.3 cm IVS Diastolic Thickness 1.5 cm 0.6 - 1.0 / 0.6 - 0.9 cm IVS Systolic Thickness 1.3 cm LVPW Diastolic Thickness 1.8 cm 0.6 - 1.0 / 0.6 - 0.9 cm LVPW Systolic Thickness 1.8 cm LVOT Diameter 1.8 cm LV Ejection Fraction 2D Teich 57.9 % LV Ejection Fraction MOD 4C 45.5 % LV Ejection Fraction MOD 2C 60.6 % LV Ejection Fraction 2C AL 64.6 % LA Diameter 3.4 cm Aorta at Sinotubular Diameter 2.3 cm IVC Diameter 1.0 cm M-MODE LA Ao Ratio MM 1.1 AV Cusp Separation MM 1.7 cm DOPPLER AV Peak Velocity 146.0 cm/s LVOT Peak Velocity 132.0 cm/s AV Area Cont Eq vti 2.2 cm squared AV Area Cont Eq pk 2.3 cm squared MV Peak Velocity 140.0 cm/s MV Area PHT 3.2 cm squared Mitral E to A Ratio 0.6 TV Peak Velocity 389.0 cm/s TR Peak Velocity 419.0 cm/s TR Peak Gradient 70.2 mmHg TV Peak E Velocity 73.0 cm/s PV Peak Velocity 123.0 cm/s FINDINGS Left Ventricle Normal left ventricular size and systolic function, EF 58%no regional wall motion abnormalities. . Mild left ventricular hypertrophy. Grade I/IV diastolic dysfunction (abnormal relaxation filling pattern), normal to mildly elevated filling pressures. Right Ventricle The right ventricle is normal in size and function. Right Atrium The right atrium is normal in size. Left Atrium Normal left atrial size. Mitral Valve Trace mitral valve regurgitation. Moderate mitral annular calcification. Aortic Valve Trace to mild aortic valve regurgitation. Tricuspid Valve Moderate tricuspid valve regurgitation. Estimated pulmonary artery peak systolic pressure 72 mmHg Pulmonic Valve Pulmonic valve not well visualized. Pericardium Normal pericardium without effusion. Aorta Plaque seen in the ascending aorta. IVC Normal inferior vena cava. CONCLUSIONS Normal left ventricular size and systolic function, EF 58%no regional wall motion abnormalities. . Mild left ventricular hypertrophy. Grade I/IV diastolic dysfunction (abnormal relaxation filling pattern), normal to mildly elevated filling pressures. Trace mitral valve regurgitation. Moderate mitral annular calcification. Trace to mild aortic valve regurgitation. Moderate tricuspid valve regurgitation. Moderate pulmonary hypertension with an estimated pulmonary artery peak systolic pressure of 72 mmHg with a mean pressure of 32 mmHg There is no pericardial effusion. Dr Marguerite Oswald MD FACC (Electronically Signed) Final Date: 20 September 2024 13:22 S
[2024-09-19 19:10] LABS: NT Pro B Type Natriuretic Pept 4493 pg/mL (0-450)
[2024-09-19] MEDS: FUROsemide 10 mg/mL SDV 4mL 40 MG IVP (21:39)
[2024-09-19] MEDS: morphine 4 mg/mL SDV 1 mL 2 MG IVP (21:48)
--- NOTE | 2024-09-19 22:13 | PM.CONSULT ---
Providers/Reason For Consult Consulting Physician/Specialty*: Dr. Evans Price MD - Orthopedic Surgery [facility]. Reason for Consult*: Left femur, nondisplaced subcapital fracture Noted cortical step-off and slight impaction. Attending Physician: Haydee Carrillo MD Primary Care Provider: Mya Cole MD History of Present Illness History of Present Illness Maria Alejandra Zayas is a 89 year old female who presented to the emergency department today via EMS, from [facility] where the patient resides full-time. Patient has a history of dementia and is limited in her ability to respond cohesively and correctly. [facility], the patient fell at the facility on September 18, 2024. Since that fall, the patient had complained of left leg pain and had an altered mental status from baseline. Patient has been nonweightbearing per the facility's report. The patient presented to the emergency department where x-rays were completed and there was a noted possible left femoral neck fracture. CT was later obtained and this is confirmed on CT. [facility] to the medical service for medical optimization and orthopedic services were consulted for further evaluation of the hip fracture. Patient lives full-time at the skilled facility, with her . Per the facility's report, her Noé and daughter Mary Kate are her primary medical authorities. Patient denies any current pain however, when trying to move the left lower extremity, she grimaces and grabs the left thigh. Patient is quite fatigued and confused overall however, she is oriented to self. Not oriented to time or place. Past medical history of stroke, history of DVT on Xarelto, pulmonary embolism, history of atrial septal aneurysm, and history of stroke CVA, with evidence of cerebral atrophy. Patient is unable to provide a more detailed history at this time. Review of Systems General: Reports: ROS unobtainable due to mental status Medications/Allergies Home Medications ?Medication ?Instructions ?Recorded ?Confirmed ?Last Taken ?Type famotidine 20 mg tablet 20 mg PO DAILY #90 tabs 12/30/23 09/19/24 09/19/24 Rx bisacodyl 10 mg rectal suppository 10 mg MA DAILY PRN Constipation 09/19/24 09/19/24 09/19/24 History citalopram 10 mg tablet 10 mg PO DAILY 09/19/24 09/19/24 09/19/24 History levetiracetam 500 mg tablet 500 mg PO BID 09/19/24 09/19/24 09/19/24 History magnesium citrate 296 ml PO DAILY PRN Constipation 09/19/24 09/19/24 Unknown History magnesium hydroxide 400 mg/5 mL 30 ml PO DAILY PRN Constipation 09/19/24 09/19/24 Unknown History oral suspension (Milk of Magnesia) polyethylene glycol 3350 17 17 g PO DAILY 09/19/24 09/19/24 09/18/24 History gram/dose oral powder sodium phosphates 19 gram-7 118 ml MA DAILY PRN Constipation 09/19/24 09/19/24 Unknown History gram/118 mL enema (Fleet Enema) Allergies Allergy/AdvReac Type Severity Reaction Status Date / Time Penicillins Allergy Mild rash Verified 09/19/24 11:08 Current Medications Generic Name Dose Route Start Last Admin Trade Name Freq PRN Reason Stop Dose Admin Furosemide 40 mg 09/19/24 21:15 09/19/24 21:39 Furosemide 10 Mg/Ml Sdv 4ml IVP 40 mg Q24H JANNIE Administration Heparin Sodium (Porcine) 5,000 unit 09/19/24 14:30 09/19/24 16:45 Heparin 5,000 Unit/Ml Inj 1 Ml SUBCUT 5,000 unit Q12H JANNIE Administration Levetiracetam 500 mg 09/19/24 18:00 09/19/24 18:12 Levetiracetam 500 Mg Tablet PO 500 mg BID JANNIE Administration Morphine Sulfate 2 mg 09/19/24 14:29 09/19/24 21:48 Morphine 4 Mg/Ml Sdv 1 Ml IVP 2 mg Q4H PRN Administration SEVERE PAIN PFSH Acute PFSH: Medical History (Updated 09/19/24 @ 22:40 by RAKESH Sparrow-SAMY) History of DVT (deep vein thrombosis) Subcapital fracture of left hip Encounter for medication review Aspiration pneumonia Physical deconditioning Protein calorie malnutrition Hyponatremia Transaminitis NSTEMI (non-ST elevated myocardial infarction) Bilateral pulmonary embolism Acute on chronic alteration in mental status Abnormal MRI of head History of CVA (cerebrovascular accident) without residual deficits Atrial septal aneurysm CVA (cerebral vascular accident) Hypoxia Anticoagulated by anticoagulation treatment Dementia Essential hypertension History of CVA (cerebrovascular accident) Hyperlipemia History of pulmonary embolism History of TIA (transient ischemic attack) Vitamin D deficiency Surgical History History of appendectomy Family History Mother DVT (deep venous thrombosis) Polymyositis Social History Smoking and tobacco/nicotine status: former use of tobacco/nicotine Second hand smoke exposure: No Alcohol intake: never Substance/Drug Use: never Vitals/I&O/Wt Last Vital Signs Temp 98.1 F 09/19/24 21:18 Pulse 86 09/19/24 21:18 Resp 28 H 09/19/24 21:48 BP 163/80 09/19/24 21:18 Pulse Ox 96 09/19/24 21:48 O2 Del Method Nasal Cannula 09/19/24 16:00 09/19/24 09/19/24 09/19/24 06:59 14:59 22:59 Intake Total 236.25 / 236.25 Balance 236.25 / 236.25 Weight last 48 hrs Weight 107 lb 2 oz Physical Exam Const: COMMON NORMALS: no acute distress, average body habitus, no limitations and well nourished; negative for patient oriented x3 GENERAL APPEARANCE: cooperative; not anxious and not combative ORIENTATION/CONSCIOUSNESS: Yes awake, Yes oriented to person and Yes confused; not oriented to place and not oriented to time HENMT: COMMON NORMALS: normocephalic and atraumatic HEAD & SCALP: normocephalic and atraumatic Neck/C-Spine: COMMON NORMALS: no JVD Resp: COMMON NORMALS: normal respiratory effort and clear to auscultation bilaterally AUSCULTATION: clear to auscultation bilaterally Cardio: COMMON NORMALS: no JVD, regular rate, regular rhythm, S1 normal heart sound present and S2 normal heart sound present RATE: regular rate RHYTHM: regular rhythm HEART SOUNDS: S1 normal heart sound present and S2 normal heart sound present Extremity: LEFT LOWER EXTREMITY: Yes hip joint Left hip: Yes inspection (No skin breakdown. Light bruising posterior hip. No darell deformity), Yes palpation (To palpation - per FACES scale), Yes ROM (Not assessed due to known fracture.), Yes neurovascular exam (Sensation intact to light touch. Rapid cap refill. ) and Yes other (LLE slightly externally rotated.) and Yes lower leg Left lower leg: Yes inspection (No swelling, erythema or color change.), Yes palpation (No increased warmth.) and Yes special tests Left lower leg special tests: Mell's sign: Negative Neuro: COMMON NORMALS: negative for patient oriented x3 SENSORIUM/ORIENTATION: Yes oriented to person, No oriented to place and No oriented to time Psych: ATTITUDE: Yes engaged Skin: COMMON NORMALS: no rashes or lesions noted, turgor normal and no jaundice GENERAL SKIN EXAM: no rashes or lesions noted and turgor normal Urinary Catheter Management: Kelly: Cath Placed During This Visit: yes Reason for Continuing Indwelling Catheter: Perioperative Use in Selected Surgeries Urinary Catheter Date of Insertion: 09/19/24 Urinary Catheter Time of Insertion: 14:25 Data 09/19/24 11:20 09/19/24 11:20 Xray Ortho: Radiologist's impression: IMPRESSION: 1. Questionable incomplete subcapital fracture along the lateral margin of the femoral neck. Consider CT for further work-up. Dictated By: Darek Michael DO Signed By: Darek Michael DO A&P Assessment and plan (1) Subcapital fracture of left hip: Patient has known dementia and is largely and oriented. Unable to answer many questions. Patient denies having any discomfort or currently being in any pain however, when moving the left lower extremity she does grimace and hris analyst the left lower extremity. X-rays of the left hip and left hip CT scan were reviewed extensively. There is noted incomplete, nondisplaced subcapital hip fracture of the left femur. There is noted impaction and cortical step-off, per CT report. With review of the patient's imaging, the patient will require surgical intervention for left hip hemiarthroplasty. This care will need to be coordinated with the skilled facility, as well as the patient's primary medical decision makers, her Noé and daughter Mary Kate. This will be coordinated with nursing staff. Tentatively, surgery will be scheduled for Friday, September 20, 2024. Patient will remain n.p.o. after midnight tonight. She will remain nonweightbearing, at bedrest. After surgery is completed, the plan will be for the patient to return to [facility] facility, once cleared by the medical service and all care is coordinated. Orthopedic services will continue to follow the patient while she is admitted. Qualifiers: Encounter type: initial encounter Fracture type: closed Qualified Code(s): S72.012A - Unspecified intracapsular fracture of left femur, initial encounter for closed fracture (2) Dementia: (3) History of DVT (deep vein thrombosis): (4) History of pulmonary embolism: PDMP PDMP Reviewed: Not Reviewed Consult Attestations Medical Necessity Statement: Patient's care and hospitalization will likely cross 2 midnights, in relation to treatment of her multiple medical comorbidities, optimization of these medical comorbidities and for further intervention in relation to the left femoral subcapital fracture. Coding Level of Care Code Acute Code for [facility] Fwd Diagnoses Closed subcapital fracture of left femur, initial encounter S72.012A Encounter type: initial encounter Fracture type: closed Dementia F03.90 History of DVT (deep vein thrombosis) Z86.718 History of pulmonary embolism Z86.711
[2024-09-20] VITALS (10 sets, daily range): BP systolic 93–138; BP diastolic 54–80; PULSE 77–98; RESP 12–20; TEMP 36.5–37.6; O2SAT 86–96; BMI 20.9
[2024-09-20] MEDS: morphine 4 mg/mL SDV 1 mL 2 MG IVP (01:30)
[2024-09-20] MEDS: heparin 5,000 unit/mL INJ 1 mL 5000 UNIT SUBCUT ×3 (02:57→15:00)
[2024-09-20 05:31] LABS: Basophils % 0.3 %; Eosinophils # 0.1 10^3/uL (0.0-0.8); Eosinophils % 0.5 %; Lymphocytes # 0.7 10^3/uL (0.8-4.8); Lymphocytes % 5.8 %; Mean Corpuscular Hemoglobin 23.8 pg (27-33); Mean Corpuscular Volume 79.3 fl (85-98); Mean Platelet Volume 10.3 fL (7.4-10.4); Monocytes # 1.5 10^3/uL (0.2-0.9); Monocytes % 12.6 %; Neutrophils % 79.9 %; Nucleated Red Blood Cells % 0 %; Platelet Count 298 10^3/cmm (157-399); Red Blood Count 3.91 10^6/uL (3.85-5.65); Red Cell Distribution Width 16.3 % (12.1-15.1); White Blood Count 12.14 10^3/uL (3.29-11.43)
[2024-09-20 06:01] LABS: Alanine Aminotransferase 8 U/L (0-33); Albumin Level 3.3 g/dL (3.5-5.2); Alkaline Phosphatase 94 U/L (35-105); Anion Gap 13.7 (5-19); Aspartate Amino Transferase 12 U/L (0-32); Blood Urea Nitrogen 12 mg/dL (8-23); Calcium 9.1 mg/dL (8.5-10.5); Carbon Dioxide 28 mmol/L (22-29); Chloride 98 mmol/L (98-107); Globulin 3.2 g/dL (1.3-4.6); Glucose 106 mg/dL (65-115); Magnesium 1.7 mg/dL (1.7-2.3); Osmolality Calculated 282 mOsm/kg (285-295); Potassium 3.7 mmol/L (3.5-5.1); Sodium 136 mmol/L (136-145); Total Bilirubin 0.7 mg/dL (0.15-1.2); Total Protein 6.5 g/dL (6.6-8.7)
[2024-09-20] MEDS: clindamycin 600 MG/50 ML PREMIX 100 MG IV (06:05)
--- NOTE | 2024-09-20 09:30 | PC.CHAP ---
Pastoral Care Encounter/Spiritual Assessment Type of Contact [] Declined ux specialist visit [] Patient/Family/Request visit [] Outpatient visit [] Follow-up visit [] Physician referral [] Code/Alert [] Routine visit [] Staff referral [] Actively dying [x] Patient sleeping [] Family support [] [] Out of room [] Palliative care [] [] Receiving care in room [] Pre-surgical visit [] Trauma [] Long length of stay [] ICU visit [] Other: Relational/Emotional Strength [] Patient feels connected with others/family/visitors/staff [] Distress [] Loneliness/isolation [] Abandonment Spirituality of Patient [] Person of Jennifer [] Attends Lutheran of their Jennifer [] Believes in Prayer [] Reads Bible or Methodist materials [] There are Spiritual issues to be addressed Mass Spectroscopist Interventions [] Prayer [] Active listening [] Non-anxious presence [] Spiritual/emotional support [] Crisis/trauma care [] Spiritual counseling [] Bereavement support [] Provided bereavement packet [] Provided Bible/devotional materials [] Provided toy/stuffed animal, coloring book to patient or family member [] Provided Communion [] Anointing/[place] [] Salvation [] Completed spiritual assessment [] Other: Impact on Illness or Injury [] Angry [] Fearful [] Anxious [] Often cries [] Exhaustion [] Unable to work [] Unable to attend adventism [] Unable to walk/stand [] Unable to read [] Unable to drive [] Unable to eat/drink [] Unable to sleep [] Unable to be with family [] Patient intubated [] Other: Summary Time spent with patient
--- NOTE | 2024-09-20 10:42 | ECG_ITS ---
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 Measurements Intervals [place] Rate: 98 P: 78 MI: 116 QRS: 54 QRSD: 83 T: 94 QT: 365 QTc: 467 Interpretive Statements SINUS RHYTHM WITH SHORT [place] INTERVAL POSSIBLE LEFT ATRIAL ENLARGEMENT [-0.1mV P-WAVE IN V1/V2] ST DEVIATION AND MODERATE T-WAVE ABNORMALITY, CONSIDER ANTERIOR ISCHEMIA [-0.1+ mV T-WAVE IN V3/V4] Compared to ECG 09/19/2024 15:47:55 Possible ischemia now present T-wave abnormality still present Electronically Signed On 09-20-2024 15:57:49 CDT by Marguerite Oswald M.D. [id number]
[2024-09-20 11:10] LABS: ABG PCO2 44.4 mmHg (35-45); ABG PH Result 7.43 (7.35-7.45); Alveolar-Arterial Oxygen Gradi 1.5 mmHg (5-10); Arterial Blood Gas Hematocrit 29.8 % (37-47); Base Excess ABG 4.6 mmol/L (-2.0-2.0); Blood Gas Operator Identificat BROMA; Blood Gas Sample Site Brachial, left; Blood Gas Sample Type Arterial; Carboxyhemoglobin 1.4 %THgb (0.4-20.1); HCO3 ABG 29.5 mmol/L (22-26); HGB O2 Sat 94.7 % (95-100); Ionized Calcium Level - ABG 1.3 mmol/L (1.1-1.4); Methemoglobin 0.8 % (0.4-1.5); Oxygen Device OXY MASK; Oxygen Saturation ABG 96.9; PO2 ABG 83.7 mmHg (80.0-100.0); Potassium Level - ABG 3.6 mmol/L (3.5-5.0); Total Hemoglobin 9.7 g/dL (12-16)
[2024-09-20 11:50] LABS: Troponin(5th) Baseline 52 ng/L (0-10)
[2024-09-20] MEDS: levETIRAcetam 500 MG/100 ML PREMIX 400 MG IV ×2 (12:04→22:30)
--- NOTE | 2024-09-20 12:12 | P.PN_ITS ---
Subjective 2 Subjective: seen this am patient on 7L oxymask but i dont believe we are getting a good reading on pulse ox, check ABG patients appears euvolemic clinically today UO 1500 cc overnight echo pending at this time BNP 4400 no know hx of HF pt denies cP, she is pleasantly confused Vitals/I&O/Wt Last Vital Signs Temp 97.7 F 09/20/24 11:04 Pulse 98 09/20/24 11:04 Resp 15 09/20/24 11:04 BP 116/66 09/20/24 11:04 Pulse Ox 96 09/20/24 11:04 O2 Del Method Oxymask 09/20/24 11:04 O2 Flow Rate 4 09/20/24 11:04 09/19/24 09/20/24 09/20/24 22:59 06:59 14:59 Intake Total 236.25 / 236.25 90 / 326.25 Output Total 1550 / 1550 Balance 236.25 / 236.25 -1460 / -1223.75 Weight last 48 hrs Weight 48.591 kg Weight 48.591 kg Physical Exam 2 Narrative: General: Alert and oriented to self, confused. HEENT: Normocephalic, atraumatic, EOMI, breathing 7L oxymask, inaccurate pulse ox reading, awaiting ABG Cardio: Regular rate rhythm, normal S1-S2, Respiratory: Clear to auscultation bilaterally no wheezes no rhonchi. GI: Abdomen soft, nontender, nondistended, bowel sounds + Extremities: Mild swelling noted at left hip. Urinary Catheter Management: Kelly: Cath Placed During This Visit: yes Reason for Continuing Indwelling Catheter: Perioperative Use in Selected Surgeries Urinary Catheter Date of Insertion: 09/19/24 Urinary Catheter Time of Insertion: 14:25 Data 09/20/24 05:01 09/20/24 05:01 A&P Assessment and plan (1) Closed fracture of left hip: (2) Atrial septal aneurysm: (3) History of CVA (cerebrovascular accident) without residual deficits: (4) Hyperlipemia: Qualifiers: Hyperlipidemia type: mixed hyperlipidemia Qualified Code(s): E78.2 - Mixed hyperlipidemia Plan #Left femoral neck fracture #History of pulmonary embolism, used to be on Xarelto #History of seizures, currently on Keppra. #History of CVA #History of atrial septal aneurysm #Dementia #[facility] resident #Hx of GI bleed ? Pain control ? Orthopedic surgery consulted ? Continue DVT prophylaxis with heparin SQ twice daily. Patient is at high risk of PE DVT secondary to history of such. ? As per previous discharge summary. It is indicated that on prior hospitalization Xarelto was stopped after it was continued for several years for what appears to be a DVT however it was unknown if it was provoked or unprovoked in the past. She did have a PE shortly after being taken off of Xarelto therefore long-term anticoagulation was recommended going forward. Last echo is from 2022 LVEF 65% no diagnostic regional wall motion abnormalities. ? Continue Keppra 500 twice daily ? Obtain baseline EKG, chest x-ray ? Patient unable to provide a history however denies chest pain at this time. -Orthopedic surgery consulted. ? Blood pressure elevated most likely secondary to pain. I do not believe she has hypertension. ? Continue to monitor blood pressure. May use hydralazine 5 mg IV every 6-8 hours as needed. ? I do expect her blood pressure to improve after pain medicine. - PT after surgery. She will need DVT prophylaxis after surgery. ? Check urine culture. Leukocytosis most likely reactive however patient does have acute on chronic encephalopathy. Must rule out UTI. Will check urinalysis. Will place on empiric ceftriaxone. DVT prophylaxis: Heparin SQ twice daily 09/20/2024 As per patient's son she had some sort of GI bleed situation in the last 1 or 2 years. We are awaiting records from [facility]. At that point Xarelto was stopped indefinitely. There is no sign of bleed at this time. Hemoglobin stable at 10.3. ? There is no known history of heart failure however patient's BNP was 4400 when checked yesterday evening. Chest x-ray did show pulmonary vascular congestion. Patient given Lasix 40 IV x 1. Urine output 1550 overnight. Clinically she appears to be euvolemic at this time. Echocardiogram is pending. Cardiology consulted for cardiac optimization for surgery. Tentatively surgery has been planned for 4 PM today as per nursing staff. Urinalysis did show 100 RBCs, 3+ blood. Possible traumatic insertion of Kelly. Hemoglobin is stable. Continue to monitor. Vitals are stable. Patient on 4 L oxy mask. She is a mouth breather. Patient is confused. Does follow some commands. Urinalysis suggestive of UTI. Patient was given preop antibiotics clindamycin x 2. ABG ordered and reviewed. Will await echo. Once okay from cardiac standpoint patient may proceed for femoral neck fracture repair. PDMP PDMP Reviewed: Not Reviewed Attestations 2 Medical Necessity Statement*: Femoral neck fracture. Diagnoses Closed fracture of left hip S72.002A Atrial septal aneurysm I25.3 History of CVA (cerebrovascular accident) without residual deficits Z86.73 Mixed hyperlipidemia E78.2 Hyperlipidemia type: mixed hyperlipidemia
--- NOTE | 2024-09-20 12:42 | ANES.PREANE2 ---
Pre-Anesthetic Assessment Height/Weight: Height 5 ft Weight 107 lb 2 oz Temp Pulse Resp BP Pulse Ox O2 Del Method O2 Flow Rate 97.7 F 98 15 116/66 96 Oxymask 4 09/20/24 11:04 09/20/24 11:04 09/20/24 11:04 09/20/24 11:04 09/20/24 11:04 09/20/24 11:04 09/20/24 11:04 Preop Diagnosis: Hip fracture Operation Date: 09/20/24 14:25 Proposed Procedures p Hemiarthroplasty Hip(Left) - Evans Price MD Was Beta Arlette taken within 24 hours: N/A Was Clonidine taken within 24 hours: N/A Exam regular rate & rhythm Sleepy, very demented Airway Comments: Comments: Could not be examined as patient is demented and not following commands Anesthetic Plan ASA status: 4 Anesthesia: MAC and Regional (specify below) Other: No prior issues with anesthesia NPO since yesterday Patient has a history of DVT/PE. Used to be on Xarelto but no longer takes this History of atrial septal aneurysm Prior CVA without residual weakness dementia Seizures, on chronic Keppra GERD on Pepcid Labs reviewed. Hemoglobin 9.3 Patient has bronchitis, on 7 L oxygen mask BNP 4400 at admission Echo showing EF 58%. Systolic PA pressure 72 with a mean of 32 Plan for low spinal anesthetic with light sedation Medications/Allergies Home Medications ?Medication ?Instructions ?Recorded ?Confirmed ?Last Taken ?Type famotidine 20 mg tablet 20 mg PO DAILY #90 tabs 12/30/23 09/19/24 09/19/24 Rx bisacodyl 10 mg rectal suppository 10 mg GA DAILY PRN Constipation 09/19/24 09/19/24 09/19/24 History citalopram 10 mg tablet 10 mg PO DAILY 09/19/24 09/19/24 09/19/24 History levetiracetam 500 mg tablet 500 mg PO BID 09/19/24 09/19/24 09/19/24 History magnesium citrate 296 ml PO DAILY PRN Constipation 09/19/24 09/19/24 Unknown History magnesium hydroxide 400 mg/5 mL 30 ml PO DAILY PRN Constipation 09/19/24 09/19/24 Unknown History oral suspension (Milk of Magnesia) polyethylene glycol 3350 17 17 g PO DAILY 09/19/24 09/19/24 09/18/24 History gram/dose oral powder sodium phosphates 19 gram-7 118 ml GA DAILY PRN Constipation 09/19/24 09/19/24 Unknown History gram/118 mL enema (Fleet Enema) Allergies Allergy/AdvReac Type Severity Reaction Status Date / Time Penicillins Allergy Mild rash Verified 09/19/24 11:08 Current Medications Generic Name Dose Route Start Last Admin Trade Name Freq PRN Reason Stop Dose Admin Citalopram Hydrobromide 10 mg 09/20/24 09:00 09/20/24 09:40 Citalopram 20 Mg Tablet PO Not Given DAILY JANNIE Famotidine 20 mg 09/20/24 09:00 09/20/24 09:40 Famotidine 20 Mg Tablet PO Not Given DAILY JANNIE Furosemide 40 mg 09/19/24 21:15 09/19/24 21:39 Furosemide 10 Mg/Ml Sdv 4ml IVP 40 mg Q24H JANNIE Administration Heparin Sodium (Porcine) 5,000 unit 09/19/24 14:30 09/20/24 02:57 Heparin 5,000 Unit/Ml Inj 1 Ml SUBCUT 5,000 unit Q12H JANNIE Administration Levetiracetam 500 mg in 100 mls @ 400 mls/hr 09/20/24 11:00 09/20/24 12:04 Keppra IV 400 mls/hr Q12H JANNIE Administration Morphine Sulfate 2 mg 09/19/24 14:29 09/20/24 01:30 Morphine 4 Mg/Ml Sdv 1 Ml IVP 2 mg Q4H PRN Administration SEVERE PAIN Polyethylene Glycol 17 gm 09/20/24 09:00 09/20/24 09:40 Polyethylene Glycol 3350 Pkt 17 Gm PO Not Given DAILY JANNIE PFSH Anesthesia Medical History (Updated 09/19/24 @ 22:40 by RAKESH Sparrow-SAMY) History of DVT (deep vein thrombosis) Subcapital fracture of left hip Encounter for medication review Aspiration pneumonia Physical deconditioning Protein calorie malnutrition Hyponatremia Transaminitis NSTEMI (non-ST elevated myocardial infarction) Bilateral pulmonary embolism Acute on chronic alteration in mental status Abnormal MRI of head History of CVA (cerebrovascular accident) without residual deficits Atrial septal aneurysm CVA (cerebral vascular accident) Hypoxia Anticoagulated by anticoagulation treatment Dementia Essential hypertension History of CVA (cerebrovascular accident) Hyperlipemia History of pulmonary embolism History of TIA (transient ischemic attack) Vitamin D deficiency Surgical History History of appendectomy Family History Mother DVT (deep venous thrombosis) Polymyositis Social History Smoking and tobacco/nicotine status: former use of tobacco/nicotine Second hand smoke exposure: No Alcohol intake: never Substance/Drug Use: never Data Anesthesia 09/20/24 05:01 09/20/24 05:01 Short CBC 09/19/24 09/20/24 Range/Units 11:20 05:01 WBC 13.50 H 12.14 H (3.29-11.43) 10^3/uL Hgb 10.70 L 9.30 L (11.27-16.99) g/dL Hct 36.4 31.0 L (36-47) % MCV 78.8 L 79.3 L (85-98) fl Plt Count 323 298 (157-399) 10^3/cmm Neut % (Auto) 83.0 79.9 % Neut # (Auto) 11.20 H 9.70 H (1.8-7.7) 10^3/uL BMP 09/19/24 09/20/24 11:20 05:01 Sodium 134 L 136 Potassium 4.0 3.7 Chloride 97 L 98 Carbon Dioxide 26 28 BUN 11 12 Creatinine 0.6 0.8 Glucose 104 106 Calcium 9.6 9.1 Cardiac Enzymes 09/19/24 09/20/24 Range/Units 11:20 11:13 Troponin T Baseline 52 H (0-10) ng/L NT-Pro-B Natriuret Pep 4493 H (0-450) pg/mL Liver Function 09/19/24 09/20/24 Range/Units 11:20 05:01 Total Bilirubin 0.7 0.7 (0.15-1.2) mg/dL AST 14 12 (0-32) U/L ALT 8 8 (0-33) U/L Alkaline Phosphatase 99 94 (35-105) U/L Albumin 3.8 3.3 L (3.5-5.2) g/dL Urine 09/19/24 Range/Units 17:28 Urine Color Yellow (Yellow) Urine Appearance Slightly cloudy (CLEAR) Urine pH 5 (5-7) Ur Specific [place] 1.025 (1.005-1.030) Urine Protein 1+ A (Negative) Urine Glucose (UA) Norm (Normal) Urine Ketones 1+ H (Negative) Urine Nitrate Negative (Negative) Urine Bilirubin Neg (Negative) Ur Leukocyte Esterase Trace A (Negative) Urine RBC >100 H (0-2) /hpf Urine WBC 6-10 (0-5) /hpf Coags 09/19/24 09/20/24 11:20 05:01 PT 14.80 15.00 H INR 1.09 1.10 ABG 09/20/24 10:55 Specimen Type Arterial Sample Site Brachial, left ABG pH 7.43 ABG pCO2 44.4 ABG pO2 83.7 ABG HCO3 29.5 H ABG O2 Saturation 96.9 ABG Base Excess 4.6 H A-a O2 Gradient 1.5 L O2 Delivery Device Oxy mask O2 Liters/Min 6.0 Cardiac Studies: Echocardiogram 09/19/24 Echocardiogram Limited Views 03/16/23
--- NOTE | 2024-09-20 13:07 | ECG_ITS ---
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 Measurements Intervals [place] Rate: 83 P: 68 [place]: 112 QRS: 43 QRSD: 77 T: 246 QT: 413 QTc: 487 Interpretive Statements SINUS RHYTHM WITH SHORT [place] INTERVAL POSSIBLE LEFT ATRIAL ENLARGEMENT [-0.1mV P-WAVE IN V1/V2] MODERATE T-WAVE ABNORMALITY, CONSIDER ANTEROLATERAL ISCHEMIA [-0.1+ mV T-WAVE IN V3-V6] MODERATE T-WAVE ABNORMALITY, CONSIDER INFERIOR ISCHEMIA [-0.1+ mV T-WAVE IN II/aVF] Compared to ECG 09/20/2024 11:01:03 No significant changes Electronically Signed On 09-20-2024 16:04:13 CDT by Marguerite Oswald M.D. [email or web address] [id number]
--- NOTE | 2024-09-20 13:37 | CT_ITS ---
WS: [id number] CTA OF THE CHEST WITH PULMONARY EMBOLISM PROTOCOL TECHNIQUE: High-resolution contrast enhanced CTA of the chest with coronal and sagittal reformatted images with pulmonary embolism protocol. MIP images are also reviewed. CLINICAL INFORMATION: hypoxia, r/o PE COMPARISON: CT 03/15/23 DLP: 239.[address] scans at [facility] use at least one of these dose optimization techniques: automated exposure control; mA and/or kV adjustment per patient size (includes targeted exams where dose is matched to clinical indication); or iterative reconstruction. FINDINGS: Proximal main pulmonary arteries are normal. Filling defect in the LEFT upper lobe segmental pulmonary artery compatible with pulmonary embolus. Few filling defects in the RIGHT middle and RIGHT lower lobe segmental and subsegmental pulmonary arteries. Large esophageal hiatal hernia with intrathoracic stomach and air-fluid level. Focal spiculated opacity RIGHT lower lobe posteromedially measuring 1.8 cm. Recommend short interval follow-up and if persistent further evaluation with PET/CT. Advanced chronic emphysematous changes with areas of chronic fibrosis in both lungs. CT/CT angio chest PE protcl [id number] IMPRESSION: 1. Evidence of segmental and subsegmental pulmonary emboli described above. 2. Several scattered mainly peripheral parenchymal opacities worse in the LEFT upper lobe. This may be infectious or inflammatory also consider septic emboli . 3. Large esophageal hiatal hernia with intrathoracic stomach. 4. Advanced chronic emphysematous changes with scattered areas of fibrosis. 5. Focal spiculated opacity RIGHT lower lobe posterior medially measuring 1.8 cm. Neoplasm not excluded. Recommend short interval follow-up chest CT and cons ider further evaluation with PET/CT if persistent Message LEFT for Haydee Carrillo MD at 09/20/2024 3:05 PM.
[2024-09-20] MEDS: iohexol 350 mg/mL 500 mL Btl (per mL) IV (14:39)
[2024-09-20 14:53] LABS: Troponin 5 2HR 105.5 ng/L (0-10); Troponin 5 2HR Delta 53.5 ABS# (0-10)
[2024-09-20] MEDS: levofloxacin-dextrose 5 % 500 MG/100 ML PREMIX 100 MG IV (14:57)
[2024-09-20] MEDS: FUROsemide 10 mg/mL SDV 4mL 40 MG IVP (14:57)
--- NOTE | 2024-09-20 15:00 | ECG_ITS ---
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 Measurements Intervals [place] Rate: 87 P: 73 [place]: 124 QRS: 33 QRSD: 80 T: -80 QT: 400 QTc: 484 Interpretive Statements SINUS RHYTHM POSSIBLE LEFT ATRIAL ENLARGEMENT [-0.1mV P-WAVE IN V1/V2] MODERATE T-WAVE ABNORMALITY, CONSIDER ANTERIOR ISCHEMIA [-0.1+ mV T-WAVE IN V3/V4] Compared to ECG 09/20/2024 13:07:08 Short CO interval no longer present T-wave abnormality still present Possible ischemia still present Electronically Signed On 09-20-2024 16:03:35 CDT by Marguerite Oswald M.D. [email or web address] [id number]
[2024-09-20] MEDS: heparin drip 25,000 UNIT/500 ML PREMIX 15 UNIT IV (17:39)
[2024-09-20 17:50] LABS: Troponin 5 6HR 139.6 ng/L (0-10); Troponin 5 6HR Delta 87.6 ng/L (0-12)
--- NOTE | 2024-09-20 17:55 | P.CONIM_ITS ---
<Statement entered by Cindy Cortés MD - 09/20/24 21:57> Patient was evaluated and cared for in conjunction with an advanced practice practitioner. I personally examined the patient and reviewed the chart and all pertinent data including imaging, telemetry, and laboratory results. I discussed the patient in detail with the advanced practice practitioner. Please see their note for complete H&P testing result and agreed upon plan of care for the patient. 89-year-old female presented with subcapital fracture of the left hip past medical history significant for diastolic heart failure pulm hypertension mitral regurgitation who is a residential resident we have been asked to clear her for hip surgery When I examined the patient COPD short of breath on 7 L of oxygen according to the nurses and the staff she does not wear oxygen at home. Physical examination she has bilateral basal to mid inspiratory crackles GENERAL: Patient is awake but lethargic with underlying dementia HEART: Regular S1 and S2. No murmur, rub or gallop. LUNGS Inspiratory crackles bilaterally. CENTRAL NERVOUS SYSTEM: Grossly nonfocal. EXTREMITIES: Lower extremities with out edema bilaterally. Assessment and plan Hypoxia Acute systolic decompensated heart failure Sub capital left hip fracture Frail residential resident History of DVT and pulmonary embolism Patient appeared to be in mild respiratory distress with increasing demand heart oxygen, etiology could be decompensated diastolic heart failure versus aspiration Recommend IV Lasix 40 mg twice daily Replenish potassium as needed Antibiotics as per medicine Postpone surgery until patient becomes euvolemic or stable Discussed with orthopedic surgery nurse practitioner Providers/Reason For Consult 2 Consulting Physician/Specialty*: Cindy Cortés MD Reason for Consult*: Preoperative clearance Requesting Physician: Dr. Carrillo Attending Physician: Haydee Carrillo MD Primary Care Provider: Mya Cole MD History of Present Illness History of Present Illness Maria Alejandra Zayas is a 89 year old female with a history of dementia very poor historian with no history of known heart disease who came into the emergency room from the residential with a history of a fall. She was found to have a left hip fracture. She does have a history of PE that is chronic and pulmonary hypertension. Patient was doing okay and then per report required higher levels of oxygen last night with crackles in her lungs. At the time of my assessment she did not appear in significant respiratory distress but was requiring 7 L of oxygen. Patient was scheduled to go for a left hip hemiarthroplasty. We were consulted for preop cardiac clearance. Echo was obtained that showed normal left ventricular size and systolic function EF 58% no regional wall motion abnormalities mild left ventricular hypertrophy with grade 1 out of 4 diastolic dysfunction. She is found to have moderate pulmonary hypertension. Review of Systems 2 Narrative: Review of systems were unable to be obtained as patient is only oriented to self. Medications/Allergies Home Medications ?Medication ?Instructions ?Recorded ?Confirmed ?Last Taken ?Type famotidine 20 mg tablet 20 mg PO DAILY #90 tabs 12/1209/19/24 09/19/24 Rx bisacodyl 10 mg rectal suppository 10 mg MN DAILY PRN Constipation 09/19/24 09/19/24 09/19/24 History citalopram 10 mg tablet 10 mg PO DAILY 09/19/2402/0509/19/24 History levetiracetam 500 mg tablet 500 mg PO BID 09/19/2402/0509/19/24 History magnesium citrate 296 ml PO DAILY PRN Constipa tion 09/19/24 09/19/24 Unknown History magnesium hydroxide 400 mg/5 mL 30 ml PO DAILY PRN Con stipation 09/19/24 09/19/24 Unknown History oral suspension (Milk of Magnesia) polyethylene glycol 3350 17 17 g PO DAILY 09/19/2402/0509/18/24 History gram/dose oral powder sodium phosphates 19 gram-7 118 ml MN DAILY PRN Consti pation 09/19/24 09/19/24 Unknown History gram/118 mL enema (Fleet Enema) Allergies Allergy/AdvReac Type Severity Reaction Status Date / Time Penicillins Allergy Mild rash Verified 09/19/24 11:08 Current Medications Generic Name Dose Route Start Last Admin Trade Name Freq PRN Reason Stop Dose Admin Citalopram Hydrobromide 10 mg 09/20/24 09:00 09/20/24 09:40 Citalopram 20 Mg Tablet PO Not Given DAILY JANNIE Famotidine 20 mg 09/20/24 09:00 09/20/24 09:40 Famotidine 20 Mg Tablet PO Not Given DAILY JANNIE Furosemide 40 mg 09/20/24 14:00 09/20/24 14:57 Furosemide 10 Mg/Ml Sdv 4ml IVP 40 mg Q12H JANNIE Administration Levetiracetam 500 mg in 100 mls @ 400 mls/hr 09/20/24 11:00 09/20/24 13:00 Keppra IV Infused Q12H JANNIE Infusion Levofloxacin/Dextrose 500 mg in 100 mls @ 100 mls/hr 09/20/24 13:45 09/20/24 14:57 Levaquin-D5w IV 100 mls/hr Q24H JANNIE Administration Protocol Heparin Sodium/Sodium Chloride 25,000 unit in 500 mls @ 0 mls/hr 09/20/24 15:30 09/20/24 17:39 Heparin Drip IV 15.43 unit/kg/hr CONT JANNIE 15 mls/hr Administration Protocol Per Protocol Morphine Sulfate 2 mg 09/19/24 14:29 09/20/24 01:30 Morphine 4 Mg/Ml Sdv 1 Ml IVP 2 mg Q4H PRN Administration SEVERE PAIN Polyethylene Glycol 17 gm 09/20/24 09:00 09/20/24 09:40 Polyethylene Glycol 3350 Pkt 17 Gm PO Not Given DAILY JANNIE PFSH Acute 2 PFSH: Medical History (Updated 09/19/24 @ 22:40 by FLAVIO Sparrow) History of DVT (deep vein thrombosis) Subcapital fracture of left hip Encounter for medication review Aspiration pneumonia Physical deconditioning Protein calorie malnutrition Hyponatremia Transaminitis NSTEMI (non-ST elevated myocardial infarction) Bilateral pulmonary embolism Acute on chronic alteration in mental status Abnormal MRI of head History of CVA (cerebrovascular accident) without residual deficits Atrial septal aneurysm CVA (cerebral vascular accident) Hypoxia Anticoagulated by anticoagulation treatment Dementia Essential hypertension History of CVA (cerebrovascular accident) Hyperlipemia History of pulmonary embolism History of TIA (transient ischemic attack) Vitamin D deficiency Surgical History History of appendectomy Family History Mother DVT (deep venous thrombosis) Polymyositis Social History Smoking and tobacco/nicotine status: former use of tobacco/nicotine Second hand smoke exposure: No Alcohol intake: never Substance/Drug Use: never Vitals/I&O/Wt Last Vital Signs Temp 98.3 F 09/20/24 15:53 Pulse 98 09/20/24 15:53 Resp 16 09/20/24 15:53 BP 103/73 09/20/24 15:53 Pulse Ox 96 09/20/24 15:53 O2 Del Method Oxymask 09/20/24 15:53 O2 Flow Rate 7 09/20/24 15:53 09/20/24 09/20/24 09/20/24 06:59 14:59 22:59 Intake Total 90 / 326.25 100 / 100 Output Total 1550 / 1550 Balance -1460 / -1223.75 100 / 100 Weight last 48 hrs Weight 113 lb Weight 107 lb 2 oz Weight 107 lb 2 oz Physical Exam 2 Narrative: General: No apparent distress, healthy appearing, well nourished HENMT: normoceophalic Muskuloskeletal: Full ROM Lymphatic: no lymphedema noted Respiratory: Normal respiratory effort, mild bibasilar crackles bilaterally, no use of accessory muscles Cardio: No JVD, regular rate, regular rhythm, S1 S2 normal, no murmurs, peripheral pulses 2+ radial palpated bilaterally Extremities: Full ROM, normal, normal capillary refill, no cyanosis or edema Neuro: Alert and oriented x4, no focal motor deficits Psych: Affect normal, denies suicidal ideation, mental status grossly normal Skin: No rashes or lesions noted, no wounds Urinary Catheter Management: Kelly: Cath Placed During This Visit: yes Reason for Continuing Indwelling Catheter: Perioperative Use in Selected Surgeries Urinary Catheter Date of Insertion: 09/19/24 Urinary Catheter Time of Insertion: 14:25 Data 09/20/24 05:01 09/20/24 05:01 A&P Assessment and plan (1) History of pulmonary embolism: (2) History of DVT (deep vein thrombosis): (3) Subcapital fracture of left hip: Qualifiers: Encounter type: initial encounter Fracture type: closed Qualified Code(s): S72.012A - Unspecified intracapsular fracture of left femur, initial encounter for closed fracture Plan At this time, patient may have some diastolic heart failure. Other possible causes for increased O2 demand could be pulmonary hypertension as well as underlying lung disease. At this time, we recommend postponing surgery and attempting to diurese her with lasix 40 BID. We will see how she responds to this. Thank you, Dr. Carrillo, for allowing us to care for this 89 year old female. PDMP PDMP Reviewed: Not Reviewed Consult Attestations 2 Medical Necessity Statement: Deferred to primary Coding Level of Care Code Acute Code for Chg Fwd Diagnoses History of pulmonary embolism Z86.711 History of DVT (deep vein thrombosis) Z86.718 Closed subcapital fracture of left femur, initial encounter S72.012A Encounter type: initial encounter Fracture type: closed
[2024-09-21] VITALS (10 sets, daily range): BP systolic 112–147; BP diastolic 66–92; PULSE 73–97; RESP 14–18; TEMP 36.3–37.1; O2SAT 78–98; BMI 22.0
[2024-09-21 00:09] LABS: Partial Thromboplastin Time 62.6 SECONDS (23.9-36.7)
[2024-09-21] MEDS: FUROsemide 10 mg/mL SDV 4mL 40 MG IVP ×2 (02:14→15:21)
[2024-09-21 05:43] LABS: Basophils % 0.2 %; Eosinophils % 0.2 %; Hematocrit 31.3 % (36-47); Lymphocytes # 0.8 10^3/uL (0.8-4.8); Lymphocytes % 7.5 %; Mean Corpuscular HGB Conc 30.4 g/dL (30-55); Mean Platelet Volume 9.8 fL (7.4-10.4); Monocytes # 1.2 10^3/uL (0.2-0.9); Monocytes % 11.2 %; Neutrophils # 8.63 10^3/uL (1.8-7.7); Neutrophils % 80.3 %; Nucleated Red Blood Cells % 0 %; Platelet Count 316 10^3/cmm (157-399); Red Blood Count 3.96 10^6/uL (3.85-5.65); Red Cell Distribution Width 16.2 % (12.1-15.1); White Blood Count 10.73 10^3/uL (3.29-11.43)
[2024-09-21 05:57] LABS: Partial Thromboplastin Time 69.8 SECONDS (23.9-36.7)
[2024-09-21 06:05] LABS: Anion Gap 17.3 (5-19); Blood Urea Nitrogen 17 mg/dL (8-23); Calcium 9.4 mg/dL (8.5-10.5); Carbon Dioxide 28 mmol/L (22-29); Chloride 96 mmol/L (98-107); Creatinine Clr Calc Pharmacy 35.9763; Glucose 100 mg/dL (65-115); Magnesium 1.9 mg/dL (1.7-2.3); Osmolality Calculated 288 mOsm/kg (285-295); Potassium 3.3 mmol/L (3.5-5.1); Sodium 138 mmol/L (136-145)
--- NOTE | 2024-09-21 08:43 | PHA.VACGOAL ---
Vancomycin Goal - Goal Vancomycin Goal:: 10-15 mg/L Vancomycin Indication:: Other - Therapy Day of therpy:: Day 1 of [] Actual body weight (kg): 113 lb - Data Labs: WBC 10.73 10^3/uL (3.29-11.43) 09/21/24 05:33 RBC 3.96 10^6/uL (3.85-5.65) 09/21/24 05:33 Hgb 9.50 g/dL (11.27-16.99) L 09/21/24 05:33 Hct 31.3 % (36-47) L 09/21/24 05:33 MCV 79.0 fl (85-98) L 09/21/24 05:33 MCH 24.0 pg (27-33) L 09/21/24 05:33 MCHC 30.4 g/dL (30-55) 09/21/24 05:33 RDW 16.2 % (12.1-15.1) H 09/21/24 05:33 Sodium 138 mmol/L (136-145) 09/21/24 05:33 Potassium 3.3 mmol/L (3.5-5.1) L 09/21/24 05:33 Chloride 96 mmol/L (98-107) L 09/21/24 05:33 Carbon Dioxide 28 mmol/L (22-29) 09/21/24 05:33 Anion Gap 17.3 (5-19) 09/21/24 05:33 BUN 17 mg/dL (8-23) 09/21/24 05:33 Creatinine 0.8 mg/dL (0.5-0.9) 09/21/24 05:33 GFR Calculation Not Reportable 09/21/24 05:33 Last dialysis session:: N/A Treatment plan:: new consult Regimen:: LOADING DOSE OF 1000 MG X 1 PER DOSING PROTOCOL. MAINTENANCE DOSE OF 750 MG Q24H Follow up:: WILL CONTINUE TO MONITOR AND FOLLOW UP DAILY.
[2024-09-21] MEDS: polyethylene glycol 3350 Pkt 17 gm PO (08:52)
[2024-09-21] MEDS: citalopram 20 mg Tablet 10 MG PO (08:52)
[2024-09-21] MEDS: famotidine 20 mg Tablet PO (08:52)
--- NOTE | 2024-09-21 11:04 | P.PN_ITS ---
<Statement entered by Cindy Cortés MD - 09/21/24 22:58> Patient was evaluated and cared for in conjunction with an advanced practice practitioner. I personally examined the patient and reviewed the chart and all pertinent data including imaging, telemetry, and laboratory results. I discussed the patient in detail with the advanced practice practitioner. Please see their note for complete H&P testing result and agreed upon plan of care for the patient. Patient says she is feeling better GENERAL: Patient is alert, awake and oriented x3. HEART: Regular S1 and S2. No murmur, rub or gallop. LUNGS: Decreased breath sound but crackles has improved bilaterally. CENTRAL NERVOUS SYSTEM: Grossly nonfocal. EXTREMITIES: Lower extremities with out edema bilaterally. Assessment and plan Acute decompensated diastolic heart Acute respiratory failure History of DVT/PE History of pulmonary hypertension Continue IV Lasix Continue oxygen therapy Subjective 2 Subjective: Patient doing a little better today from a respiratory standpoint. She was currently on 6 L oxymask at the time of my assessment. She seems more alert today. Vitals/I&O/Wt Last Vital Signs Temp 97.6 F 09/21/24 07:36 Pulse 77 09/21/24 07:37 Resp 18 09/21/24 07:37 BP 119/66 09/21/24 07:36 Pulse Ox 98 09/21/24 07:37 O2 Del Method Oxymask 09/21/24 07:37 O2 Flow Rate 15 09/21/24 07:37 09/20/24 09/21/24 09/21/24 22:59 06:59 14:59 Intake Total 200 / 300 213.25 / 513.25 Output Total 550 / 550 Balance 200 / 300 -336.75 / -36.75 Weight last 48 hrs Weight 113 lb Weight 113 lb Weight 107 lb 2 oz Weight 107 lb 2 oz Physical Exam 2 Narrative: General: No apparent distress, healthy appearing, well nourished HENMT: normoceophalic Muskuloskeletal: Full ROM Lymphatic: no lymphedema noted Respiratory: Normal respiratory effort, clear throughout slightly diminished bilateral lower lobes, no use of accessory muscles Cardio: No JVD, regular rate, regular rhythm, S1 S2 normal, no murmurs, peripheral pulses 2+ radial palpated bilaterally Extremities: Full ROM, normal, normal capillary refill, no cyanosis or edema Neuro: Alert and oriented x4, no focal motor deficits Psych: Affect normal, denies suicidal ideation, mental status grossly normal Skin: No rashes or lesions noted, no wounds Urinary Catheter Management: Kelly: Cath Placed During This Visit: yes Reason for Continuing Indwelling Catheter: Perioperative Use in Selected Surgeries Urinary Catheter Date of Insertion: 09/19/24 Urinary Catheter Time of Insertion: 14:25 Data 09/21/24 05:33 09/21/24 05:33 Micro: Microbiology 09/19/24 14:20 Urine Culture - Preliminary Urine Catheterized 09/19/24 17:28 Urine Culture - Preliminary Urine,Clean Catch A&P Assessment and plan (1) History of pulmonary embolism: (2) History of DVT (deep vein thrombosis): (3) Subcapital fracture of left hip: Qualifiers: Encounter type: initial encounter Fracture type: closed Qualified Code(s): S72.012A - Unspecified intracapsular fracture of left femur, initial encounter for closed fracture Plan At this time, patient may have some diastolic heart failure. Other possible causes for increased O2 demand could be pulmonary hypertension as well as underlying lung disease. At this time, we recommend postponing surgery and attempting to diurese her with lasix 40 BID. We will see how she responds to this. Will continue current care. Creatinine stable at 0.8. PDMP PDMP Reviewed: Not Reviewed Attestations 2 Medical Necessity Statement*: Deferred to primary. Coding Level of Care Code Acute Code for Chg Fwd Diagnoses History of pulmonary embolism Z86.711 History of DVT (deep vein thrombosis) Z86.718 Closed subcapital fracture of left femur, initial encounter S72.012A Encounter type: initial encounter Fracture type: closed
--- NOTE | 2024-09-21 11:42 | XR_ITS ---
WS: [id number] Exam: XR chest 1V portable [id number] Date/Time of Exam: 09/21/2024 11:54 AM Reason For Exam: Post PICC insertion Comparison 09/19/2021. A right-sided PICC line has been placed and appears to end in the region of the cavoatrial junction. Position is satisfactory. The lungs are fully expanded. Large hiatal hernia noted. Heart size top limits normal. Pulmonary vascularity mildly increased. No pleural effusions or pneumothorax. The mediastinum is normal in contour. Bony structures are intact. XR/XR chest 1V portable [id number] IMPRESSION: 1. Right-sided PICC line ending at the cavoatrial junction in satisfactory posi tion. The remaining aspects of the chest show little change since the last exam .
--- NOTE | 2024-09-21 12:37 | PICC.NOTE ---
Dual lumen PICC placed to right basilic vein. Referred to vascular access nurse for PICC placement due to heparin drip and poor access with frequent lab draws. Risks and benefits discussed and informed consent obtained from pt daughter, Mary Kate, via phone. Right arm assessed with right basilic vein measuring 4.7 mm, straight, and apparent best choice for placement. Using sterile technique and MST, right basilic vein accessed x 1 stick. Mid-arm circumference measured 10 cm from right AC 24 cm. Trimmed cath 35 cm with 0 cm external length noted. CXR shows tip in cavoatrial junction, in good position for use per radiologist. Line secured with stat-lock. Insertion site covered with Biopatch and TSM. Report given to bedside nurse, GALLO Humphreys.
[2024-09-21 12:40] LABS: Partial Thromboplastin Time 46.5 SECONDS (23.9-36.7)
[2024-09-21] MEDS: VANCOMYCIN ADD-Vantage 1,000 MG in 0.9% NaCl ADD-Vantage 250 ML 250 MG IV (13:22)
[2024-09-21] MEDS: levETIRAcetam 500 MG/100 ML PREMIX 400 MG IV ×2 (13:23→22:29)
[2024-09-21] MEDS: levofloxacin-dextrose 5 % 500 MG/100 ML PREMIX 100 MG IV (13:55)
--- NOTE | 2024-09-21 14:02 | PM.PN ---
Subjective Subjective: Laying in bed appearing comfortable at this time. She is on 6 L nasal cannula. Slightly more talkative compared to yesterday. Able to follow commands. Pleasantly confused. Vitals/I&O/Wt Last Vital Signs Temp 97.8 F 09/21/24 12:00 Pulse 78 09/21/24 12:00 Resp 16 09/21/24 12:00 BP 118/78 09/21/24 12:00 Pulse Ox 97 09/21/24 12:00 O2 Del Method Room Air 09/21/24 12:00 O2 Flow Rate 6 09/21/24 11:14 09/20/24 09/21/24 09/21/24 22:59 06:59 14:59 Intake Total 200 / 300 213.25 / 513.25 92.75 / 92.75 Output Total 550 / 550 Balance 200 / 300 -336.75 / -36.75 92.75 / 92.75 Weight last 48 hrs Weight 51.256 kg Weight 51.256 kg Weight 48.591 kg Weight 48.591 kg Physical Exam Narrative: General: Alert and oriented to self, confused. Was able to take her medications this morning with nursing staff. Sitting up and slightly more talkative compared to yesterday. Still confused however. HEENT: Normocephalic, atraumatic, EOMI, breathing 6L oxymask Cardio: Regular rate rhythm, normal S1-S2, Respiratory: Clear to auscultation bilaterally no wheezes no rhonchi. GI: Abdomen soft, nontender, nondistended, bowel sounds + Extremities: Mild swelling noted at left hip. Urinary Catheter Management: Kelly: Cath Placed During This Visit: yes Reason for Continuing Indwelling Catheter: Perioperative Use in Selected Surgeries Urinary Catheter Date of Insertion: 09/19/24 Urinary Catheter Time of Insertion: 14:25 Data 09/21/24 05:33 09/21/24 05:33 Micro: Microbiology 09/19/24 14:20 Urine Culture - Preliminary Urine Catheterized 09/19/24 17:28 Urine Culture - Preliminary Urine,Clean Catch A&P Assessment and plan (1) Closed fracture of left hip: (2) Atrial septal aneurysm: (3) History of CVA (cerebrovascular accident) without residual deficits: (4) Hyperlipemia: Qualifiers: Hyperlipidemia type: mixed hyperlipidemia Qualified Code(s): E78.2 - Mixed hyperlipidemia Plan #Left femoral neck fracture #History of pulmonary embolism, used to be on Xarelto #History of seizures, currently on Keppra. #History of CVA #History of atrial septal aneurysm #Dementia #assisted resident #Hx of GI bleed ? Pain control ? Orthopedic surgery consulted ? Continue DVT prophylaxis with heparin SQ twice daily. Patient is at high risk of PE DVT secondary to history of such. ? As per previous discharge summary. It is indicated that on prior hospitalization Xarelto was stopped after it was continued for several years for what appears to be a DVT however it was unknown if it was provoked or unprovoked in the past. She did have a PE shortly after being taken off of Xarelto therefore long-term anticoagulation was recommended going forward. Last echo is from 2022 LVEF 65% no diagnostic regional wall motion abnormalities. ? Continue Keppra 500 twice daily ? Obtain baseline EKG, chest x-ray ? Patient unable to provide a history however denies chest pain at this time. -Orthopedic surgery consulted. ? Blood pressure elevated most likely secondary to pain. I do not believe she has hypertension. ? Continue to monitor blood pressure. May use hydralazine 5 mg IV every 6-8 hours as needed. ? I do expect her blood pressure to improve after pain medicine. - PT after surgery. She will need DVT prophylaxis after surgery. ? Check urine culture. Leukocytosis most likely reactive however patient does have acute on chronic encephalopathy. Must rule out UTI. Will check urinalysis. Will place on empiric ceftriaxone. DVT prophylaxis: Heparin SQ twice daily 09/20/2024 As per patient's son she had some sort of GI bleed situation in the last 1 or 2 years. We are awaiting records from [facility]. At that point Xarelto was stopped indefinitely. There is no sign of bleed at this time. Hemoglobin stable at 10.3. ? There is no known history of heart failure however patient's BNP was 4400 when checked yesterday evening. Chest x-ray did show pulmonary vascular congestion. Patient given Lasix 40 IV x 1. Urine output 1550 overnight. Clinically she appears to be euvolemic at this time. Echocardiogram is pending. Cardiology consulted for cardiac optimization for surgery. Tentatively surgery has been planned for 4 PM today as per nursing staff. Urinalysis did show 100 RBCs, 3+ blood. Possible traumatic insertion of Kelly. Hemoglobin is stable. Continue to monitor. Vitals are stable. Patient on 4 L oxy mask. She is a mouth breather. Patient is confused. Does follow some commands. Urinalysis suggestive of UTI. Patient was given preop antibiotics clindamycin x 2. ABG ordered and reviewed. Will await echo. Once okay from cardiac standpoint patient may proceed for femoral neck fracture repair. 09/21/2024 Potassium 3.3 today. Repleted by cardiology this morning. Speech therapy evaluated the patient and she has been switched to a dysphagia level 6 soft bite-size diet. CTA chest with the following results: 1. Evidence of segmental and subsegmental pulmonary emboli described above. 2. Several scattered mainly peripheral parenchymal opacities worse in the LEFT upper lobe. This may be infectious or inflammatory also consider septic emboli. 3. Large esophageal hiatal hernia with intrathoracic stomach. 4. Advanced chronic emphysematous changes with scattered areas of fibrosis. 5. Focal spiculated opacity RIGHT lower lobe posterior medially measuring 1.8 cm. Neoplasm not excluded. Recommend short interval follow-up chest CT and consider further evaluation with PET/CT if persistent Cardiac echo shows: Normal left ventricular size and systolic function, EF 58%no regional wall motion abnormalities. . Mild left ventricular hypertrophy. Grade I/IV diastolic dysfunction (abnormal relaxation filling pattern), normal to mildly elevated filling pressures. Trace mitral valve regurgitation. Moderate mitral annular calcification. Trace to mild aortic valve regurgitation. Moderate tricuspid valve regurgitation. Moderate pulmonary hypertension with an estimated pulmonary artery peak systolic pressure of 72 mmHg with a mean pressure of 32 mmHg There is no pericardial effusion. Patient was started on heparin drip. We will continue at this time and switch to Eliquis 2.5 twice daily at time of discharge. Will complete 48 hours of heparin as per NSTEMI protocol as well. NSTEMI: Demand ischemia versus true VA. EKG did not show any ischemic changes. Completed 48 hours of heparin. Secondary to patient's history of anemia in the past where anticoagulation had to be stopped. She was on EGD colonoscopy in [facility] last year. Discussed with son over the phone. I will hold off on placing patient on aspirin and Plavix as risk of bleeding will be higher. Still awaiting records from [facility] CTA chest also shows spiculated opacity measuring 1.8 cm. Neoplasm not excluded. PET scan recommended by radiology. Patient will need further workup going forward Question of aspiration versus infectious process and left upper lobe. Infectious inflammatory septic emboli not excluded. Echo does not show any vegetation and patient does not show stigmata of endocarditis. Low suspicion of endocarditis. Possible pneumonia? Continue IV Levaquin daily. Add vancomycin IV to cover empirically. Patient is quite hypoxic having increasing oxygen requirements. Earlier this morning she was on 15 L oxy mask. Continue to diurese with Lasix 40 IV twice daily. Patient does have evidence of diastolic heart failure. Once medically optimized may proceed to surgery. Patient not medically optimized yet. Discussed with cardiology, orthopedic surgery over the phone. Called patient's son Mr. Meng over the phone and updated him of patient's condition. He did voice to me that he will consider hospice if patient does not improve in next few days as he understands prognosis is poor with multitude of medical issues going on at this time. I called patient's as well at the nursing facility and discussed her care with him however he directed me to speak to Mr. Meng phone over the phone. Patient is confused and has underlying dementia and unable to make her own decisions. Patient's son would like to continue DNR/DNI status. He understands prognosis may be poor. We will continue to treat at this time as per above and reevaluate daily. PDMP PDMP Reviewed: Not Reviewed Attestations Medical Necessity Statement*: NSTEMI, pneumonia, spiculated lung nodule, subcapital fracture left hip, pulmonary embolism, heart failure. Patient requires continued inpatient hospital level care at this time for multiple medical issues. Diagnoses Closed fracture of left hip S72.002A Atrial septal aneurysm I25.3 History of CVA (cerebrovascular accident) without residual deficits Z86.73 Mixed hyperlipidemia E78.2 Hyperlipidemia type: mixed hyperlipidemia
[2024-09-21] MEDS: potassium chloride oral liq 20 mEq/15 mL UDC 40 MEQ PO (15:21)
[2024-09-21 19:14] LABS: Partial Thromboplastin Time 43.4 SECONDS (23.9-36.7)
[2024-09-21] MEDS: heparin 5,000 unit/mL INJ 1 mL IVP (19:35)
[2024-09-22] VITALS (8 sets, daily range): BP systolic 105–147; BP diastolic 67–88; PULSE 78–99; RESP 13–18; TEMP 36.4–36.7; O2SAT 90–96; BMI 22.0
[2024-09-22 01:37] LABS: Basophils % 0.3 %; Eosinophils # 0.1 10^3/uL (0.0-0.8); Eosinophils % 0.6 %; Hematocrit 29.5 % (36-47); Lymphocytes # 0.6 10^3/uL (0.8-4.8); Mean Corpuscular HGB Conc 29.8 g/dL (30-55); Mean Corpuscular Hemoglobin 23.4 pg (27-33); Mean Corpuscular Volume 78.5 fl (85-98); Monocytes # 1.1 10^3/uL (0.2-0.9); Monocytes % 10.6 %; Neutrophils # 8.45 10^3/uL (1.8-7.7); Neutrophils % 81.5 %; Nucleated Red Blood Cells % 0 %; Platelet Count 322 10^3/cmm (157-399); Red Blood Count 3.76 10^6/uL (3.85-5.65); Red Cell Distribution Width 16.1 % (12.1-15.1); White Blood Count 10.36 10^3/uL (3.29-11.43)
[2024-09-22 01:50] LABS: Partial Thromboplastin Time 53.4 SECONDS (23.9-36.7)
[2024-09-22 01:54] LABS: Blood Urea Nitrogen 21 mg/dL (8-23); Calcium 9.1 mg/dL (8.5-10.5); Carbon Dioxide 30 mmol/L (22-29); Chloride 97 mmol/L (98-107); Creatinine Clr Calc Pharmacy 35.9763; Glucose 128 mg/dL (65-115); Magnesium 1.9 mg/dL (1.7-2.3); Osmolality Calculated 285 mOsm/kg (285-295); Sodium 135 mmol/L (136-145)
[2024-09-22] MEDS: heparin drip 25,000 UNIT/500 ML PREMIX 19 UNIT IV (02:03)
[2024-09-22] MEDS: FUROsemide 10 mg/mL SDV 4mL 40 MG IVP ×2 (02:04→15:04)
[2024-09-22] MEDS: heparin 5,000 unit/mL INJ 1 mL IVP ×3 (02:04→22:16)
[2024-09-22 02:05] LABS: Anion Gap 11.9 (5-19); Potassium 3.9 mmol/L (3.5-5.1)
[2024-09-22] MEDS: morphine 4 mg/mL SDV 1 mL 2 MG IVP ×2 (07:20→17:50)
[2024-09-22] MEDS: polyethylene glycol 3350 Pkt 17 gm PO (07:20)
[2024-09-22] MEDS: citalopram 20 mg Tablet 10 MG PO (07:20)
[2024-09-22] MEDS: famotidine 20 mg Tablet PO (07:21)
[2024-09-22] MEDS: VANCOMYCIN ADD-Vantage 750 MG in 0.9% NaCl ADD-Vantage 250 ML 250 MG IV (07:21)
[2024-09-22 08:40] LABS: Partial Thromboplastin Time 50.7 SECONDS (23.9-36.7)
--- NOTE | 2024-09-22 08:42 | PC.SOCIAL ---
IMM Updated Updated pt's family on IMM. No questions voiced. Provided pt a copy. Initialed, dated, & timed a copy & placed in chart.
--- NOTE | 2024-09-22 10:15 | P.PN_ITS ---
<Statement entered by Cindy Cortés MD - 09/23/24 10:47> Patient was evaluated and cared for in conjunction with an advanced practice practitioner. I personally examined the patient and reviewed the chart and all pertinent data including imaging, telemetry, and laboratory results. I discussed the patient in detail with the advanced practice practitioner. Please see their note for complete H&P testing result and agreed upon plan of care for the patient. Subjective 2 Subjective: Patient was seen on rounds today. She is much more alert today. Pleasantly confused. She is not any respiratory distress. She is on nasal cannula at this time. Creatinine is normal. Vitals/I&O/Wt Last Vital Signs Temp 97.6 F 09/22/24 07:19 Pulse 78 09/22/24 08:57 Resp 18 09/22/24 08:57 BP 105/67 09/22/24 07:19 Pulse Ox 96 09/22/24 08:57 O2 Del Method Oxymask 09/22/24 08:57 O2 Flow Rate 5 09/22/24 08:57 09/21/24 09/22/24 09/22/24 22:59 06:59 14:59 Intake Total 659.067 / 991.817 404.933 / 1396.750 442 / 442 Output Total 1000 / 1000 1350 / 1350 Balance -340.933 / -8.183 404.933 / 396.750 -908 / -908 Weight last 48 hrs Weight 113 lb Weight 113 lb Weight 113 lb Physical Exam 2 Narrative: General: No apparent distress, healthy appearing, well nourished HENMT: normoceophalic Muskuloskeletal: Full ROM Lymphatic: no lymphedema noted Respiratory: Normal respiratory effort, clear throughout slightly diminished bilateral lower lobes, no use of accessory muscles Cardio: No JVD, regular rate, regular rhythm, S1 S2 normal, no murmurs, peripheral pulses 2+ radial palpated bilaterally Extremities: Full ROM, normal, normal capillary refill, no cyanosis or edema Neuro: Alert and oriented x4, no focal motor deficits Psych: Affect normal, denies suicidal ideation, mental status grossly normal Skin: No rashes or lesions noted, no wounds Urinary Catheter Management: Kelly: Cath Placed During This Visit: yes Reason for Continuing Indwelling Catheter: Accurate Measurement of Urinary Output in Critically Ill Patients Urinary Catheter Date of Insertion: 09/19/24 Urinary Catheter Time of Insertion: 14:25 Data 09/22/24 01:27 09/22/24 01:27 Micro: Microbiology 09/19/24 14:20 Urine Culture - Preliminary Urine Catheterized 09/19/24 17:28 Urine Culture - Preliminary Urine,Clean Catch A&P Assessment and plan (1) History of pulmonary embolism: (2) History of DVT (deep vein thrombosis): (3) Subcapital fracture of left hip: Qualifiers: Encounter type: initial encounter Fracture type: closed Qualified Code(s): S72.012A - Unspecified intracapsular fracture of left femur, initial encounter for closed fracture Plan Patient is clinically improving. Will continue diuresis at this time and continue to monitor patient's response. PDMP PDMP Reviewed: Not Reviewed Attestations 2 Medical Necessity Statement*: Deferred to primary. Coding Level of Care Code Acute Code for Chg Fwd Diagnoses History of pulmonary embolism Z86.711 History of DVT (deep vein thrombosis) Z86.718 Closed subcapital fracture of left femur, initial encounter S72.012A Encounter type: initial encounter Fracture type: closed
--- NOTE | 2024-09-22 11:17 | P.PN_ITS ---
Subjective 2 Subjective: Pleasantly confused. Patient able to answer questions this morning. She is not oriented to place or time however is talkative this morning. Just had a bath. Is on 5 L nasal cannula. Currently on heparin drip. Hemoglobin stable. Awaiting records from [facility] Appears more euvolemic. Laying flat in bed. Denies any leg pain at this time. Vitals/I&O/Wt Last Vital Signs Temp 97.6 F 09/22/24 07:19 Pulse 78 09/22/24 08:57 Resp 18 09/22/24 08:57 BP 105/67 09/22/24 07:19 Pulse Ox 96 09/22/24 08:57 O2 Del Method Oxymask 09/22/24 08:57 O2 Flow Rate 5 09/22/24 08:57 09/21/24 09/22/24 09/22/24 22:59 06:59 14:59 Intake Total 659.067 / 991.817 404.933 / 1396.750 442 / 442 Output Total 1000 / 1000 1350 / 1350 Balance -340.933 / -8.183 404.933 / 396.750 -908 / -908 Weight last 48 hrs Weight 51.256 kg Weight 51.256 kg Weight 51.256 kg Physical Exam 2 Narrative: General: Alert and oriented to self,, pleasantly confused. HEENT: Normocephalic, atraumatic, EOMI, breathing 6L oxymask Cardio: Regular rate rhythm, normal S1-S2, Respiratory: Clear to auscultation bilaterally no wheezes no rhonchi. GI: Abdomen soft, nontender, nondistended, bowel sounds + Extremities: Mild swelling noted at left hip. Urinary Catheter Management: Kelly: Cath Placed During This Visit: yes Reason for Continuing Indwelling Catheter: Accurate Measurement of Urinary Output in Critically Ill Patients Urinary Catheter Date of Insertion: 09/19/24 Urinary Catheter Time of Insertion: 14:25 Data 09/22/24 01:27 09/22/24 01:27 Micro: Microbiology 09/19/24 14:20 Urine Culture - Preliminary Urine Catheterized 09/19/24 17:28 Urine Culture - Preliminary Urine,Clean Catch A&P Assessment and plan (1) Closed fracture of left hip: (2) Atrial septal aneurysm: (3) History of CVA (cerebrovascular accident) without residual deficits: (4) Hyperlipemia: Qualifiers: Hyperlipidemia type: mixed hyperlipidemia Qualified Code(s): E78.2 - Mixed hyperlipidemia Plan #Left femoral neck fracture #History of pulmonary embolism, used to be on Xarelto #History of seizures, currently on Keppra. #History of CVA #History of atrial septal aneurysm #Dementia #skilled nursing resident #Hx of GI bleed ? Pain control ? Orthopedic surgery consulted ? Continue DVT prophylaxis with heparin SQ twice daily. Patient is at high risk of PE DVT secondary to history of such. ? As per previous discharge summary. It is indicated that on prior hospitalization Xarelto was stopped after it was continued for several years for what appears to be a DVT however it was unknown if it was provoked or unprovoked in the past. She did have a PE shortly after being taken off of Xarelto therefore long-term anticoagulation was recommended going forward. Last echo is from 2022 LVEF 65% no diagnostic regional wall motion abnormalities. ? Continue Keppra 500 twice daily ? Obtain baseline EKG, chest x-ray ? Patient unable to provide a history however denies chest pain at this time. -Orthopedic surgery consulted. ? Blood pressure elevated most likely secondary to pain. I do not believe she has hypertension. ? Continue to monitor blood pressure. May use hydralazine 5 mg IV every 6-8 hours as needed. ? I do expect her blood pressure to improve after pain medicine. - PT after surgery. She will need DVT prophylaxis after surgery. ? Check urine culture. Leukocytosis most likely reactive however patient does have acute on chronic encephalopathy. Must rule out UTI. Will check urinalysis. Will place on empiric ceftriaxone. DVT prophylaxis: Heparin SQ twice daily 09/20/2024 As per patient's son she had some sort of GI bleed situation in the last 1 or 2 years. We are awaiting records from [facility]. At that point Xarelto was stopped indefinitely. There is no sign of bleed at this time. Hemoglobin stable at 10.3. ? There is no known history of heart failure however patient's BNP was 4400 when checked yesterday evening. Chest x-ray did show pulmonary vascular congestion. Patient given Lasix 40 IV x 1. Urine output 1550 overnight. Clinically she appears to be euvolemic at this time. Echocardiogram is pending. Cardiology consulted for cardiac optimization for surgery. Tentatively surgery has been planned for 4 PM today as per nursing staff. Urinalysis did show 100 RBCs, 3+ blood. Possible traumatic insertion of Kelly. Hemoglobin is stable. Continue to monitor. Vitals are stable. Patient on 4 L oxy mask. She is a mouth breather. Patient is confused. Does follow some commands. Urinalysis suggestive of UTI. Patient was given preop antibiotics clindamycin x 2. ABG ordered and reviewed. Will await echo. Once okay from cardiac standpoint patient may proceed for femoral neck fracture repair. 09/21/2024 Potassium 3.3 today. Repleted by cardiology this morning. Speech therapy evaluated the patient and she has been switched to a dysphagia level 6 soft bite-size diet. CTA chest with the following results: 1. Evidence of segmental and subsegmental pulmonary emboli described above. 2. Several scattered mainly peripheral parenchymal opacities worse in the LEFT upper lobe. This may be infectious or inflammatory also consider septic emboli. 3. Large esophageal hiatal hernia with intrathoracic stomach. 4. Advanced chronic emphysematous changes with scattered areas of fibrosis. 5. Focal spiculated opacity RIGHT lower lobe posterior medially measuring 1.8 cm. Neoplasm not excluded. Recommend short interval follow-up chest CT and consider further evaluation with PET/CT if persistent Cardiac echo shows: Normal left ventricular size and systolic function, EF 58%no regional wall motion abnormalities. . Mild left ventricular hypertrophy. Grade I/IV diastolic dysfunction (abnormal relaxation filling pattern), normal to mildly elevated filling pressures. Trace mitral valve regurgitation. Moderate mitral annular calcification. Trace to mild aortic valve regurgitation. Moderate tricuspid valve regurgitation. Moderate pulmonary hypertension with an estimated pulmonary artery peak systolic pressure of 72 mmHg with a mean pressure of 32 mmHg There is no pericardial effusion. Patient was started on heparin drip. We will continue at this time and switch to Eliquis 2.5 twice daily at time of discharge. Will complete 48 hours of heparin as per NSTEMI protocol as well. NSTEMI: Demand ischemia versus true [place]. EKG did not show any ischemic changes. Completed 48 hours of heparin. Secondary to patient's history of anemia in the past where anticoagulation had to be stopped. She was on EGD colonoscopy in [facility] last year. Discussed with son over the phone. I will hold off on placing patient on aspirin and Plavix as risk of bleeding will be higher. Still awaiting records from [facility] CTA chest also shows spiculated opacity measuring 1.8 cm. Neoplasm not excluded. PET scan recommended by radiology. Patient will need further workup going forward Question of aspiration versus infectious process and left upper lobe. Infectious inflammatory septic emboli not excluded. Echo does not show any vegetation and patient does not show stigmata of endocarditis. Low suspicion of endocarditis. Possible pneumonia? Continue IV Levaquin daily. Add vancomycin IV to cover empirically. Patient is quite hypoxic having increasing oxygen requirements. Earlier this morning she was on 15 L oxy mask. Continue to diurese with Lasix 40 IV twice daily. Patient does have evidence of diastolic heart failure. Once medically optimized may proceed to surgery. Patient not medically optimized yet. Discussed with cardiology, orthopedic surgery over the phone. Called patient's son Mr. Meng over the phone and updated him of patient's condition. He did voice to me that he will consider hospice if patient does not improve in next few days as he understands prognosis is poor with multitude of medical issues going on at this time. I called patient's as well at the nursing facility and discussed her care with him however he directed me to speak to Mr. Meng phone over the phone. Patient is confused and has underlying dementia and unable to make her own decisions. Patient's son would like to continue DNR/DNI status. He understands prognosis may be poor. We will continue to treat at this time as per above and reevaluate daily. 09/22/2024 Patient appears to be more euvolemic today. Currently on Lasix 40 IV twice daily. Oxygen 5 L nasal cannula at this time. Vitals are stable Hemoglobin is stable Continue heparin drip. Continue IV antibiotics. Patient on dysphagia level 6 diet soft and bite-size. Awaiting cardiac clearance for surgery. Patient has improved compared to admission. Will be updating patient's son over the phone. Acute encephalopathy seems to be resolving. Patient does have underlying dementia. Was hallucinating earlier seeing snakes on the wall. PDMP PDMP Reviewed: Not Reviewed Attestations 2 Medical Necessity Statement*: Continue IV antibiotics and to treat for PE. Patient has a hip fracture and will need to be operated upon once optimized from cardiology standpoint. Diagnoses Closed fracture of left hip S72.002A Atrial septal aneurysm I25.3 History of CVA (cerebrovascular accident) without residual deficits Z86.73 Mixed hyperlipidemia E78.2 Hyperlipidemia type: mixed hyperlipidemia
[2024-09-22] MEDS: levofloxacin-dextrose 5 % 500 MG/100 ML PREMIX 100 MG IV (11:49)
[2024-09-22] MEDS: levETIRAcetam 500 MG/100 ML PREMIX 400 MG IV ×2 (11:50→23:51)
[2024-09-22 15:33] LABS: Partial Thromboplastin Time 62.8 SECONDS (23.9-36.7)
[2024-09-22] MEDS: heparin drip 25,000 UNIT/500 ML PREMIX 20 UNIT IV (15:42)
--- NOTE | 2024-09-22 21:26 | PC.NURSE ---
patient bed alarm went off, nurse and teacher vocal in room, patient pulled iv in left forearm out, catheter intact upon removal. patient put back to bed bed alarm in place. will restart iv.
[2024-09-22 21:52] LABS: Partial Thromboplastin Time 42.8 SECONDS (23.9-36.7)
[2024-09-23] MEDS: FUROsemide 10 mg/mL SDV 4mL 40 MG IVP (02:55)
[2024-09-23] MEDS: heparin drip 25,000 UNIT/500 ML PREMIX 22 UNIT IV (03:12)
[2024-09-23 04:00] VITALS: BP 105/65; PULSE 67; RESP 16; TEMP 36.6; O2SAT 98
[2024-09-23 04:20] LABS: Basophils % 0.4 %; Eosinophils # 0.1 10^3/uL (0.0-0.8); Eosinophils % 1.6 %; Hematocrit 30.3 % (36-47); Lymphocytes # 0.8 10^3/uL (0.8-4.8); Lymphocytes % 10.3 %; Mean Corpuscular Volume 79.9 fl (85-98); Mean Platelet Volume 9.8 fL (7.4-10.4); Monocytes # 0.9 10^3/uL (0.2-0.9); Neutrophils # 5.66 10^3/uL (1.8-7.7); Neutrophils % 74.5 %; Nucleated Red Blood Cells % 0 %; Platelet Count 325 10^3/cmm (157-399); Red Blood Count 3.79 10^6/uL (3.85-5.65); Red Cell Distribution Width 16.1 % (12.1-15.1); White Blood Count 7.59 10^3/uL (3.29-11.43)
[2024-09-23 04:40] LABS: Anion Gap 13.2 (5-19); Blood Urea Nitrogen 20 mg/dL (8-23); Calcium 9.2 mg/dL (8.5-10.5); Carbon Dioxide 31 mmol/L (22-29); Chloride 96 mmol/L (98-107); Creatinine Clr Calc Pharmacy 35.9763; Glucose 112 mg/dL (65-115); Osmolality Calculated 287 mOsm/kg (285-295); Potassium 3.2 mmol/L (3.5-5.1); Sodium 137 mmol/L (136-145)
[2024-09-23 04:44] LABS: Partial Thromboplastin Time 110.1 SECONDS (23.9-36.7)
[2024-09-23 07:48] VITALS: BP 142/72; PULSE 86; RESP 16; TEMP 36.7; O2SAT 95
[2024-09-23] MEDS: polyethylene glycol 3350 Pkt 17 gm PO (08:21)
[2024-09-23] MEDS: citalopram 20 mg Tablet 10 MG PO (08:21)
[2024-09-23] MEDS: famotidine 20 mg Tablet PO (08:21)
[2024-09-23] MEDS: VANCOMYCIN ADD-Vantage 750 MG in 0.9% NaCl ADD-Vantage 250 ML 250 MG IV (08:22)
[2024-09-23 10:00] VITALS: PULSE 61; RESP 18; O2SAT 93
[2024-09-23] MEDS: levETIRAcetam 500 MG/100 ML PREMIX 400 MG IV ×2 (10:41→22:31)
--- NOTE | 2024-09-23 11:02 | P.PN_ITS ---
Subjective 2 Subjective: Appear to be laying in the bed she is little bit sleepy today and fatigued but breathing much better Vitals/I&O/Wt Last Vital Signs Temp 98.0 F 09/23/24 07:48 Pulse 86 09/23/24 07:48 Resp 16 09/23/24 07:48 BP 142/72 09/23/24 07:48 Pulse Ox 95 09/23/24 07:48 O2 Del Method Nasal Cannula 09/23/24 07:48 O2 Flow Rate 5 09/23/24 07:36 09/22/24 09/23/24 09/23/24 22:59 06:59 14:59 Intake Total 439.667 / 1129.667 262.067 / 1391.734 250 / 250 Output Total 1300 / 2650 1225 / 3875 Balance -860.333 / -1520.333 -962.933 / -2483.266 250 / 250 Weight last 48 hrs Weight 111 lb 3.2 oz Weight 113 lb Physical Exam 2 Const: OTHER: GENERAL: Patient is sleepy lethargic . HEART: Regular S1 and S2. No murmur, rub or gallop. LUNGS: Clear to auscultate bilaterally. CENTRAL NERVOUS SYSTEM: Grossly nonfocal. EXTREMITIES: Lower extremities with out edema bilaterally. Urinary Catheter Management: Kelly: Cath Placed During This Visit: yes Reason for Continuing Indwelling Catheter: Other Urinary Catheter Date of Insertion: 09/19/24 Urinary Catheter Time of Insertion: 14:25 Data 09/23/24 04:08 09/23/24 04:08 Micro: Microbiology 09/19/24 14:20 Urine Culture - Final Urine Catheterized 09/19/24 17:28 Urine Culture - Final Urine,Clean Catch A&P Assessment and plan (1) History of pulmonary embolism: (2) History of DVT (deep vein thrombosis): (3) Subcapital fracture of left hip: Qualifiers: Encounter type: initial encounter Fracture type: closed Qualified Code(s): S72.012A - Unspecified intracapsular fracture of left femur, initial encounter for closed fracture (4) Diastolic heart failure: Plan Patient appeared to be compensated now I will reduce Lasix to once a day and switch to p.o. Add beta-mey Add RADHA inhibitor PDMP PDMP Reviewed: Not Reviewed Attestations 2 Medical Necessity Statement*: As per medicine Coding Level of Care Code Acute Code for Chg Fwd Diagnoses History of pulmonary embolism Z86.711 History of DVT (deep vein thrombosis) Z86.718 Closed subcapital fracture of left femur, initial encounter S72.012A Encounter type: initial encounter Fracture type: closed Diastolic heart failure I50.30
[2024-09-23] MEDS: sodium chloride 0.9% 250 ML IV (11:12)
[2024-09-23 11:37] VITALS: BP 164/76; PULSE 63; RESP 14; TEMP 36.6; O2SAT 97
[2024-09-23 12:11] LABS: Partial Thromboplastin Time 81.4 SECONDS (23.9-36.7)
--- NOTE | 2024-09-23 12:26 | PM.PN ---
Subjective Subjective: Seen this morning. No acute events overnight. 2.5 L urine output in last 24 hours. Patient appears to be slightly dehydrated this morning. She is breathing a lot better. On 5 L nasal cannula. Pleasantly confused. However states she is sleepy this morning. Earlier nursing staff reported the patient was able to sit up on the side of the bed by herself. Vitals/I&O/Wt Last Vital Signs Temp 97.9 F 09/23/24 11:37 Pulse 63 09/23/24 11:37 Resp 14 09/23/24 11:37 BP 164/76 09/23/24 11:37 Pulse Ox 97 09/23/24 11:37 O2 Del Method Nasal Cannula 09/23/24 11:37 O2 Flow Rate 5 09/23/24 07:36 09/22/24 09/23/24 09/23/24 22:59 06:59 14:59 Intake Total 439.667 / 1129.667 262.067 / 1391.734 350 / 350 Output Total 1300 / 2650 1225 / 3875 Balance -860.333 / -1520.333 -962.933 / -2483.266 350 / 350 Weight last 48 hrs Weight 50.439 kg Weight 51.256 kg Physical Exam Narrative: General: Alert and oriented to self,, pleasantly confused. HEENT: Normocephalic, atraumatic, EOMI, breathing 6L oxymask Cardio: Regular rate rhythm, normal S1-S2, Respiratory: Clear to auscultation bilaterally no wheezes no rhonchi. GI: Abdomen soft, nontender, nondistended, bowel sounds + Extremities: Mild swelling noted at left hip. Urinary Catheter Management: Kelly: Cath Placed During This Visit: yes Reason for Continuing Indwelling Catheter: Other Urinary Catheter Date of Insertion: 09/19/24 Urinary Catheter Time of Insertion: 14:25 Data 09/23/24 04:08 09/23/24 04:08 Micro: Microbiology 09/19/24 14:20 Urine Culture - Final Urine Catheterized 09/19/24 17:28 Urine Culture - Final Urine,Clean Catch A&P Assessment and plan (1) Closed fracture of left hip: (2) Atrial septal aneurysm: (3) History of CVA (cerebrovascular accident) without residual deficits: (4) Hyperlipemia: Qualifiers: Hyperlipidemia type: mixed hyperlipidemia Qualified Code(s): E78.2 - Mixed hyperlipidemia Plan #Left femoral neck fracture #History of pulmonary embolism, used to be on Xarelto #History of seizures, currently on Keppra. #History of CVA #History of atrial septal aneurysm #Dementia #[facility] resident #Hx of GI bleed ? Pain control ? Orthopedic surgery consulted ? Continue DVT prophylaxis with heparin SQ twice daily. Patient is at high risk of PE DVT secondary to history of such. ? As per previous discharge summary. It is indicated that on prior hospitalization Xarelto was stopped after it was continued for several years for what appears to be a DVT however it was unknown if it was provoked or unprovoked in the past. She did have a PE shortly after being taken off of Xarelto therefore long-term anticoagulation was recommended going forward. Last echo is from 2022 LVEF 65% no diagnostic regional wall motion abnormalities. ? Continue Keppra 500 twice daily ? Obtain baseline EKG, chest x-ray ? Patient unable to provide a history however denies chest pain at this time. -Orthopedic surgery consulted. ? Blood pressure elevated most likely secondary to pain. I do not believe she has hypertension. ? Continue to monitor blood pressure. May use hydralazine 5 mg IV every 6-8 hours as needed. ? I do expect her blood pressure to improve after pain medicine. - PT after surgery. She will need DVT prophylaxis after surgery. ? Check urine culture. Leukocytosis most likely reactive however patient does have acute on chronic encephalopathy. Must rule out UTI. Will check urinalysis. Will place on empiric ceftriaxone. DVT prophylaxis: Heparin SQ twice daily 09/20/2024 As per patient's son she had some sort of GI bleed situation in the last 1 or 2 years. We are awaiting records from [facility]. At that point Xarelto was stopped indefinitely. There is no sign of bleed at this time. Hemoglobin stable at 10.3. ? There is no known history of heart failure however patient's BNP was 4400 when checked yesterday evening. Chest x-ray did show pulmonary vascular congestion. Patient given Lasix 40 IV x 1. Urine output 1550 overnight. Clinically she appears to be euvolemic at this time. Echocardiogram is pending. Cardiology consulted for cardiac optimization for surgery. Tentatively surgery has been planned for 4 PM today as per nursing staff. Urinalysis did show 100 RBCs, 3+ blood. Possible traumatic insertion of Kelly. Hemoglobin is stable. Continue to monitor. Vitals are stable. Patient on 4 L oxy mask. She is a mouth breather. Patient is confused. Does follow some commands. Urinalysis suggestive of UTI. Patient was given preop antibiotics clindamycin x 2. ABG ordered and reviewed. Will await echo. Once okay from cardiac standpoint patient may proceed for femoral neck fracture repair. 09/21/2024 Potassium 3.3 today. Repleted by cardiology this morning. Speech therapy evaluated the patient and she has been switched to a dysphagia level 6 soft bite-size diet. CTA chest with the following results: 1. Evidence of segmental and subsegmental pulmonary emboli described above. 2. Several scattered mainly peripheral parenchymal opacities worse in the LEFT upper lobe. This may be infectious or inflammatory also consider septic emboli. 3. Large esophageal hiatal hernia with intrathoracic stomach. 4. Advanced chronic emphysematous changes with scattered areas of fibrosis. 5. Focal spiculated opacity RIGHT lower lobe posterior medially measuring 1.8 cm. Neoplasm not excluded. Recommend short interval follow-up chest CT and consider further evaluation with PET/CT if persistent Cardiac echo shows: Normal left ventricular size and systolic function, EF 58%no regional wall motion abnormalities. . Mild left ventricular hypertrophy. Grade I/IV diastolic dysfunction (abnormal relaxation filling pattern), normal to mildly elevated filling pressures. Trace mitral valve regurgitation. Moderate mitral annular calcification. Trace to mild aortic valve regurgitation. Moderate tricuspid valve regurgitation. Moderate pulmonary hypertension with an estimated pulmonary artery peak systolic pressure of 72 mmHg with a mean pressure of 32 mmHg There is no pericardial effusion. Patient was started on heparin drip. We will continue at this time and switch to Eliquis 2.5 twice daily at time of discharge. Will complete 48 hours of heparin as per NSTEMI protocol as well. NSTEMI: Demand ischemia versus true [place]. EKG did not show any ischemic changes. Completed 48 hours of heparin. Secondary to patient's history of anemia in the past where anticoagulation had to be stopped. She was on EGD colonoscopy in [facility] last year. Discussed with son over the phone. I will hold off on placing patient on aspirin and Plavix as risk of bleeding will be higher. Still awaiting records from [facility] CTA chest also shows spiculated opacity measuring 1.8 cm. Neoplasm not excluded. PET scan recommended by radiology. Patient will need further workup going forward Question of aspiration versus infectious process and left upper lobe. Infectious inflammatory septic emboli not excluded. Echo does not show any vegetation and patient does not show stigmata of endocarditis. Low suspicion of endocarditis. Possible pneumonia? Continue IV Levaquin daily. Add vancomycin IV to cover empirically. Patient is quite hypoxic having increasing oxygen requirements. Earlier this morning she was on 15 L oxy mask. Continue to diurese with Lasix 40 IV twice daily. Patient does have evidence of diastolic heart failure. Once medically optimized may proceed to surgery. Patient not medically optimized yet. Discussed with cardiology, orthopedic surgery over the phone. Called patient's son Mr. Meng over the phone and updated him of patient's condition. He did voice to me that he will consider hospice if patient does not improve in next few days as he understands prognosis is poor with multitude of medical issues going on at this time. I called patient's as well at the nursing facility and discussed her care with him however he directed me to speak to Mr. Meng phone over the phone. Patient is confused and has underlying dementia and unable to make her own decisions. Patient's son would like to continue DNR/DNI status. He understands prognosis may be poor. We will continue to treat at this time as per above and reevaluate daily. 09/22/2024 Patient appears to be more euvolemic today. Currently on Lasix 40 IV twice daily. Oxygen 5 L nasal cannula at this time. Vitals are stable Hemoglobin is stable Continue heparin drip. Continue IV antibiotics. Patient on dysphagia level 6 diet soft and bite-size. Awaiting cardiac clearance for surgery. Patient has improved compared to admission. Will be updating patient's son over the phone. Acute encephalopathy seems to be resolving. Patient does have underlying dementia. Was hallucinating earlier seeing snakes on the wall. 09/23/[address] from [facility]. On 5L nasal cannula. This may be patient's new baseline. Order normal saline to 50 cc bolus x 1. Patient appears to be dehydrated this morning Will switch Lasix to once daily today and switch to oral as per cardiology recommendations ? Continue heparin drip in anticipation of hip surgery. ? Once optimized from cardiology standpoint patient may proceed for hip fracture repair. - Patient improving. ? RADHA inhibitor beta-mey to be added. ? Will update patient son over the phone today. I was unable to get a hold of him yesterday. PDMP PDMP Reviewed: Not Reviewed Attestations Medical Necessity Statement*: Continue IV antibiotics and to treat for PE. Patient has a hip fracture and will need to be operated upon once optimized from cardiology standpoint. Diagnoses Closed fracture of left hip S72.002A Atrial septal aneurysm I25.3 History of CVA (cerebrovascular accident) without residual deficits Z86.73 Mixed hyperlipidemia E78.2 Hyperlipidemia type: mixed hyperlipidemia
[2024-09-23] MEDS: levofloxacin-dextrose 5 % 500 MG/100 ML PREMIX 100 MG IV (13:18)
[2024-09-23 16:00] VITALS: BP 141/72; PULSE 74; RESP 15; TEMP 36.7; O2SAT 94
[2024-09-23 19:50] LABS: Partial Thromboplastin Time 72.2 SECONDS (23.9-36.7)
[2024-09-23 20:00] VITALS: BP 158/73; PULSE 67; RESP 18; TEMP 36.5; O2SAT 94
[2024-09-24] VITALS (7 sets, daily range): BP systolic 109–150; BP diastolic 54–77; PULSE 49–91; RESP 14–18; TEMP 36.4–36.9; O2SAT 90–97
[2024-09-24 01:16] LABS: Basophils % 0.4 %; Eosinophils # 0.3 10^3/uL (0.0-0.8); Eosinophils % 3.5 %; Hematocrit 31.4 % (36-47); Lymphocytes # 0.7 10^3/uL (0.8-4.8); Lymphocytes % 9.1 %; Mean Corpuscular HGB Conc 29.3 g/dL (30-55); Mean Corpuscular Hemoglobin 23.5 pg (27-33); Mean Corpuscular Volume 80.1 fl (85-98); Mean Platelet Volume 9.6 fL (7.4-10.4); Monocytes # 0.8 10^3/uL (0.2-0.9); Monocytes % 10.3 %; Neutrophils # 5.67 10^3/uL (1.8-7.7); Neutrophils % 75.5 %; Nucleated Red Blood Cells % 0 %; Platelet Count 364 10^3/cmm (157-399); Red Blood Count 3.92 10^6/uL (3.85-5.65); Red Cell Distribution Width 16.1 % (12.1-15.1)
[2024-09-24 01:28] LABS: Partial Thromboplastin Time 65.5 SECONDS (23.9-36.7)
[2024-09-24 01:34] LABS: Anion Gap 12.2 (5-19); Blood Urea Nitrogen 20 mg/dL (8-23); Calcium 9.3 mg/dL (8.5-10.5); Carbon Dioxide 32 mmol/L (22-29); Chloride 99 mmol/L (98-107); Creatinine Clr Calc Pharmacy 35.7303; Glucose 113 mg/dL (65-115); Osmolality Calculated 293 mOsm/kg (285-295); Potassium 3.2 mmol/L (3.5-5.1); Sodium 140 mmol/L (136-145)
[2024-09-24] MEDS: heparin drip 25,000 UNIT/500 ML PREMIX 18 UNIT IV (05:50)
[2024-09-24 07:03] LABS: Partial Thromboplastin Time 69.6 SECONDS (23.9-36.7)
[2024-09-24] MEDS: famotidine 20 mg Tablet PO (09:30)
[2024-09-24] MEDS: FUROsemide 40 mg Tablet PO (09:30)
[2024-09-24] MEDS: metoprolol succinate ER (24 HR) 25 mg Tablet 12.5 MG PO (09:31)
[2024-09-24] MEDS: citalopram 20 mg Tablet 10 MG PO (09:32)
[2024-09-24] MEDS: polyethylene glycol 3350 Pkt 17 gm PO (09:32)
[2024-09-24] MEDS: VANCOMYCIN ADD-Vantage 750 MG in 0.9% NaCl ADD-Vantage 250 ML 250 MG IV (09:33)
[2024-09-24] MEDS: levETIRAcetam 500 MG/100 ML PREMIX 400 MG IV (10:27)
[2024-09-24 12:59] LABS: Partial Thromboplastin Time 66.4 SECONDS (23.9-36.7)
[2024-09-24] MEDS: levofloxacin-dextrose 5 % 500 MG/100 ML PREMIX 100 MG IV (13:00)
--- NOTE | 2024-09-24 13:06 | PM.PN ---
Subjective Subjective: Seen this morning. No acute events overnight. Vitals/I&O/Wt Last Vital Signs Temp 97.5 F L 09/24/24 11:21 Pulse 49 L 09/24/24 11:21 Resp 18 09/24/24 11:21 BP 109/54 09/24/24 11:21 Pulse Ox 95 09/24/24 11:21 O2 Del Method Nasal Cannula 09/24/24 11:21 O2 Flow Rate 4 09/24/24 09:19 09/23/24 09/24/24 09/24/24 22:59 06:59 14:59 Intake Total 205.9 / 1047.767 195 / 1242.767 736.4 / 736.4 Output Total 675 / 675 100 / 775 Balance -469.1 / 372.767 95 / 467.767 736.4 / 736.4 Weight last 48 hrs Weight 51.846 kg Weight 50.439 kg Physical Exam Narrative: General: Alert and oriented to self,, pleasantly confused. HEENT: Normocephalic, atraumatic, EOMI, breathing 6L oxymask Cardio: Regular rate rhythm, normal S1-S2, Respiratory: Clear to auscultation bilaterally no wheezes no rhonchi. GI: Abdomen soft, nontender, nondistended, bowel sounds + Extremities: Mild swelling noted at left hip. Urinary Catheter Management: Kelly: Cath Placed During This Visit: yes Reason for Continuing Indwelling Catheter: Required Immobilization for Trauma or Surgery or Anesthesia Urinary Catheter Date of Insertion: 09/19/24 Urinary Catheter Time of Insertion: 14:25 Data 09/24/24 01:05 09/24/24 01:05 A&P Assessment and plan (1) Closed fracture of left hip: (2) Atrial septal aneurysm: (3) History of CVA (cerebrovascular accident) without residual deficits: (4) Hyperlipemia: Qualifiers: Hyperlipidemia type: mixed hyperlipidemia Qualified Code(s): E78.2 - Mixed hyperlipidemia Plan #Left femoral neck fracture #History of pulmonary embolism, used to be on Xarelto #History of seizures, currently on Keppra. #History of CVA #History of atrial septal aneurysm #Dementia #assisted resident #Hx of GI bleed ? Pain control ? Orthopedic surgery consulted ? Continue DVT prophylaxis with heparin SQ twice daily. Patient is at high risk of PE DVT secondary to history of such. ? As per previous discharge summary. It is indicated that on prior hospitalization Xarelto was stopped after it was continued for several years for what appears to be a DVT however it was unknown if it was provoked or unprovoked in the past. She did have a PE shortly after being taken off of Xarelto therefore long-term anticoagulation was recommended going forward. Last echo is from 2022 LVEF 65% no diagnostic regional wall motion abnormalities. ? Continue Keppra 500 twice daily ? Obtain baseline EKG, chest x-ray ? Patient unable to provide a history however denies chest pain at this time. -Orthopedic surgery consulted. ? Blood pressure elevated most likely secondary to pain. I do not believe she has hypertension. ? Continue to monitor blood pressure. May use hydralazine 5 mg IV every 6-8 hours as needed. ? I do expect her blood pressure to improve after pain medicine. - PT after surgery. She will need DVT prophylaxis after surgery. ? Check urine culture. Leukocytosis most likely reactive however patient does have acute on chronic encephalopathy. Must rule out UTI. Will check urinalysis. Will place on empiric ceftriaxone. DVT prophylaxis: Heparin SQ twice daily 09/20/2024 As per patient's son she had some sort of GI bleed situation in the last 1 or 2 years. We are awaiting records from [facility]. At that point Xarelto was stopped indefinitely. There is no sign of bleed at this time. Hemoglobin stable at 10.3. ? There is no known history of heart failure however patient's BNP was 4400 when checked yesterday evening. Chest x-ray did show pulmonary vascular congestion. Patient given Lasix 40 IV x 1. Urine output 1550 overnight. Clinically she appears to be euvolemic at this time. Echocardiogram is pending. Cardiology consulted for cardiac optimization for surgery. Tentatively surgery has been planned for 4 PM today as per nursing staff. Urinalysis did show 100 RBCs, 3+ blood. Possible traumatic insertion of Kelly. Hemoglobin is stable. Continue to monitor. Vitals are stable. Patient on 4 L oxy mask. She is a mouth breather. Patient is confused. Does follow some commands. Urinalysis suggestive of UTI. Patient was given preop antibiotics clindamycin x 2. ABG ordered and reviewed. Will await echo. Once okay from cardiac standpoint patient may proceed for femoral neck fracture repair. 09/21/2024 Potassium 3.3 today. Repleted by cardiology this morning. Speech therapy evaluated the patient and she has been switched to a dysphagia level 6 soft bite-size diet. CTA chest with the following results: 1. Evidence of segmental and subsegmental pulmonary emboli described above. 2. Several scattered mainly peripheral parenchymal opacities worse in the LEFT upper lobe. This may be infectious or inflammatory also consider septic emboli. 3. Large esophageal hiatal hernia with intrathoracic stomach. 4. Advanced chronic emphysematous changes with scattered areas of fibrosis. 5. Focal spiculated opacity RIGHT lower lobe posterior medially measuring 1.8 cm. Neoplasm not excluded. Recommend short interval follow-up chest CT and consider further evaluation with PET/CT if persistent Cardiac echo shows: Normal left ventricular size and systolic function, EF 58%no regional wall motion abnormalities. . Mild left ventricular hypertrophy. Grade I/IV diastolic dysfunction (abnormal relaxation filling pattern), normal to mildly elevated filling pressures. Trace mitral valve regurgitation. Moderate mitral annular calcification. Trace to mild aortic valve regurgitation. Moderate tricuspid valve regurgitation. Moderate pulmonary hypertension with an estimated pulmonary artery peak systolic pressure of 72 mmHg with a mean pressure of 32 mmHg There is no pericardial effusion. Patient was started on heparin drip. We will continue at this time and switch to Eliquis 2.5 twice daily at time of discharge. Will complete 48 hours of heparin as per NSTEMI protocol as well. NSTEMI: Demand ischemia versus true MN. EKG did not show any ischemic changes. Completed 48 hours of heparin. Secondary to patient's history of anemia in the past where anticoagulation had to be stopped. She was on EGD colonoscopy in [facility] last year. Discussed with son over the phone. I will hold off on placing patient on aspirin and Plavix as risk of bleeding will be higher. Still awaiting records from [facility] CTA chest also shows spiculated opacity measuring 1.8 cm. Neoplasm not excluded. PET scan recommended by radiology. Patient will need further workup going forward Question of aspiration versus infectious process and left upper lobe. Infectious inflammatory septic emboli not excluded. Echo does not show any vegetation and patient does not show stigmata of endocarditis. Low suspicion of endocarditis. Possible pneumonia? Continue IV Levaquin daily. Add vancomycin IV to cover empirically. Patient is quite hypoxic having increasing oxygen requirements. Earlier this morning she was on 15 L oxy mask. Continue to diurese with Lasix 40 IV twice daily. Patient does have evidence of diastolic heart failure. Once medically optimized may proceed to surgery. Patient not medically optimized yet. Discussed with cardiology, orthopedic surgery over the phone. Called patient's son Mr. Meng over the phone and updated him of patient's condition. He did voice to me that he will consider hospice if patient does not improve in next few days as he understands prognosis is poor with multitude of medical issues going on at this time. I called patient's as well at the nursing facility and discussed her care with him however he directed me to speak to Mr. Meng phone over the phone. Patient is confused and has underlying dementia and unable to make her own decisions. Patient's son would like to continue DNR/DNI status. He understands prognosis may be poor. We will continue to treat at this time as per above and reevaluate daily. 09/22/2024 Patient appears to be more euvolemic today. Currently on Lasix 40 IV twice daily. Oxygen 5 L nasal cannula at this time. Vitals are stable Hemoglobin is stable Continue heparin drip. Continue IV antibiotics. Patient on dysphagia level 6 diet soft and bite-size. Awaiting cardiac clearance for surgery. Patient has improved compared to admission. Will be updating patient's son over the phone. Acute encephalopathy seems to be resolving. Patient does have underlying dementia. Was hallucinating earlier seeing snakes on the wall. 09/23/2024 Awaiting records from [facility]. On 5L nasal cannula. This may be patient's new baseline. Order normal saline to 50 cc bolus x 1. Patient appears to be dehydrated this morning Will switch Lasix to once daily today and switch to oral as per cardiology recommendations ? Continue heparin drip in anticipation of hip surgery. ? Once optimized from cardiology standpoint patient may proceed for hip fracture repair. - Patient improving. ? RADHA inhibitor beta-mey to be added. ? Will update patient son over the phone today. I was unable to get a hold of him yesterday. 09/24/2024 Remains on 5L nasal cannula. Continue heparin drip. Patient awaiting cardiac clearance for surgery. Once clear we will notify orthopedic surgery for consultation. Continue metoprolol. Continue Lasix orally. Awaiting records from [facility] Switch Keppra to 500 twice daily orally. Morphine no longer required. Stop vancomycin. Switch to oral Levaquin. Patient's mental status is back to baseline. Family present at bedside today. Patient's sister and niece is present. Patient's son will be coming in on Wednesday. PDMP PDMP Reviewed: Not Reviewed Attestations Medical Necessity Statement*: Continue IV antibiotics and to treat for PE. Patient has a hip fracture and will need to be operated upon once optimized from cardiology standpoint. Diagnoses Closed fracture of left hip S72.002A Atrial septal aneurysm I25.3 History of CVA (cerebrovascular accident) without residual deficits Z86.73 Mixed hyperlipidemia E78.2 Hyperlipidemia type: mixed hyperlipidemia
[2024-09-24] MEDS: potassium chloride oral liq 20 mEq/15 mL UDC 40 MEQ PO (13:14)
[2024-09-24] MEDS: FUROsemide 10 mg/mL SDV 4mL 40 MG IVP (16:55)
[2024-09-24] MEDS: levETIRAcetam 500 MG/5 ML UDC PO (16:55)
[2024-09-24 19:21] LABS: Partial Thromboplastin Time 66.7 SECONDS (23.9-36.7)
--- NOTE | 2024-09-24 21:38 | P.PN_ITS ---
Subjective 2 Subjective: Patient appeared to little more short of breath today she was doing well yesterday though she is more awake Vitals/I&O/Wt Last Vital Signs Temp 97.9 F 09/24/24 20:17 Pulse 76 09/24/24 20:17 Resp 18 09/24/24 20:17 BP 135/74 09/24/24 20:17 Pulse Ox 95 09/24/24 20:17 O2 Del Method Nasal Cannula 09/24/24 15:47 O2 Flow Rate 5 09/24/24 20:00 09/24/24 09/24/24 09/24/24 06:59 14:59 22:59 Intake Total 195 / 1242.767 941.1 / 941.1 234.9 / 1176.0 Output Total 100 / 775 250 / 250 Balance 95 / 467.767 941.1 / 941.1 -15.1 / 926.0 Weight last 48 hrs Weight 114 lb 4.8 oz Weight 111 lb 3.2 oz Physical Exam 2 Const: OTHER: GENERAL: Patient is sleepy lethargic . HEART: Regular S1 and S2. No murmur, rub or gallop. LUNGS: Decreased breath sounds bilaterally. CENTRAL NERVOUS SYSTEM: Grossly nonfocal. EXTREMITIES: Lower extremities with out edema bilaterally. Urinary Catheter Management: Kelly: Cath Placed During This Visit: yes Reason for Continuing Indwelling Catheter: Required Immobilization for Trauma or Surgery or Anesthesia Urinary Catheter Date of Insertion: 09/19/24 Urinary Catheter Time of Insertion: 14:25 Data 09/24/24 01:05 09/24/24 01:05 A&P Assessment and plan (1) History of pulmonary embolism: (2) History of DVT (deep vein thrombosis): (3) Subcapital fracture of left hip: Qualifiers: Encounter type: initial encounter Fracture type: closed Qualified Code(s): S72.012A - Unspecified intracapsular fracture of left femur, initial encounter for closed fracture (4) Diastolic heart failure: Plan Resume IV Lasix 40 mg twice daily Continue aspirin beta-mey and RADHA Add isosorbide mononitrate to the regimen For now patient is not a good candidate or high risk for surgery would like to diurese and make her euvolemic before deciding with the surgery given her underlying pulm hypertension congestive heart failure and overall comorbidities PDMP PDMP Reviewed: Not Reviewed Attestations 2 Medical Necessity Statement*: Patient require continuation hospitalization for above defined care Coding Level of Care Code Acute Code for Chg Fwd Diagnoses History of pulmonary embolism Z86.711 History of DVT (deep vein thrombosis) Z86.718 Closed subcapital fracture of left femur, initial encounter S72.012A Encounter type: initial encounter Fracture type: closed Diastolic heart failure I50.30
[2024-09-25] VITALS (7 sets, daily range): BP systolic 92–131; BP diastolic 55–69; PULSE 70–77; RESP 11–18; TEMP 36.4–36.8; O2SAT 91–97; BMI 22.2
[2024-09-25 03:15] LABS: Basophils # 0.1 10^3/uL (0.0-0.1); Basophils % 0.6 %; Eosinophils # 0.3 10^3/uL (0.0-0.8); Eosinophils % 3.8 %; Lymphocytes # 0.8 10^3/uL (0.8-4.8); Lymphocytes % 10.4 %; Mean Corpuscular HGB Conc 28.8 g/dL (30-55); Mean Corpuscular Hemoglobin 23.2 pg (27-33); Mean Corpuscular Volume 80.7 fl (85-98); Mean Platelet Volume 10.2 fL (7.4-10.4); Monocytes # 0.7 10^3/uL (0.2-0.9); Monocytes % 9.3 %; Neutrophils # 5.88 10^3/uL (1.8-7.7); Neutrophils % 73.4 %; Nucleated Red Blood Cells % 0 %; Platelet Count 412 10^3/cmm (157-399); Red Blood Count 4.09 10^6/uL (3.85-5.65)
[2024-09-25 03:23] LABS: Partial Thromboplastin Time 61.1 SECONDS (23.9-36.7)
[2024-09-25 03:38] LABS: Anion Gap 14.7 (5-19); Blood Urea Nitrogen 16 mg/dL (8-23); Calcium 9.6 mg/dL (8.5-10.5); Carbon Dioxide 31 mmol/L (22-29); Chloride 98 mmol/L (98-107); Creatinine Clr Calc Pharmacy 36.1539; Glucose 110 mg/dL (65-115); Magnesium 2.1 mg/dL (1.7-2.3); Osmolality Calculated 292 mOsm/kg (285-295); Potassium 3.7 mmol/L (3.5-5.1); Sodium 140 mmol/L (136-145)
[2024-09-25] MEDS: FUROsemide 10 mg/mL SDV 4mL 40 MG IVP ×2 (03:59→15:01)
--- NOTE | 2024-09-25 08:59 | P.PN_ITS ---
<Statement entered by Cindy Cortés MD - 09/25/24 09:58> Patient was evaluated and cared for in conjunction with an advanced practice practitioner. I personally examined the patient and reviewed the chart and all pertinent data including imaging, telemetry, and laboratory results. I discussed the patient in detail with the advanced practice practitioner. Please see their note for complete H&P testing result and agreed upon plan of care for the patient. Today feeling better eating breakfast GENERAL: Patient is alert, awake and oriented x3. HEART: Regular S1 and S2. No murmur, rub or gallop. LUNGS: Clear to auscultate bilaterally. CENTRAL NERVOUS SYSTEM: Grossly nonfocal. EXTREMITIES: Lower extremities with out edema bilaterally. Assessment and plan Acute on chronic diastolic heart failure decompensated Respiratory failure History of pulmonary embolism Fracture Continue IV Lasix 40 mg twice daily Continue to monitor electrolyte Will reassess tomorrow to switch her to p.o. diuretics and to optimize medications Subjective 2 Subjective: Patient is stable at this point. Her family is with her at bedside. She is not very alert today. She is better when she takes the lasix from a respiratory standpoint. Creatinine is stable. She was placed on isosorbide yesterday. O2 sat. 91% via nasal cannula. Vitals/I&O/Wt Last Vital Signs Temp 97.6 F 09/25/24 07:33 Pulse 77 09/25/24 07:33 Resp 16 09/25/24 07:33 BP 128/65 09/25/24 07:33 Pulse Ox 91 09/25/24 07:33 O2 Del Method Nasal Cannula 09/25/24 07:33 O2 Flow Rate 5 09/24/24 20:00 09/24/24 09/25/24 09/25/24 22:59 06:59 14:59 Intake Total 234.9 / 1176.0 244.9 / 1420.9 240 / 240 Output Total 250 / 250 2000 / 2250 Balance -15.1 / 926.0 -1755.1 / -829.1 240 / 240 Weight last 48 hrs Weight 114 lb Weight 114 lb 4.8 oz Physical Exam 2 Const: OTHER: GENERAL: Patient is sleepy lethargic . HEART: Regular S1 and S2. No murmur, rub or gallop. LUNGS: Decreased breath sounds bilaterally. CENTRAL NERVOUS SYSTEM: Grossly nonfocal. EXTREMITIES: Lower extremities with out edema bilaterally. Urinary Catheter Management: Kelly: Cath Placed During This Visit: yes Reason for Continuing Indwelling Catheter: Required Immobilization for Trauma or Surgery or Anesthesia Urinary Catheter Date of Insertion: 09/19/24 Urinary Catheter Time of Insertion: 14:25 Data 09/25/24 02:02 09/25/24 02:02 A&P Assessment and plan (1) History of pulmonary embolism: (2) History of DVT (deep vein thrombosis): (3) Subcapital fracture of left hip: Qualifiers: Encounter type: initial encounter Fracture type: closed Qualified Code(s): S72.012A - Unspecified intracapsular fracture of left femur, initial encounter for closed fracture (4) Diastolic heart failure: Plan Continue IV Lasix 40 mg twice daily Continue aspirin beta-mey and RADHA Continue isosorbide mononitrate to the regimen PDMP PDMP Reviewed: Not Reviewed Attestations 2 Medical Necessity Statement*: Deferred to primary. Coding Level of Care Code Acute Code for Chg Fwd Diagnoses History of pulmonary embolism Z86.711 History of DVT (deep vein thrombosis) Z86.718 Closed subcapital fracture of left femur, initial encounter S72.012A Encounter type: initial encounter Fracture type: closed Diastolic heart failure I50.30
[2024-09-25] MEDS: metoprolol succinate ER (24 HR) 25 mg Tablet 12.5 MG PO (09:42)
[2024-09-25] MEDS: famotidine 20 mg Tablet PO (09:42)
[2024-09-25] MEDS: levETIRAcetam 500 MG/5 ML UDC PO ×2 (09:42→17:16)
[2024-09-25] MEDS: isosorbide mononitrate ER 30 mg Tablet PO (09:42)
[2024-09-25] MEDS: polyethylene glycol 3350 Pkt 17 gm PO (09:43)
[2024-09-25] MEDS: citalopram 20 mg Tablet 10 MG PO (09:43)
[2024-09-25 09:52] LABS: Partial Thromboplastin Time 52.4 SECONDS (23.9-36.7)
[2024-09-25] MEDS: heparin drip 25,000 UNIT/500 ML PREMIX 19 UNIT IV (09:54)
[2024-09-25 10:00] LABS: Vancomycin Trough 11.1 ug/mL (10-15)
[2024-09-25] MEDS: heparin 5,000 unit/mL INJ 1 mL IVP (10:11)
--- NOTE | 2024-09-25 11:41 | PC.SOCIAL ---
IMM Update pg 2 of IMM updated and reviewed w/ patients sister. Copy provided and copy dated, initialed and placed in chart.
[2024-09-25] MEDS: levofloxacin-dextrose 5 % 500 MG/100 ML PREMIX 100 MG IV (15:01)
--- NOTE | 2024-09-25 17:26 | P.PN_ITS ---
Subjective 2 Subjective: Denies any pain today. Per family at bedside patient was able to eat her meals, was able to self feed, however is preferring to sleep for most of the day. Medications: Reviewed: Yes Vitals/I&O/Wt Last Vital Signs Temp 98.2 F 09/25/24 16:00 Pulse 70 09/25/24 16:00 Resp 16 09/25/24 16:00 BP 92/59 09/25/24 16:00 Pulse Ox 97 09/25/24 16:00 O2 Del Method Nasal Cannula 09/25/24 16:00 O2 Flow Rate 3 09/25/24 09:03 09/25/24 09/25/24 09/25/24 06:59 14:59 22:59 Intake Total 244.9 / 1420.9 349.1 / 349.1 240.6 / 589.7 Output Total 1999 / 2249 Balance -1755.1 / -829.1 349.1 / 349.1 240.6 / 589.7 Weight last 48 hrs Weight 51.71 kg Weight 51.846 kg Physical Exam 2 Narrative: General: No acute distress, AO x3 HEENT: PERRLA, pupils bilaterally equal and reactive, pallors not present Chest: Normal vesicular breath sounds, no added sounds, equal good air entry bilaterally CVS: S1-S2 regular, no murmurs, no tachycardia, no gallops, no rubs Abdomen: Soft, nontender, no organomegaly, bowel sounds present Neuro: No focal deficits, no facial deformity, AO x3, power 5/5 in all limbs Urinary Catheter Management: Kelly: Cath Placed During This Visit: yes Reason for Continuing Indwelling Catheter: Required Immobilization for Trauma or Surgery or Anesthesia Urinary Catheter Date of Insertion: 09/19/24 Urinary Catheter Time of Insertion: 14:25 Data 09/25/24 02:02 09/25/24 02:02 A&P Assessment and plan (1) Closed fracture of left hip: (2) Atrial septal aneurysm: (3) History of CVA (cerebrovascular accident) without residual deficits: (4) Hyperlipemia: Qualifiers: Hyperlipidemia type: mixed hyperlipidemia Qualified Code(s): E78.2 - Mixed hyperlipidemia (5) Pulmonary embolism: (6) Diastolic heart failure: (7) History of DVT (deep vein thrombosis): (8) Dementia: Plan #Left femoral neck fracture #History of pulmonary embolism, used to be on Xarelto #History of seizures, currently on Keppra. #History of CVA #History of atrial septal aneurysm #Dementia #intermediate resident #Hx of GI bleed ? Pain control ? Orthopedic surgery consulted ? Continue DVT prophylaxis with heparin SQ twice daily. Patient is at high risk of PE DVT secondary to history of such. ? As per previous discharge summary. It is indicated that on prior hospitalization Xarelto was stopped after it was continued for several years for what appears to be a DVT however it was unknown if it was provoked or unprovoked in the past. She did have a PE shortly after being taken off of Xarelto therefore long-term anticoagulation was recommended going forward. Last echo is from 2022 LVEF 65% no diagnostic regional wall motion abnormalities. ? Continue Keppra 500 twice daily ? Obtain baseline EKG, chest x-ray ? Patient unable to provide a history however denies chest pain at this time. -Orthopedic surgery consulted. ? Blood pressure elevated most likely secondary to pain. I do not believe she has hypertension. ? Continue to monitor blood pressure. May use hydralazine 5 mg IV every 6-8 hours as needed. ? I do expect her blood pressure to improve after pain medicine. - PT after surgery. She will need DVT prophylaxis after surgery. ? Check urine culture. Leukocytosis most likely reactive however patient does have acute on chronic encephalopathy. Must rule out UTI. Will check urinalysis. Will place on empiric ceftriaxone. DVT prophylaxis: Heparin SQ twice daily 09/20/2024 As per patient's son she had some sort of GI bleed situation in the last 1 or 2 years. We are awaiting records from [facility]. At that point Xarelto was stopped indefinitely. There is no sign of bleed at this time. Hemoglobin stable at 10.3. ? There is no known history of heart failure however patient's BNP was 4400 when checked yesterday evening. Chest x-ray did show pulmonary vascular congestion. Patient given Lasix 40 IV x 1. Urine output 1550 overnight. Clinically she appears to be euvolemic at this time. Echocardiogram is pending. Cardiology consulted for cardiac optimization for surgery. Tentatively surgery has been planned for 4 PM today as per nursing staff. Urinalysis did show 100 RBCs, 3+ blood. Possible traumatic insertion of Kelly. Hemoglobin is stable. Continue to monitor. Vitals are stable. Patient on 4 L oxy mask. She is a mouth breather. Patient is confused. Does follow some commands. Urinalysis suggestive of UTI. Patient was given preop antibiotics clindamycin x 2. ABG ordered and reviewed. Will await echo. Once okay from cardiac standpoint patient may proceed for femoral neck fracture repair. 09/21/2024 Potassium 3.3 today. Repleted by cardiology this morning. Speech therapy evaluated the patient and she has been switched to a dysphagia level 6 soft bite-size diet. CTA chest with the following results: 1. Evidence of segmental and subsegmental pulmonary emboli described above. 2. Several scattered mainly peripheral parenchymal opacities worse in the LEFT upper lobe. This may be infectious or inflammatory also consider septic emboli. 3. Large esophageal hiatal hernia with intrathoracic stomach. 4. Advanced chronic emphysematous changes with scattered areas of fibrosis. 5. Focal spiculated opacity RIGHT lower lobe posterior medially measuring 1.8 cm. Neoplasm not excluded. Recommend short interval follow-up chest CT and consider further evaluation with PET/CT if persistent Cardiac echo shows: Normal left ventricular size and systolic function, EF 58%no regional wall motion abnormalities. . Mild left ventricular hypertrophy. Grade I/IV diastolic dysfunction (abnormal relaxation filling pattern), normal to mildly elevated filling pressures. Trace mitral valve regurgitation. Moderate mitral annular calcification. Trace to mild aortic valve regurgitation. Moderate tricuspid valve regurgitation. Moderate pulmonary hypertension with an estimated pulmonary artery peak systolic pressure of 72 mmHg with a mean pressure of 32 mmHg There is no pericardial effusion. Patient was started on heparin drip. We will continue at this time and switch to Eliquis 2.5 twice daily at time of discharge. Will complete 48 hours of heparin as per NSTEMI protocol as well. NSTEMI: Demand ischemia versus true WI. EKG did not show any ischemic changes. Completed 48 hours of heparin. Secondary to patient's history of anemia in the past where anticoagulation had to be stopped. She was on EGD colonoscopy in [facility] last year. Discussed with son over the phone. I will hold off on placing patient on aspirin and Plavix as risk of bleeding will be higher. Still awaiting records from [facility] CTA chest also shows spiculated opacity measuring 1.8 cm. Neoplasm not excluded. PET scan recommended by radiology. Patient will need further workup going forward Question of aspiration versus infectious process and left upper lobe. Infectious inflammatory septic emboli not excluded. Echo does not show any vegetation and patient does not show stigmata of endocarditis. Low suspicion of endocarditis. Possible pneumonia? Continue IV Levaquin daily. Add vancomycin IV to cover empirically. Patient is quite hypoxic having increasing oxygen requirements. Earlier this morning she was on 15 L oxy mask. Continue to diurese with Lasix 40 IV twice daily. Patient does have evidence of diastolic heart failure. Once medically optimized may proceed to surgery. Patient not medically optimized yet. Discussed with cardiology, orthopedic surgery over the phone. Called patient's son Mr. Meng over the phone and updated him of patient's condition. He did voice to me that he will consider hospice if patient does not improve in next few days as he understands prognosis is poor with multitude of medical issues going on at this time. I called patient's as well at the nursing facility and discussed her care with him however he directed me to speak to Mr. Meng phone over the phone. Patient is confused and has underlying dementia and unable to make her own decisions. Patient's son would like to continue DNR/DNI status. He understands prognosis may be poor. We will continue to treat at this time as per above and reevaluate daily. 09/22/2024 Patient appears to be more euvolemic today. Currently on Lasix 40 IV twice daily. Oxygen 5 L nasal cannula at this time. Vitals are stable Hemoglobin is stable Continue heparin drip. Continue IV antibiotics. Patient on dysphagia level 6 diet soft and bite-size. Awaiting cardiac clearance for surgery. Patient has improved compared to admission. Will be updating patient's son over the phone. Acute encephalopathy seems to be resolving. Patient does have underlying dementia. Was hallucinating earlier seeing snakes on the wall. 09/23/2024 Awaiting records from [facility]. On 5L nasal cannula. This may be patient's new baseline. Order normal saline to 50 cc bolus x 1. Patient appears to be dehydrated this morning Will switch Lasix to once daily today and switch to oral as per cardiology recommendations ? Continue heparin drip in anticipation of hip surgery. ? Once optimized from cardiology standpoint patient may proceed for hip fracture repair. - Patient improving. ? RADHA inhibitor beta-mey to be added. ? Will update patient son over the phone today. I was unable to get a hold of him yesterday. 09/24/2024 Remains on 5L nasal cannula. Continue heparin drip. Patient awaiting cardiac clearance for surgery. Once clear we will notify orthopedic surgery for consultation. Continue metoprolol. Continue Lasix orally. Awaiting records from [facility] Switch Keppra to 500 twice daily orally. Morphine no longer required. Stop vancomycin. Switch to oral Levaquin. Patient's mental status is back to baseline. Family present at bedside today. Patient's sister and niece is present. Patient's son will be coming in on Wednesday. September 25, 2024 Chart reviewed. Patient is an 88-year-old lady with a past medical history of lacunar stroke, history of DVT on Xarelto, taken off in 2022 which resulted in bilateral PE, then placed back on anticoagulation with Eliquis in 2022 which it appears she was also discontinued at some point due to GI bleeding. She is a long-term detention resident. She has underlying dementia. She was admitted to the hospital on September 19, 2024 from the [place] after being found to be more altered than usual. She was found to have a left femoral neck fracture, orthopedics was consulted and recommended a left hemiarthroplasty. On September 20, 2024 she was noted to be on 7 L oxy mask due to hypoxia. She was noted to have an elevated BNP, chest x-ray appeared to show pulmonary vascular congestion. She was placed on diuresis with IV Lasix. Echocardiogram was obtained which showed an LVEF of 58% without regional wall motion abnormalities. There was grade 1 diastolic dysfunction. Trace MR, moderate pulmonary hypertension with estimated PASP of 72 mmHg. Troponin series showed a baseline of 52, going up to 105 and then 139 with delta troponins of 53 and 87 respectively. Cardiology was consulted in view of possible NSTEMI. She was placed on a heparin drip since September 20, 2024. CTA of the chest was obtained which showed segmental and subsegmental PE. Note was also made of scattered parenchymal opacities worse in the left upper lobe. infectious versus inflammatory, septic emboli in the differential. Advanced emphysema with scattered areas of fibrosis. There was also a focal spiculated opacity in the right lower lobe measuring 1.8 cm, possible neoplasm within the differential. A PICC line was placed on September 21, 2024. Sputum culture is not available. Urine culture is negative. Blood culture has not been obtained. She has been on levofloxacin 500mg every 24 hrs since 09/20/24 along with IV vancomycin.. Surgery was canceled pending medical optimization. She is currently on 2lpm supplemental 02 and clinically appearing to be euvolemic. Overall net -2.2 L since admission. Plan: Patient admitted to the hospital for left hip fracture, eventually unable to undergo surgery due to acute respiratory hypoxic failure. Likely that hypoxic respiratory failure is medically factorial related to pulmonary hypertension, bilateral PE, diastolic heart failure. Patient has been receiving diuresis with IV Lasix for the pulmonary hypertension and CHF. For PE she has remained on anticoagulation with heparin drip. Will discontinue heparin drip today and transition to Lovenox 1 mg/kg every 12 hours. She is currently on 2 L/min supplemental O2. Net negative by 3.2 L. Clinically appears to be euvolemic to me today. CT of the chest also makes note of possible neoplasm given spiculated lesion in the right lower lobe and inflammatory infiltrates bilaterally. Less likely to be pneumonia. At any rate the infiltrates are mild, do not explain the degree of hypoxia therefore feel this is more likely related to pulmonary hypertension and diastolic CHF along with PE. Since possibility of septic emboli is not excluded per radiology report will obtain blood cultures, though these are highly likely to be unreliable at this point given she has had 1 week of antibiotics. Patient has dementia and unable to participate in her goals of care discussion. Her son is expected to drive in from [place] today. From a respiratory standpoint, proceeding with surgery would be high risk at any given point as her underlying comorbidities are unlikely to change significantly over the next few weeks to months. She remains at a high risk no matter when she undergoes surgery. We may be able to achieve a window of best optimization to proceed with surgery however she remains at a high risk of mortality regardless. Will discuss with the son that on one hand conservative management is an option. Per discussion with orthopedics nurse practitioner, patient would likely remain to be bedbound over the next 6 6 to 8 weeks as the fracture heals. She is at a higher risk of pneumonia, aspiration events, bedsores given poor subcutaneous fat reserves if family elects not to do surgery. With surgery there may be a chance to return to mobility, however she remains at a higher risk of perioperative morbidity and mortality. Will discuss these options with the son once he is available in person. Reduce dose of Imdur as blood pressure noted to be soft at 92/59 today. d/c levaquin and vancomycin. Check resp panel , may be viral inflammatory infiltrates. Hb stable at 9.5, no active hematemeis, neha or other signs of bleeding at this time. PDMP PDMP Reviewed: Not Reviewed Attestations 2 Medical Necessity Statement*: continued iv diuresis, GOC discussion, possible surgical management Coding Level of Care Code Acute Code for Chg Fwd Diagnoses Closed fracture of left hip S72.002A Atrial septal aneurysm I25.3 History of CVA (cerebrovascular accident) without residual deficits Z86.73 Mixed hyperlipidemia E78.2 Hyperlipidemia type: mixed hyperlipidemia Pulmonary embolism I26.99 Diastolic heart failure I50.30 History of DVT (deep vein thrombosis) Z86.718 Dementia F03.90
[2024-09-25] MEDS: enoxaparin 40 mg/0.4 mL Syringe SUBCUT (21:05)
[2024-09-26] VITALS (8 sets, daily range): BP systolic 95–119; BP diastolic 54–72; PULSE 72–90; RESP 15–18; TEMP 36.4–36.8; O2SAT 91–94; BMI 22.2
[2024-09-26] MEDS: FUROsemide 10 mg/mL SDV 4mL 40 MG IVP (03:40)
[2024-09-26 05:18] LABS: Basophils # 0.1 10^3/uL (0.0-0.1); Basophils % 0.7 %; Eosinophils # 0.3 10^3/uL (0.0-0.8); Eosinophils % 3.7 %; Hematocrit 32.2 % (36-47); Lymphocytes # 1.1 10^3/uL (0.8-4.8); Lymphocytes % 12.3 %; Mean Corpuscular HGB Conc 29.5 g/dL (30-55); Mean Corpuscular Hemoglobin 23.4 pg (27-33); Mean Corpuscular Volume 79.3 fl (85-98); Mean Platelet Volume 9.5 fL (7.4-10.4); Monocytes # 0.7 10^3/uL (0.2-0.9); Monocytes % 7.7 %; Neutrophils # 6.06 10^3/uL (1.8-7.7); Nucleated Red Blood Cells % 0 %; Platelet Count 446 10^3/cmm (157-399); Red Blood Count 4.06 10^6/uL (3.85-5.65); Red Cell Distribution Width 16.1 % (12.1-15.1); White Blood Count 8.54 10^3/uL (3.29-11.43)
[2024-09-26 05:40] LABS: Alanine Aminotransferase 18 U/L (0-33); Albumin Level 3.3 g/dL (3.5-5.2); Alkaline Phosphatase 91 U/L (35-105); Anion Gap 14.8 (5-19); Aspartate Amino Transferase 19 U/L (0-32); Blood Urea Nitrogen 20 mg/dL (8-23); Calcium 9.7 mg/dL (8.5-10.5); Carbon Dioxide 34 mmol/L (22-29); Chloride 95 mmol/L (98-107); Creatinine Clr Calc Pharmacy 32.1004; Globulin 3.4 g/dL (1.3-4.6); Glucose 108 mg/dL (65-115); Osmolality Calculated 293 mOsm/kg (285-295); Potassium 3.8 mmol/L (3.5-5.1); Sodium 140 mmol/L (136-145); Total Bilirubin 0.2 mg/dL (0.15-1.2); Total Protein 6.7 g/dL (6.6-8.7)
[2024-09-26] MEDS: levETIRAcetam 500 MG/5 ML UDC PO ×2 (08:48→17:26)
[2024-09-26] MEDS: polyethylene glycol 3350 Pkt 17 gm PO (08:48)
[2024-09-26] MEDS: metoprolol succinate ER (24 HR) 25 mg Tablet 12.5 MG PO (08:48)
[2024-09-26] MEDS: citalopram 20 mg Tablet 10 MG PO (08:48)
[2024-09-26] MEDS: enoxaparin 40 mg/0.4 mL Syringe SUBCUT ×2 (08:49→20:45)
[2024-09-26] MEDS: famotidine 20 mg Tablet PO (08:49)
[2024-09-26] MEDS: isosorbide mononitrate ER 30 mg Tablet 15 MG PO (08:49)
--- NOTE | 2024-09-26 10:12 | P.PN_ITS ---
<Statement entered by Cindy Cortés MD - 10/05/24 20:20> Patient was evaluated and cared for in conjunction with an advanced practice practitioner. I personally examined the patient and reviewed the chart and all pertinent data including imaging, telemetry, and laboratory results. I discussed the patient in detail with the advanced practice practitioner. Please see their note for complete H&P testing result and agreed upon plan of care for the patient. Subjective 2 Subjective: Patient is stable at this point. She is not very alert this morning. Still quite lethargic. She is better when she takes the lasix from a respiratory standpoint. Creatinine is stable. O2 sat 92% on 2L nasal cannula. Vitals/I&O/Wt Last Vital Signs Temp 97.7 F 09/26/24 08:00 Pulse 80 09/26/24 09:34 Resp 18 09/26/24 09:34 BP 111/68 09/26/24 08:00 Pulse Ox 92 09/26/24 09:34 O2 Del Method Nasal Cannula 09/26/24 09:34 O2 Flow Rate 2 09/26/24 09:34 09/25/24 09/26/24 09/26/24 22:59 06:59 14:59 Intake Total 480.6 / 829.7 600 / 1429.7 120 / 120 Output Total 400 / 400 700 / 1100 Balance 80.6 / 429.7 -100 / 329.7 120 / 120 Weight last 48 hrs Weight 114 lb Weight 114 lb Physical Exam 2 Const: OTHER: GENERAL: Patient is sleepy lethargic . HEART: Regular S1 and S2. No murmur, rub or gallop. LUNGS: Decreased breath sounds bilaterally. CENTRAL NERVOUS SYSTEM: Grossly nonfocal. EXTREMITIES: Lower extremities with out edema bilaterally. Urinary Catheter Management: Kelly: Cath Placed During This Visit: yes Reason for Continuing Indwelling Catheter: Other Urinary Catheter Date of Insertion: 09/19/24 Urinary Catheter Time of Insertion: 14:25 Data 09/26/24 04:40 09/26/24 04:40 A&P Assessment and plan (1) History of pulmonary embolism: (2) History of DVT (deep vein thrombosis): (3) Subcapital fracture of left hip: Qualifiers: Encounter type: initial encounter Fracture type: closed Qualified Code(s): S72.012A - Unspecified intracapsular fracture of left femur, initial encounter for closed fracture (4) Diastolic heart failure: Plan Continue IV Lasix 40 mg this AM. May consider transitioning her to PO lasix this evening. Continue aspirin beta-mey and RADHA Continue isosorbide mononitrate to the regimen PDMP PDMP Reviewed: Not Reviewed Attestations 2 Medical Necessity Statement*: Deferred to primary Coding Level of Care Code Acute Code for Chg Fwd Diagnoses History of pulmonary embolism Z86.711 History of DVT (deep vein thrombosis) Z86.718 Closed subcapital fracture of left femur, initial encounter S72.012A Encounter type: initial encounter Fracture type: closed Diastolic heart failure I50.30
--- NOTE | 2024-09-26 15:14 | P.PN_ITS ---
Subjective 2 Subjective: Pain is currently well-controlled. Patient appears to be comfortable. Son is at bedside today. Medications: Reviewed: Yes Vitals/I&O/Wt Last Vital Signs Temp 97.5 F L 09/26/24 12:00 Pulse 90 09/26/24 12:00 Resp 16 09/26/24 12:00 BP 95/60 09/26/24 12:00 Pulse Ox 93 09/26/24 12:00 O2 Del Method Nasal Cannula 09/26/24 12:00 O2 Flow Rate 2 09/26/24 09:34 09/26/24 09/26/24 09/26/24 06:59 14:59 22:59 Intake Total 600 / 1429.7 240 / 240 Output Total 700 / 1100 Balance -100 / 329.7 240 / 240 Weight last 48 hrs Weight 51.71 kg Weight 51.71 kg Physical Exam 2 Narrative: General: No acute distress, AO x1, does not follow in conversation HEENT: PERRLA, pupils bilaterally equal and reactive, pallors not present Chest: Normal vesicular breath sounds, no added sounds, equal good air entry bilaterally CVS: S1-S2 regular, no murmurs, no tachycardia, no gallops, no rubs Abdomen: Soft, nontender, no organomegaly, bowel sounds present Urinary Catheter Management: Kelly: Cath Placed During This Visit: yes Reason for Continuing Indwelling Catheter: Other Urinary Catheter Date of Insertion: 09/19/24 Urinary Catheter Time of Insertion: 14:25 Data 09/26/24 04:40 09/26/24 04:40 A&P Assessment and plan (1) Closed fracture of left hip: (2) Atrial septal aneurysm: (3) History of CVA (cerebrovascular accident) without residual deficits: (4) Hyperlipemia: Qualifiers: Hyperlipidemia type: mixed hyperlipidemia Qualified Code(s): E78.2 - Mixed hyperlipidemia (5) Pulmonary embolism: (6) Diastolic heart failure: (7) History of DVT (deep vein thrombosis): (8) Dementia: Plan #Left femoral neck fracture #History of pulmonary embolism, used to be on Xarelto #History of seizures, currently on Keppra. #History of CVA #History of atrial septal aneurysm #Dementia #snf resident #Hx of GI bleed ? Pain control ? Orthopedic surgery consulted ? Continue DVT prophylaxis with heparin SQ twice daily. Patient is at high risk of PE DVT secondary to history of such. ? As per previous discharge summary. It is indicated that on prior hospitalization Xarelto was stopped after it was continued for several years for what appears to be a DVT however it was unknown if it was provoked or unprovoked in the past. She did have a PE shortly after being taken off of Xarelto therefore long-term anticoagulation was recommended going forward. Last echo is from 2022 LVEF 65% no diagnostic regional wall motion abnormalities. ? Continue Keppra 500 twice daily ? Obtain baseline EKG, chest x-ray ? Patient unable to provide a history however denies chest pain at this time. -Orthopedic surgery consulted. ? Blood pressure elevated most likely secondary to pain. I do not believe she has hypertension. ? Continue to monitor blood pressure. May use hydralazine 5 mg IV every 6-8 hours as needed. ? I do expect her blood pressure to improve after pain medicine. - PT after surgery. She will need DVT prophylaxis after surgery. ? Check urine culture. Leukocytosis most likely reactive however patient does have acute on chronic encephalopathy. Must rule out UTI. Will check urinalysis. Will place on empiric ceftriaxone. DVT prophylaxis: Heparin SQ twice daily 09/20/2024 As per patient's son she had some sort of GI bleed situation in the last 1 or 2 years. We are awaiting records from [facility]. At that point Xarelto was stopped indefinitely. There is no sign of bleed at this time. Hemoglobin stable at 10.3. ? There is no known history of heart failure however patient's BNP was 4400 when checked yesterday evening. Chest x-ray did show pulmonary vascular congestion. Patient given Lasix 40 IV x 1. Urine output 1550 overnight. Clinically she appears to be euvolemic at this time. Echocardiogram is pending. Cardiology consulted for cardiac optimization for surgery. Tentatively surgery has been planned for 4 PM today as per nursing staff. Urinalysis did show 100 RBCs, 3+ blood. Possible traumatic insertion of Kelly. Hemoglobin is stable. Continue to monitor. Vitals are stable. Patient on 4 L oxy mask. She is a mouth breather. Patient is confused. Does follow some commands. Urinalysis suggestive of UTI. Patient was given preop antibiotics clindamycin x 2. ABG ordered and reviewed. Will await echo. Once okay from cardiac standpoint patient may proceed for femoral neck fracture repair. 09/21/2024 Potassium 3.3 today. Repleted by cardiology this morning. Speech therapy evaluated the patient and she has been switched to a dysphagia level 6 soft bite-size diet. CTA chest with the following results: 1. Evidence of segmental and subsegmental pulmonary emboli described above. 2. Several scattered mainly peripheral parenchymal opacities worse in the LEFT upper lobe. This may be infectious or inflammatory also consider septic emboli. 3. Large esophageal hiatal hernia with intrathoracic stomach. 4. Advanced chronic emphysematous changes with scattered areas of fibrosis. 5. Focal spiculated opacity RIGHT lower lobe posterior medially measuring 1.8 cm. Neoplasm not excluded. Recommend short interval follow-up chest CT and consider further evaluation with PET/CT if persistent Cardiac echo shows: Normal left ventricular size and systolic function, EF 58%no regional wall motion abnormalities. . Mild left ventricular hypertrophy. Grade I/IV diastolic dysfunction (abnormal relaxation filling pattern), normal to mildly elevated filling pressures. Trace mitral valve regurgitation. Moderate mitral annular calcification. Trace to mild aortic valve regurgitation. Moderate tricuspid valve regurgitation. Moderate pulmonary hypertension with an estimated pulmonary artery peak systolic pressure of 72 mmHg with a mean pressure of 32 mmHg There is no pericardial effusion. Patient was started on heparin drip. We will continue at this time and switch to Eliquis 2.5 twice daily at time of discharge. Will complete 48 hours of heparin as per NSTEMI protocol as well. NSTEMI: Demand ischemia versus true IA. EKG did not show any ischemic changes. Completed 48 hours of heparin. Secondary to patient's history of anemia in the past where anticoagulation had to be stopped. She was on EGD colonoscopy in [facility] last year. Discussed with son over the phone. I will hold off on placing patient on aspirin and Plavix as risk of bleeding will be higher. Still awaiting records from [facility] CTA chest also shows spiculated opacity measuring 1.8 cm. Neoplasm not excluded. PET scan recommended by radiology. Patient will need further workup going forward Question of aspiration versus infectious process and left upper lobe. Infectious inflammatory septic emboli not excluded. Echo does not show any vegetation and patient does not show stigmata of endocarditis. Low suspicion of endocarditis. Possible pneumonia? Continue IV Levaquin daily. Add vancomycin IV to cover empirically. Patient is quite hypoxic having increasing oxygen requirements. Earlier this morning she was on 15 L oxy mask. Continue to diurese with Lasix 40 IV twice daily. Patient does have evidence of diastolic heart failure. Once medically optimized may proceed to surgery. Patient not medically optimized yet. Discussed with cardiology, orthopedic surgery over the phone. Called patient's son Mr. Meng over the phone and updated him of patient's condition. He did voice to me that he will consider hospice if patient does not improve in next few days as he understands prognosis is poor with multitude of medical issues going on at this time. I called patient's as well at the nursing facility and discussed her care with him however he directed me to speak to Mr. Meng phone over the phone. Patient is confused and has underlying dementia and unable to make her own decisions. Patient's son would like to continue DNR/DNI status. He understands prognosis may be poor. We will continue to treat at this time as per above and reevaluate daily. 09/22/2024 Patient appears to be more euvolemic today. Currently on Lasix 40 IV twice daily. Oxygen 5 L nasal cannula at this time. Vitals are stable Hemoglobin is stable Continue heparin drip. Continue IV antibiotics. Patient on dysphagia level 6 diet soft and bite-size. Awaiting cardiac clearance for surgery. Patient has improved compared to admission. Will be updating patient's son over the phone. Acute encephalopathy seems to be resolving. Patient does have underlying dementia. Was hallucinating earlier seeing snakes on the wall. 09/23/2024 Awaiting records from [facility]. On 5L nasal cannula. This may be patient's new baseline. Order normal saline to 50 cc bolus x 1. Patient appears to be dehydrated this morning Will switch Lasix to once daily today and switch to oral as per cardiology recommendations ? Continue heparin drip in anticipation of hip surgery. ? Once optimized from cardiology standpoint patient may proceed for hip fracture repair. - Patient improving. ? RADHA inhibitor beta-mey to be added. ? Will update patient son over the phone today. I was unable to get a hold of him yesterday. 09/24/2024 Remains on 5L nasal cannula. Continue heparin drip. Patient awaiting cardiac clearance for surgery. Once clear we will notify orthopedic surgery for consultation. Continue metoprolol. Continue Lasix orally. Awaiting records from [facility] Switch Keppra to 500 twice daily orally. Morphine no longer required. Stop vancomycin. Switch to oral Levaquin. Patient's mental status is back to baseline. Family present at bedside today. Patient's sister and niece is present. Patient's son will be coming in on Wednesday. September 25, 2024 Chart reviewed. Patient is an 88-year-old lady with a past medical history of lacunar stroke, history of DVT on Xarelto, taken off in 2022 which resulted in bilateral PE, then placed back on anticoagulation with Eliquis in 2022 which it appears she was also discontinued at some point due to GI bleeding. She [facility] a [facility]. She has underlying dementia. She was [facility] to the [facility] on [facility] 19, [facility] after being found to be more altered than usual. She was found to have a left femoral neck fracture, orthopedics was consulted and recommended a left hemiarthroplasty. On September 20, 2024 she was noted to be on 7 L oxy mask due to hypoxia. She was noted to have an elevated BNP, chest x-ray appeared to show pulmonary vascular congestion. She was placed on diuresis with IV Lasix. Echocardiogram was obtained which showed an LVEF of 58% without regional wall motion abnormalities. There was grade 1 diastolic dysfunction. Trace MR, moderate pulmonary hypertension with estimated PASP of 72 mmHg. Troponin series showed a baseline of 52, going up to 105 and then 139 with delta troponins of 53 and 87 respectively. Cardiology was consulted in view of possible NSTEMI. She was placed on a heparin drip since September 20, 2024. CTA of the chest was obtained which showed segmental and subsegmental PE. Note was also made of scattered parenchymal opacities worse in the left upper lobe. infectious versus inflammatory, septic emboli in the differential. Advanced emphysema with scattered areas of fibrosis. There was also a focal spiculated opacity in the right lower lobe measuring 1.8 cm, possible neoplasm within the differential. A PICC line was placed on September 21, 2024. Sputum culture is not available. Urine culture is negative. Blood culture has not been obtained. She has been on levofloxacin 500mg every 24 hrs since 09/20/24 along with IV vancomycin.. Surgery was canceled pending medical optimization. She is currently on 2lpm supplemental 02 and clinically appearing to be euvolemic. Overall net -2.2 L since admission. Plan: Patient admitted to the hospital for left hip fracture, eventually unable to undergo surgery due to acute respiratory hypoxic failure. Likely that hypoxic respiratory failure is medically factorial related to pulmonary hypertension, bilateral PE, diastolic heart failure. Patient has been receiving diuresis with IV Lasix for the pulmonary hypertension and CHF. For PE she has remained on anticoagulation with heparin drip. Will discontinue heparin drip today and transition to Lovenox 1 mg/kg every 12 hours. She is currently on 2 L/min supplemental O2. Net negative by 3.2 L. Clinically appears to be euvolemic to me today. CT of the chest also makes note of possible neoplasm given spiculated lesion in the right lower lobe and inflammatory infiltrates bilaterally. Less likely to be pneumonia. At any rate the infiltrates are mild, do not explain the degree of hypoxia therefore feel this is more likely related to pulmonary hypertension and diastolic CHF along with PE. Since possibility of septic emboli is not excluded per radiology report will obtain blood cultures, though these are highly likely to be unreliable at this point given she has had 1 week of antibiotics. Patient has dementia and unable to participate in her goals of care discussion. Her son is expected to drive in from [place] today. From a respiratory standpoint, proceeding with surgery would be high risk at any given point as her underlying comorbidities are unlikely to change significantly over the next few weeks to months. She remains at a high risk no matter when she undergoes surgery. We may be able to achieve a window of best optimization to proceed with surgery however she remains at a high risk of mortality regardless. Will discuss with the son that on one hand conservative management is an option. Per discussion with orthopedics nurse practitioner, patient would likely remain to be bedbound over the next 6 6 to 8 weeks as the fracture heals. She is at a higher risk of pneumonia, aspiration events, bedsores given poor subcutaneous fat reserves if family elects not to do surgery. With surgery there may be a chance to return to mobility, however she remains at a higher risk of perioperative morbidity and mortality. Will discuss these options with the son once he is available in person. Reduce dose of Imdur as blood pressure noted to be soft at 92/59 today. d/c levaquin and vancomycin. Check resp panel , may be viral inflammatory infiltrates. Hb stable at 9.5, no active hematemeis, neha or other signs of bleeding at this time. September 26, 2024 Patient's son is at bedside. Had an extensive goals of care discussion with him. Presented home with current hospital course. Discussed with the family extensively that patient has multifactorial reasons for hypoxic respiratory failure including pulmonary embolism, pulmonary hypertension with a PASP of 72, diastolic CHF and a spiculated lesion which may be malignancy however unable to be certain without a PET scan or biopsy. No signs of metastatic disease currently. Given the above she remains at high risk of perioperative mortality. High risk of unable to be weaned off of the ventilator postsurgery. At this present time the patient is down to 2 L/min supplemental O2. She is clinically euvolemic. Overall from a respiratory standpoint she is as optimized as can be to proceed with surgical intervention, should the high risk be acceptable to family. Presented to the alternate option of conservative management which includes bedrest, [facility] and outpatient follow-up with orthopedics, anticipating the period Of at least 6 to 8 weeks for bone healing. She will remain at high risk of aspiration events, bedsores, pneumonia and UTI in this setting. Son to consider all information provided and get back with us regarding a decision. They would like to know if surgical pinning may be an option instead of hemiarthorplasty- defer to orthopedics with regards to best approach. call placed to discuss case with ortho [employer]. PDMP PDMP Reviewed: Not Reviewed Attestations 2 Medical Necessity Statement*: [facility] discussion today to discuss surgical vs conservative options Coding Level of Care Code Acute Code for Chg Fwd Diagnoses Closed fracture of left hip S72.002A Atrial septal aneurysm I25.3 History of CVA (cerebrovascular accident) without residual deficits Z86.73 Mixed hyperlipidemia E78.2 Hyperlipidemia type: mixed hyperlipidemia Pulmonary embolism I26.99 Diastolic heart failure I50.30 History of DVT (deep vein thrombosis) Z86.718 Dementia F03.90
[2024-09-26] MEDS: acetaminophen 325 mg Tablet 650 MG PO (15:38)
[2024-09-26] MEDS: FUROsemide 40 mg Tablet 80 MG PO (15:39)
--- NOTE | 2024-09-26 15:56 | XRR_ITS ---
PROCEDURE INFORMATION: Exam: XR Left Hip Exam date and time: 09/26/2024 4:15 PM Age: 89 years old Clinical indication: Injury or trauma; Fall; Blunt trauma (contusions or hematomas); Left; Hip; Additional info: Hip fracture, repeat x-ray to evaluate any displacement of left subcapital TECHNIQUE: Imaging protocol: Radiologic exam of the left hip. Views: 1 view hip with pelvis when performed. COMPARISON: CT hip LT wo con* [id number] 09/19/2024 12:13 PM FINDINGS: Bones/joints: There is subacute transverse fracture involving the femoral neck. Bony alignment remains normal. Soft tissues: Unremarkable. XR/XR hip LT 1V wo/w pel [id number] IMPRESSION: As above
--- NOTE | 2024-09-26 15:59 | P.PN_ITS ---
Subjective 2 Subjective: Left hip fracture Patient has had multiple medical complications since admission to the hospital. Presently needing to be diuresed in order to improve pulmonary function. Questionable cardiac status, mass within her chest also diagnosed. Medications: Reviewed: Yes Vitals/I&O/Wt Last Vital Signs Temp 97.5 F L 09/26/24 12:00 Pulse 90 09/26/24 12:00 Resp 16 09/26/24 12:00 BP 95/60 09/26/24 12:00 Pulse Ox 93 09/26/24 12:00 O2 Del Method Nasal Cannula 09/26/24 12:00 O2 Flow Rate 2 09/26/24 09:34 09/26/24 09/26/24 09/26/24 06:59 14:59 22:59 Intake Total 600 / 1429.7 240 / 240 Output Total 700 / 1100 450 / 450 Balance -100 / 329.7 240 / 240 -450 / -210 Weight last 48 hrs Weight 114 lb Weight 114 lb Physical Exam 2 Narrative: Patient is resting comfortably in bed. Family is around the bedside. Patient does not appear to have any type of pain about her left hip at this time. Family indicates she try get out of bed earlier Urinary Catheter Management: Kelly: Cath Placed During This Visit: yes Reason for Continuing Indwelling Catheter: Other Urinary Catheter Date of Insertion: 09/19/24 Urinary Catheter Time of Insertion: 14:25 Data 09/26/24 04:40 09/26/24 04:40 A&P Assessment and plan (1) Closed fracture of left hip: Patient has a subcapital fracture minimally displaced of the left hip. Qualifiers: Encounter type: subsequent encounter Fracture healing: with routine healing Qualified Code(s): S72.002D - Fracture of unspecified part of neck of left femur, subsequent encounter for closed fracture with routine healing Plan At this time I have met with the family to discuss the situation from the orthopedic standpoint. At this time with the multitude of medical problems patient is high risk for any type of surgical intervention. I have indicated that the patient was a level 3 ambulator (needing assistance to get up and ambulate) and more than likely will become a level 4 ambulator (nonambulator) due to this fracture. This is commonly seen in elderly people with hip fractures that they lose 1 level of ambulation. I have discussed the fact that she is high risk medically for any type of surgical intervention. We have indicated that it does not matter how large or small the surgery is it still a stress of surgery on the patient adding to the situation. It is more concerning that it is an anesthetic that has been given to her rather than the size of the surgery. Therefore, at this time I believe that either pinning this fracture versus endoprosthetic replacement is still going to be just as much stress and just as much risk for this patient. The family has a multitude of questions that have been answered. They are understanding that surgery is of high risk and could eventually lead to the demise of the patient. They are understanding that hip fractures can cause increased and medical problems that could lead to an earlier also. At this time family is leaning towards no intervention surgically. However, I will go ahead and order another x-ray of her hip to see if it is remaining stable. I have reassured the family that within 2 weeks of the fracture the fracture will be stable enough that they may transfer her from bed to chair and use a wheelchair at that time. The family is more amenable to that at this time. I will await the results of the hip x-ray now. PDMP PDMP Reviewed: Not Reviewed Attestations 2 Medical Necessity Statement*: Patient is in need of medical care for multitude of medical issues. Patient may need further pain control versus possible surgery for left hip fracture Coding Level of Care Code Critical Care >/= 30 minutes Diagnoses Closed fracture of left hip with routine healing, subsequent encounter S72.002D Encounter type: subsequent encounter Fracture healing: with routine healing
[2024-09-26 20:13] LABS: Adenovirus Not Detected (NOT DETECT); Chlamydia Pneumoniae Not Detected (NOT DETECT); Coronavirus 229E,HKU1,NL63,OC4 Not Detected (NOT DETECT); Human Metapneumovirus Not Detected (NOT DETECT); Human Rhinovirus/Enterovirus Not Detected (NOT DETECT); Influenza A Not Detected (NOT DETECT); Influenza A H1 Not Detected (NOT DETECT); Influenza A H1-2009 Not Detected (NOT DETECT); Influenza A H3 Not Detected (NOT DETECT); Influenza B Not Detected (NOT DETECT); Mycoplasma Pneumoniae Not Detected (NOT DETECT); Parainfluenza Virus Type 1 Not Detected (NOT DETECT); Parainfluenza Virus Type 2 Not Detected (NOT DETECT); Parainfluenza Virus Type 3 Not Detected (NOT DETECT); Parainfluenza Virus Type 4 Not Detected (NOT DETECT); Respiratory Syncytial Virus A Not Detected (NOT DETECT); Respiratory Syncytial Virus B Not Detected (NOT DETECT); SARS-COV-2 Not Detected (NOT DETECT)
[2024-09-27] VITALS (8 sets, daily range): BP systolic 113–147; BP diastolic 68–76; PULSE 20–75; RESP 14–20; TEMP 36.5–36.9; O2SAT 91–96; BMI 22.2
[2024-09-27] MEDS: metoprolol succinate ER (24 HR) 25 mg Tablet 12.5 MG PO (08:49)
[2024-09-27] MEDS: famotidine 20 mg Tablet PO (08:49)
[2024-09-27] MEDS: polyethylene glycol 3350 Pkt 17 gm PO (08:49)
[2024-09-27] MEDS: citalopram 20 mg Tablet 10 MG PO (08:49)
[2024-09-27] MEDS: levETIRAcetam 500 MG/5 ML UDC PO (08:49)
[2024-09-27] MEDS: enoxaparin 40 mg/0.4 mL Syringe SUBCUT (08:50)
[2024-09-27] MEDS: FUROsemide 40 mg Tablet 80 MG PO (08:52)
--- NOTE | 2024-09-27 09:59 | PC.SOCIAL ---
IMM Update pg 2 of IMM Updated and reviewed w/ patients son. Copy provided and copy dated, initialed and placed in chart.
--- NOTE | 2024-09-27 11:42 | P.PN_ITS ---
Subjective 2 Subjective: Repeat x-ray of the left hip was done last evening. Vitals/I&O/Wt Last Vital Signs Temp 97.7 F 09/27/24 11:39 Pulse 73 09/27/24 11:39 Resp 15 09/27/24 11:39 BP 113/72 09/27/24 11:39 Pulse Ox 93 09/27/24 11:39 O2 Del Method Nasal Cannula 09/27/24 11:39 O2 Flow Rate 2 09/27/24 07:39 09/26/24 09/27/24 09/27/24 22:59 06:59 14:59 Intake Total 240 / 480 300 / 780 120 / 120 Output Total 450 / 450 500 / 950 Balance -210 / 30 -200 / -170 120 / 120 Weight last 48 hrs Weight 114 lb Weight 114 lb Physical Exam 2 Urinary Catheter Management: Kelly: Cath Placed During This Visit: yes Reason for Continuing Indwelling Catheter: Other Urinary Catheter Date of Insertion: 09/19/24 Urinary Catheter Time of Insertion: 14:25 Data 09/26/24 04:40 09/26/24 04:40 A&P Assessment and plan (1) Subcapital fracture of left hip: Patient has minimally displaced subcapital fracture left hip. Repeat x-rays demonstrate that there is been no interval change since admission x-ray. Qualifiers: Encounter type: initial encounter Fracture type: closed Qualified Code(s): S72.012A - Unspecified intracapsular fracture of left femur, initial encounter for closed fracture Plan Plan at this time is having discussed this yesterday evening with the family that if the fracture remained stable that [facility] at this time. I would suggest having a repeat x-ray in about 4 weeks for repeat evaluation. care home may start doing bed to chair transfers next week on Wednesday minimal weightbearing on the left. Patient may sit up in bed. Patient may sit in a chair or a wheelchair. No ambulation/weightbearing of the left lower extremity should be done at this time. No further orthopedic intervention necessary at this time. Okay to [facility] to [facility] PDMP PDMP Reviewed: Not Reviewed Attestations 2 Medical Necessity Statement*: Patient is ready for discharge from an orthopedic standpoint Coding Level of Care Code Critical Care >/= 30 minutes Diagnoses Closed subcapital fracture of left femur, initial encounter S72.012A Encounter type: initial encounter Fracture type: closed
--- NOTE | 2024-09-27 11:46 | P.PN_ITS ---
<Statement entered by Rodriguez Guadalupe M.D - 09/27/24 22:50> Patient was cared for in conjunction with an advanced practice practitioner. I reviewed the chart and all pertinent data including imaging, telemetry, and laboratory results. I discussed the patient in detail with the advanced practice practitioner. Please see their note for complete progress note, results and agreed upon plan of care for the patient. Subjective 2 Subjective: Patient seen today with family. Patient's son states they have decided against surgery. She is going to be discharged today. She appears euvolemic at this time. Vitals/I&O/Wt Last Vital Signs Temp 97.7 F 09/27/24 11:39 Pulse 73 09/27/24 11:39 Resp 15 09/27/24 11:39 BP 113/72 09/27/24 11:39 Pulse Ox 93 09/27/24 11:39 O2 Del Method Nasal Cannula 09/27/24 11:39 O2 Flow Rate 2 09/27/24 07:39 09/26/24 09/27/24 09/27/24 22:59 06:59 14:59 Intake Total 240 / 480 300 / 780 120 / 120 Output Total 450 / 450 500 / 950 Balance -210 / 30 -200 / -170 120 / 120 Weight last 48 hrs Weight 114 lb Weight 114 lb Physical Exam 2 Const: OTHER: GENERAL: Patient is sleepy lethargic . HEART: Regular S1 and S2. No murmur, rub or gallop. LUNGS: Decreased breath sounds bilaterally. CENTRAL NERVOUS SYSTEM: Grossly nonfocal. EXTREMITIES: Lower extremities with out edema bilaterally. Urinary Catheter Management: Kelly: Cath Placed During This Visit: yes Reason for Continuing Indwelling Catheter: Other Urinary Catheter Date of Insertion: 09/19/24 Urinary Catheter Time of Insertion: 14:25 Data 09/26/24 04:40 09/26/24 04:40 A&P Assessment and plan (1) History of pulmonary embolism: (2) History of DVT (deep vein thrombosis): (3) Subcapital fracture of left hip: Qualifiers: Encounter type: initial encounter Fracture type: closed Qualified Code(s): S72.012A - Unspecified intracapsular fracture of left femur, initial encounter for closed fracture (4) Diastolic heart failure: Plan Patient has been transitioned to oral Lasix. Continue beta-mey, RADHA, and isosorbide. From a heart standpoint she is stable. Patient is to be discharged today. Will follow-up on an outpatient basis. PDMP PDMP Reviewed: Not Reviewed Attestations 2 Medical Necessity Statement*: Deferred to primary. Coding Level of Care Code Acute Code for Chg Fwd Diagnoses History of pulmonary embolism Z86.711 History of DVT (deep vein thrombosis) Z86.718 Closed subcapital fracture of left femur, initial encounter S72.012A Encounter type: initial encounter Fracture type: closed Diastolic heart failure I50.30
--- NOTE | 2024-09-27 12:43 | PC.NURSE ---
Called report to Eileen Chandler RN at [facility] @ [phone]
--- NOTE | 2024-09-27 14:01 | P.DS_ITS ---
Discharge Providers Date of Admission: 09/19/24 14:15 Date of Discharge: September 27, 2024 Attending Provider at Admission: Haydee Carrillo MD Attending Provider at Discharge: Leonora Camp MD Primary Care Provider: Mya Cole MD Diagnoses at Discharge Discharge Diagnosis (1) Subcapital fracture of left hip: Status: Acute Qualifiers: Encounter type: initial encounter Fracture type: closed Qualified Code(s): S72.012A - Unspecified intracapsular fracture of left femur, initial encounter for closed fracture (2) Diastolic heart failure: Status: Acute (3) Pulmonary embolism: Status: Acute (4) Pulmonary hypertension: Status: Acute Reason for Visit Reason for Visit: [facility] Hospital Course Hospital Course 89 F admitted to the hospital for left hip fracture, planned for left hemiarthroplasty, eventually unable to undergo surgery due to acute respiratory hypoxic failure which was multi factorial related to pulmonary hypertension, bilateral PE, diastolic heart failure. Patient received diuresis with IV Lasix for the pulmonary hypertension and CHF. For PE remained on anticoagulation with heparin drip, then transitioned to Lovenox. She is currently on 2 L/min supplemental O2. Respiratory status has improved and she is euvolemic. Net negative by 3.2 L. Transitioned to po lasix 40mg daily. CTA chest revealed B/L PE. She has a h/o GI bleed. Off a/c at discharge as family opted for hospice care. CT also makes note of possible neoplasm given spiculated lesion in the right lower lobe. GOC were discussed extensively with patient's son and had lengthy discussion about risks and benefits of surgery. From a respiratory standpoint, though patient is currently volume optimized, proceeding with surgery would be high risk at any given point as her underlying comorbidities are unlikely to change significantly over the next few weeks to months. she remains at high risk of perioperative mortality. High risk of unable to be weaned off of the ventilator postsurgery. Patient's son has presented with conservative management as a potential alternative, however patient would likely remain bedbound over the next few weeks as the fracture heals and that does put her at risk of pneumonia, aspiration events, bedsores. X-ray of the hip was repeated and overall fracture was noted to be stable over the last week. Per review of orthopedics note, it i s unlikely that patient will have a significant improvement in mobility even with surgery. After weighing the risks and benefits of both situations, family elected to transition to hospice care with return to SNF. Patient is allowed to have bed to chair transfers next week on Wednesday minimal weightbearing on the left. Patient may sit up in bed. Patient may sit in a chair or a wheelchair. No ambulation/weightbearing of the left lower extremity should be done at this time. F/up with orthopedics as outpatient if remains compatible with goals of care. Physical Exam Narrative: General: No acute distress, AO x3 HEENT: PERRLA, pupils bilaterally equal and reactive, pallors not present Chest: Normal vesicular breath sounds, no added sounds, equal good air entry bilaterally CVS: S1-S2 regular, no murmurs, no tachycardia, no gallops, no rubs Abdomen: Soft, nontender, no organomegaly, bowel sounds present Neuro: No focal deficits, no facial deformity, AO x3, power 5/5 in all limbs Urinary Catheter Management: Kelly: Cath Placed During This Visit: yes Reason for Continuing Indwelling Catheter: Other Urinary Catheter Date of Insertion: 09/19/24 Urinary Catheter Time of Insertion: 14:25 Discharge Data Studies Completed and Pending Completed Studies During Hospitalization Category Date Time Status CT head wo con* [id number] Stat Cat Scan 09/19/24 11:[address] hip LT wo con* [id number] Stat Cat Scan 09/19/24 11:49 Completed CTA chest [CT angio chest PE protcl [id number]] Stat Cat Scan 09/20/24 13:37 Completed CXRP [XR chest 1V portable [id number]] Routine Exams 09/21/24 11:42 Completed XR chest 1V portable [id number] Routine Exams 09/19/24 18:16 Completed XR chest 1V portable [id number] Stat Exams 09/19/24 11:07 Completed XR hip LT 1V wo/w pel [id number] Routine Exams 09/26/24 15:56 Completed XR hip LT 2-3V wo/w pel* [id number] Stat Exams 09/19/24 11:07 Completed CV. echo complete* [id number] Urgent Ultrasound 09/19/24 18:22 Completed Radiology Impressions Head CT 09/19/24 11:07 IMPRESSION: 1. No evidence of intracranial hemorrhage or mass effect. 2. Advanced small vessel changes with moderate parenchymal volume loss. 3. No acute intracranial findings. Hip/Pelvis X-Ray 09/19/24 11:07 IMPRESSION: 1. Questionable incomplete subcapital fracture along the lateral margin of the femoral neck. Consider CT for further work-up. Hip CT 09/19/24 11:49 IMPRESSION: Small nondisplaced incomplete subcapital fracture lateral LEFT femoral neck with cortical step-off and slight impaction. Chest CTA 09/20/24 13:37 IMPRESSION: 1. Evidence of segmental and subsegmental pulmonary emboli described above. 2. Several scattered mainly peripheral parenchymal opacities worse in the LEFT upper lobe. This may be infectious or inflammatory also consider septic emboli. 3. Large esophageal hiatal hernia with intrathoracic stomach. 4. Advanced chronic emphysematous changes with scattered areas of fibrosis. 5. Focal spiculated opacity RIGHT lower lobe posterior medially measuring 1.8 cm. Neoplasm not excluded. Recommend short interval follow-up chest CT and consider further evaluation with PET/CT if persistent Message LEFT for Haydeeaura Carrillo MD at 09/20/2024 3:05 PM. Chest X-Ray 09/21/24 11:42 IMPRESSION: 1. Right-sided PICC line ending at the cavoatrial junction in satisfactory position. The remaining aspects of the chest show little change since the last exam. Hip X-Ray 09/26/24 15:56 IMPRESSION: As above Laboratory Results WBC 8.54 10^3/uL (3.29-11.43) 09/26/24 04:40 RBC 4.06 10^6/uL (3.85-5.65) 09/26/24 04:40 Hgb 9.50 g/dL (11.27-16.99) L 09/26/24 04:40 Hct 32.2 % (36-47) L 09/26/24 04:40 MCV 79.3 fl (85-98) L 09/26/24 04:40 MCH 23.4 pg (27-33) L 09/26/24 04:40 MCHC 29.5 g/dL (30-55) L 09/26/24 04:40 RDW 16.1 % (12.1-15.1) H 09/26/24 04:40 Plt Count 446 10^3/cmm (157-399) H 09/26/24 04:40 MPV 9.5 fL (7.4-10.4) 09/26/24 04:40 Neut % (Auto) 71.0 % 09/26/24 04:40 Lymph % (Auto) 12.3 % 09/26/24 04:40 [place] % (Auto) 7.7 % 09/26/24 04:40 Eos % (Auto) 3.7 % 09/26/24 04:40 Baso % (Auto) 0.7 % 09/26/24 04:40 Neut # (Auto) 6.06 10^3/uL (1.8-7.7) 09/26/24 04:40 Lymph # (Auto) 1.1 10^3/uL (0.8-4.8) 09/26/24 04:40 [place] # (Auto) 0.7 10^3/uL (0.2-0.9) 09/26/24 04:40 Eos # (Auto) 0.3 10^3/uL (0.0-0.8) 09/26/24 04:40 Baso # (Auto) 0.1 10^3/uL (0.0-0.1) 09/26/24 04:40 Nucleated RBC % (auto) 0 % 09/26/24 04:40 Nucleated RBCs # 0.0 /100WBC 09/26/24 04:40 PT 15.00 SECONDS (12.1-14.9) H 09/20/24 05:01 INR 1.10 (0.8-1.2) 09/20/24 05:01 APTT 52.4 SECONDS (23.9-36.7) H 09/25/24 09:18 Specimen Type Arterial 09/20/24 10:55 Sample Site Brachial, left 09/20/24 10:55 ABG pH 7.43 (7.35-7.45) 09/20/24 10:55 ABG pCO2 44.4 mmHg (35-45) 09/20/24 10:55 ABG pO2 83.7 mmHg (80.0-100.0) 09/20/24 10:55 ABG HCO3 29.5 mmol/L (22-26) H 09/20/24 10:55 ABG O2 Saturation 96.9 09/20/24 10:55 ABG Base Excess 4.6 mmol/L (-2.0-2.0) H 09/20/24 10:55 Rock Test N/a 09/20/24 10:55 A-a O2 Gradient 1.5 mmHg (5-10) L 09/20/24 10:55 Hematocrit 29.8 % (37-47) L 09/20/24 10:55 Hgb O2 Saturation 94.7 % (95-100) L 09/20/24 10:55 Carboxyhemoglobin 1.4 %THgb (0.4-20.1) 09/20/24 10:55 Methemoglobin 0.8 % (0.4-1.5) 09/20/24 10:55 Total Hemoglobin 9.7 g/dL (12-16) L 09/20/24 10:55 Sodium 135.0 mmol/L (131-143) 09/20/24 10:55 Potassium 3.6 mmol/L (3.5-5.0) 09/20/24 10:55 Glucose 117.0 mg/dL (70-115) H 09/20/24 10:55 Ionized Calcium 1.3 mmol/L (1.1-1.4) 09/20/24 10:55 O2 Delivery Device Oxy mask 09/20/24 10:55 O2 Liters/Min 6.0 % 09/20/24 10:55 Computer Field Technician ID Broma 09/20/24 10:55 Sodium 140 mmol/L (136-145) 09/26/24 04:40 Potassium 3.8 mmol/L (3.5-5.1) 09/26/24 04:40 Chloride 95 mmol/L (98-107) L 09/26/24 04:40 Carbon Dioxide 34 mmol/L (22-29) H 09/26/24 04:40 Anion Gap 14.8 (5-19) 09/26/24 04:40 BUN 20 mg/dL (8-23) 09/26/24 04:40 Creatinine 0.9 mg/dL (0.5-0.9) 09/26/24 04:40 GFR Calculation Not Reportable 09/26/24 04:40 Glucose 108 mg/dL (65-115) 09/26/24 04:40 Calculated Osmolality 293 mOsm/kg (285-295) 09/26/24 04:40 Calcium 9.7 mg/dL (8.5-10.5) 09/26/24 04:40 Magnesium 2.1 mg/dL (1.7-2.3) 09/25/24 02:02 Total Bilirubin 0.2 mg/dL (0.15-1.2) 09/26/24 04:40 AST 19 U/L (0-32) 09/26/24 04:40 ALT 18 U/L (0-33) 09/26/24 04:40 Alkaline Phosphatase 91 U/L (35-105) 09/26/24 04:40 Troponin T Baseline 52 ng/L (0-10) H 09/20/24 11:13 Troponin T 120 Minute 105.5 ng/L (0-10) H 09/20/24 13:35 Delta Troponin T 53.5 ABS# (0-10) H* 09/20/24 13:35 Troponin T Hi Sens 6Hr 139.6 ng/L (0-10) H 09/20/24 17:08 Troponin T Hi Sens 6Hr Delta 87.6 ng/L (0-12) H* 09/20/24 17:08 NT-Pro-B Natriuret Pep 4493 pg/mL (0-450) H 09/19/24 11:20 Total Protein 6.7 g/dL (6.6-8.7) 09/26/24 04:40 Albumin 3.3 g/dL (3.5-5.2) L 09/26/24 04:40 Globulin 3.4 g/dL (1.3-4.6) 09/26/24 04:40 Lipase 18 U/L (13-60) 09/19/24 11:20 TSH 2.30 uIU/mL (0.27-4.20) 09/19/24 11:20 Urine Color Yellow (Yellow) 09/19/24 17:28 Urine Appearance Slightly cloudy (CLEAR) 09/19/24 17:28 Urine pH 5 (5-7) 09/19/24 17:28 Ur Specific [place] 1.025 (1.005-1.030) 09/19/24 17:28 Urine Protein 1+ (Negative) A 09/19/24 17:28 Urine Glucose (UA) Norm (Normal) 09/19/24 17:28 Urine Ketones 1+ (Negative) H 09/19/24 17: Urine Blood 3+ (Negative) A 09/19/24 17:28 Urine Nitrate Negative (Negative) 09/19/24 17:28 Urine Bilirubin Neg (Negative) 09/19/24 17: Urine Urobilinogen Norm mg/dL (Negative) 09/19/24 17: Ur Leukocyte Esterase Trace (Negative) A 09/19/24 17:28 Urine RBC >100 /hpf (0-2) H 09/19/24 17:28 Urine WBC 6-10 /hpf (0-5) 09/19/24 17: Ur Squamous Epith Cells 0-5 /hpf (0-5) 09/19/24 17: Amorphous Sediment Not Reportable 09/19/24 17: Urine Bacteria None seen /hpf (NONE) 09/19/24 17: Hyaline Casts 1.65 /lpf 09/19/24 17: Vancomycin Trough 11.1 ug/mL (10-15) 09/25/24 09:18 Adenovirus (PCR) Not detected (NOT DETECT) 09/26/24 18:01 C. pneumoniae DNA (PCR) Not detected (NOT DETECT) 09/26/24 18:01 Coronavirus 229E (PCR) Not detected (NOT DETECT) 09/26/24 18:01 Human Metapneumovir PCR Not detected (NOT DETECT) 09/26/24 18:01 Influenza A (H1) PCR Not detected (NOT DETECT) 09/26/24 18: Influ A (H1/09) PCR Not detected (NOT DETECT) 09/26/24 18:01 Influenza A (H3) PCR Not detected (NOT DETECT) 09/26/24 18:01 Influenza Type A (PCR) Not detected (NOT DETECT) 09/26/24 18:01 Influenza Type B (PCR) Not detected (NOT DETECT) 09/26/24 18:01 M. pneumoniae (PCR) Not detected (NOT DETECT) 09/26/24 18:01 Parainfluenza 1 (PCR) Not detected (NOT DETECT) 09/26/24 18:01 Parainfluenza 2 (PCR) Not detected (NOT DETECT) 09/26/24 18:01 Parainfluenza 3 (PCR) Not detected (NOT DETECT) 09/26/24 18:01 Parainfluenza 4 (PCR) Not detected (NOT DETECT) 09/26/24 18:01 RSV Type A (PCR) Not detected (NOT DETECT) 09/26/24 18:01 RSV Type B (PCR) Not detected (NOT DETECT) 09/26/24 18:01 Entero/Rhino (PCR) Not detected (NOT DETECT) 09/26/24 18:01 SARS-CoV-2 (PCR) Not detected (NOT DETECT) 09/26/24 18:01 Vitals Last Vital Signs Temp 97.7 F 09/27/24 11:39 Pulse 73 09/27/24 11:39 Resp 15 09/27/24 11:39 BP 113/72 09/27/24 11:39 Pulse Ox 93 09/27/24 11:39 O2 Del Method Nasal Cannula 09/27/24 11:39 O2 Flow Rate 2 09/27/24 07:39 Discharge Plan Discharge Patient Disposition: Hospice - Medical Facility Condition: Stable Prescriptions: New furosemide 40 mg Tablet 40 mg PO DAILY 30 Days Qty: 30 0RF hydrocodone-acetaminophen 5-325 mg tablet 1 tab PO Q8H PRN (Reason: pain) 5 Days Qty: 14 0RF Continued famotidine 20 mg tablet 20 mg PO DAILY Qty: 90 0RF citalopram 10 mg tablet 10 mg PO DAILY magnesium hydroxide [Milk of Magnesia] 400 mg/5 mL Suspension 30 ml PO DAILY PRN (Reason: Constipation) bisacodyl 10 mg Suppository 10 mg SC DAILY PRN (Reason: Constipation) Fleet Enema 19-7 gram/118 mL Enema 118 ml SC DAILY PRN (Reason: Constipation) magnesium citrate Solution 296 ml PO DAILY PRN (Reason: Constipation) polyethylene glycol 3350 17 gram/dose Powder 17 g PO DAILY levetiracetam 500 mg tablet 500 mg PO BID Rx Instructions: TAKE 1 TABLET BY MOUTH TWICE DAILY Discharge Orders: Discharge Order (Routine); Ordered 09/27/24 Ordered By: Leonora Camp Referrals: [facility] [Outside] [facility] H[facility] ([facility]) [Outside] KERRY Martin, CENTER MACHINE SET UP OPERATOR [Nurse Practitioner] - Discharge Diet: Usual diet Discharge Activity: Resume usual activity Patient Instructions: Furosemide (By mouth), Acute Wound Care (DC), Hip Fracture (GEN), Post Anesthesia Care Discharge Attestations Time Spent in Discharge Care*: greater than 30 min Quality Metrics Clinical Quality Measures [ Venous Thromboembolism { Contraindication to Overlap Therapy: Other (hospice patient); VTE Discharge Education: Other (hospice patient); Deep Vein Thrombosis/Pulmonary Embolism Present on Admission: Yes;}] Coding Level of Care Code Acute Code for Chg Fwd Diagnoses Closed subcapital fracture of left femur, initial encounter S72.012A Encounter type: initial encounter Fracture type: closed Diastolic heart failure I50.30 Pulmonary embolism I26.99 Pulmonary hypertension I27.20
== END 2024-09-27 16:00 | disposition skilled nursing facility (03) | DRG 535 ==
LOC: ER 12:52 → MEDSURG 14:15
PROVIDERS: Internal Medicine; Internal Medicine Cardiovascular Disease; Admitting Provider Internal Medicine; Emergency Provider Emergency Medicine; PCP Family Medicine; Visit Provider Student in an Organized Health Care Education/Training Program
DX: S72.012A Unspecified intracapsular fracture of left femur, initial encounter for closed fracture (principal); I26.99 Other pulmonary embolism without acute cor pulmonale; I50.33 Acute on chronic diastolic (congestive) heart failure; J96.01 Acute respiratory failure with hypoxia; I25.3 Aneurysm of heart; G93.40 Encephalopathy, unspecified; I50.32 Chronic diastolic (congestive) heart failure; C34.90 Malignant neoplasm of unspecified part of unspecified bronchus or lung; I25.2 Old myocardial infarction; Z86.711 Personal history of pulmonary embolism; Z86.73 Personal history of transient ischemic attack (TIA), and cerebral infarction without residual deficits; E78.5 Hyperlipidemia, unspecified; Z66 Do not resuscitate; E86.0 Dehydration; Z79.01 Long term (current) use of anticoagulants; Z88.0 Allergy status to penicillin; E78.2 Mixed hyperlipidemia; Z87.11 Personal history of peptic ulcer disease; G40.909 Epilepsy, unspecified, not intractable, without status epilepticus; F03.90 Unspecified dementia, unspecified severity, without behavioral disturbance, psychotic disturbance, mood disturbance, and anxiety; Z86.718 Personal history of other venous thrombosis and embolism; I27.20 Pulmonary hypertension, unspecified; W18.30XA Fall on same level, unspecified, initial encounter
CPT/HCPCS: 36415; 36573; 36592; 36600; 51702; 70450; 71045; 71275; 73501; 73502; 73700; 80048; 80051; 80053; 80202; 81001; 82330; 82805; 83690; 83735; 83880; 84443; 84484; 85025; 85610; 85730; 87086; 87486; 87581; 87633; 92507; 92523; 92526; 92610; 93005; 93306; 96372; 99285; J1644; J1650; J1940; J1953; J1956; J2270; J2704; J3370; J3490; J7030; J7050; J9999

== ENCOUNTER 2024-11-19 09:20 | Emergency (ER) | payer MEDICARE, SELFPAY ==
[2024-11-19] VITALS (48 sets, daily range): BP systolic 102–122; BP diastolic 55–73; PULSE 83–94; RESP 16–31; TEMP 37.2; O2SAT 90–99
--- NOTE | 2024-11-19 09:23 | XRR_ITS ---
PROCEDURE INFORMATION: Exam: XR Left Hip Exam date and time: 11/19/2024 9:31 AM Age: 89 years old Clinical indication: Left hip; Lt hip pain post fall TECHNIQUE: Imaging protocol: Radiologic exam of the left hip. Views: 2 or 3 views hip with pelvis when performed. COMPARISON: 1. CR XR hip LT 1V wo/w pel [id number] 09/26/2024 4:15 PM 2. CR XR hip LT 2-3V wo/w pel* [id number] 09/19/2024 11:[address] hip LT wo con* [id number] 09/19/2024 12:13 PM FINDINGS: Bones/joints: Fracture low neck, intertrochanteric region proximal femur appearing new, changed compared to 09/26/2024, 09/19/2024. Sclerosis more proximally left femoral neck/subcapital region compatible with attempted healing response to prior fracture. No additional displaced fracture nor dislocation seen. Soft tissues: Unremarkable. Vasculature: Atherosclerotic disease. XR/XR hip LT 2-3V wo/w pel* [id number] IMPRESSION: 1. New fracture low neck, intertrochanteric region proximal left femur with slight angulation and displacement of fragments.. 2. Sclerosis left femoral neck, subcapital region compatible with attempted healing response to prior fracture.
--- NOTE | 2024-11-19 09:28 | XRR_ITS ---
PROCEDURE INFORMATION: Exam: XR Chest Exam date and time: 11/19/2024 9:31 AM Age: 89 years old Clinical indication: Pre-operative exam; Respiratory screening exam; Lt hip pain post fall TECHNIQUE: Imaging protocol: Radiologic exam of the chest. Views: 1 view. COMPARISON: CR XR chest 1V portable [id number] 09/21/2024 11:55 AM FINDINGS: Lungs: No new focal infiltrates seen of the lungs. Evidence of calcified granuloma of lungs bilaterally. Pleural spaces: No large or obvious pneumothorax nor pleural effusion seen. Heart/Mediastinum: Stable heart size. Large hiatal hernia similar to prior study. Vasculature: Atherosclerotic disease. Bones/joints: Old deformity proximal left humerus. XR/XR chest 1V portable [id number] IMPRESSION: No acute findings seen of the chest. Large hiatal hernia.
--- NOTE | 2024-11-19 09:30 | W.ED.EXTPRO ---
HPI - Extremity Problem General: Chief complaint: Extremity Injury, Lower Stated complaint: left leg pain s/p fall Time Seen by Provider: 11/19/24 09:21 Source: EMS Mode of arrival: EMS Limitations: altered mental status History of Present Illness: 89-year-old female is here from [facility] after she had fell out of bed she has a history of subcapital fracture left hip she is complaining of left hip pain at the [facility] no pain currently no signs of any head trauma. Patient is able to tell me her name but is demented and at her baseline not able to really answer any other questions Related Data Home Medications ?Medication ?Instructions ?Recorded ?Confirmed bisacodyl 10 mg rectal suppository 10 mg NH DAILY PRN Constipation 09/19/24 11/19/24 levetiracetam 500 mg tablet 500 mg PO BID 09/19/24 11/19/24 magnesium citrate 296 ml PO DAILY PRN Constipation 09/19/24 11/19/24 magnesium hydroxide 400 mg/5 mL 30 ml PO DAILY PRN Constipation 09/19/24 11/19/24 oral suspension (Milk of Magnesia) polyethylene glycol 3350 17 17 g PO DAILY PRN Constipation 09/19/24 11/19/24 gram/dose oral powder sodium phosphates 19 gram-7 118 ml NH DAILY PRN Constipation 09/19/24 11/19/24 gram/118 mL enema (Fleet Enema) acetaminophen 325 mg tablet 650 mg PO Q6H PRN Pain 11/19/24 11/19/24 docusate sodium 100 mg capsule 100 mg PO DAILY 11/19/24 11/19/24 (Colace) furosemide 40 mg tablet 40 mg PO DAILY 11/19/24 11/19/24 hydrocodone 5 mg-acetaminophen 325 1 tab PO Q8H PRN Pain 11/19/24 11/19/24 mg tablet lorazepam 2 mg/mL oral concentrate See Rx Instructions .Route 11/19/24 11/19/24 .COMPLEX PRN Anxiety/Seizure morphine concentrate 100 mg/5 mL See Rx Instructions .Route 11/19/24 11/19/24 (20 mg/mL) oral solution .COMPLEX PRN Pain/SOB Previous Rx's ?Medication ?Instructions ?Recorded famotidine 20 mg tablet 20 mg PO DAILY #90 tabs 12/30/23 atropine 1 % eye drops 4 drp sublingual Q4H PRN 09/28/24 secretions #5 mL ondansetron 4 mg disintegrating 4 mg translingual Q4H PRN nausea 09/28/24 tablet #5 tabs Allergies Allergy/AdvReac Type Severity Reaction Status Date / Time Penicillins Allergy Mild rash Verified 09/19/24 11:08 tetracycline Allergy Unknown Unverified 10/10/24 11:08 Review of Systems General: Reports: ROS unobtainable due to mental status PFSH ED PFSH: Medical History History of DVT (deep vein thrombosis) Subcapital fracture of left hip Encounter for medication review Aspiration pneumonia Physical deconditioning Protein calorie malnutrition Hyponatremia Transaminitis NSTEMI (non-ST elevated myocardial infarction) Bilateral pulmonary embolism Acute on chronic alteration in mental status Abnormal MRI of head History of CVA (cerebrovascular accident) without residual deficits Atrial septal aneurysm CVA (cerebral vascular accident) Hypoxia Anticoagulated by anticoagulation treatment Dementia Essential hypertension History of CVA (cerebrovascular accident) Hyperlipemia History of pulmonary embolism History of TIA (transient ischemic attack) Vitamin D deficiency Surgical History History of appendectomy Family History Mother DVT (deep venous thrombosis) Polymyositis Social History Smoking and tobacco/nicotine status: former use of tobacco/nicotine Second hand smoke exposure: No Alcohol intake: never Substance/Drug Use: never Physical Exam Const: COMMON NORMALS: no acute distress and healthy appearing; negative for patient oriented x3 HENMT: COMMON NORMALS: normocephalic and atraumatic HEAD & SCALP: normocephalic and atraumatic Eye: COMMON NORMALS: conjunctivae normal CONJUNCTIVA: Yes conjunctivae normal Neck/C-Spine: COMMON NORMALS: full ROM and supple Chest: COMMONS NORMALS: normal inspection of the chest Resp: COMMON NORMALS: normal respiratory effort, No retractions, No use of accessory muscles and clear to auscultation bilaterally AUSCULTATION: clear to auscultation bilaterally Cardio: COMMON NORMALS: regular rate, regular rhythm and No murmurs present (Cardio) RATE: regular rate RHYTHM: regular rhythm GI: COMMON NORMALS: Normal to inspection, nondistended, normoactive bowel sounds present, Soft to palpation, non-tender and no masses PALPATION: Yes Soft to palpation Extremity: COMMON NORMALS: normal to inspection and full ROM NARRATIVE EXTREMITY EXAM: Minimal tenderness on exam had full range of motion Neuro: COMMON NORMALS: moves all extremities and no focal motor deficits; negative for patient oriented x3 Psych: COMMON NORMALS: mental status grossly normal, Normal thought process present and cooperative THOUGHT PROCESS: Normal thought process present Skin: COMMON NORMALS: no rashes or lesions noted and no wounds GENERAL SKIN EXAM: no rashes or lesions noted Course Vital Signs: Vital signs: Vital Signs Temperature 98.9 F 11/19/24 09:24 Pulse Rate 89 11/19/24 11:25 Respiratory Rate 20 H 11/19/24 11:25 Blood Pressure 113/64 11/19/24 11:25 Pulse Oximetry 91 11/19/24 11:25 Oxygen Delivery Me thod Room Air 11/19/24 10:30 Oxygen Flow Rate 3 11/19/24 10:02 MDM - Extremity (Nontraumatic) Medical Decision Making Patient presents with left hip fracture spoke to hospitalist and orthopedist will admit this time Medical Records I reviewed the patient's medical records. Lab Data I reviewed the patient's lab results. 11/19/24 10:45 11/19/24 10:45 Radiology Impressions Hip/Pelvis X-Ray 11/19/24 09:23 IMPRESSION: 1. New fracture low neck, intertrochanteric region proximal left femur with slight angulation and displacement of fragments.. 2. Sclerosis left femoral neck, subcapital region compatible with attempted healing response to prior fracture. Chest X-Ray 11/19/24 09:28 IMPRESSION: No acute findings seen of the chest. Large hiatal hernia. Hip CT 11/19/24 10:36 IMPRESSION: 1. New comminuted intertrochanteric fracture proximal left femur with slight angulation and displacement of fragments. 2. Subacute fracture left femoral neck, subcapital region with slight impaction, slight valgus, slight sclerosis. 3. Evidence of effusion and/or hematoma about femoral neck. Laboratory Results WBC 18.13 10^3/uL (3.29-11.43) H 11/19/24 10:45 RBC 3.59 10^6/uL (3.85-5.65) L 11/19/24 10:45 Hgb 9.30 g/dL (11.27-16.99) L 11/19/24 10:45 Hct 30.9 % (36-47) L 11/19/24 10:45 MCV 86.1 fl (85-98) 11/19/24 10:45 MCH 25.9 pg (27-33) L 11/19/24 10:45 MCHC 30.1 g/dL (30-55) 11/19/24 10:45 RDW 17.3 % (12.1-15.1) H 11/19/24 10:45 Plt Count 273 10^3/cmm (157-399) 11/19/24 10:45 MPV 9.1 fL (7.4-10.4) 11/19/24 10:45 Neut % (Auto) 91.5 % 11/19/24 10:45 Lymph % (Auto) 3.2 % 11/19/24 10:45 [place] % (Auto) 4.1 % 11/19/24 10:45 Eos % (Auto) 0.1 % 11/19/24 10:45 Baso % (Auto) 0.3 % 11/19/24 10:45 Neut # (Auto) 16.59 10^3/uL (1.8-7.7) H 11/19/24 10:45 Lymph # (Auto) 0.6 10^3/uL (0.8-4.8) L 11/19/24 10:45 [place] # (Auto) 0.8 10^3/uL (0.2-0.9) 11/19/24 10:45 Eos # (Auto) 0.0 10^3/uL (0.0-0.8) 11/19/24 10:45 Baso # (Auto) 0.1 10^3/uL (0.0-0.1) 11/19/24 10:45 Nucleated RBC % (auto) 0 % 11/19/24 10:45 Nucleated RBCs # 0.0 /100WBC 11/19/24 10:45 PT 14.80 SECONDS (12.1-14.9) 11/19/24 10:45 INR 1.08 (0.8-1.2) 11/19/24 10:45 Sodium 137 mmol/L (136-145) 11/19/24 10:45 Potassium 4.0 mmol/L (3.5-5.1) 11/19/24 10:45 Chloride 99 mmol/L (98-107) 11/19/24 10:45 Carbon Dioxide 28 mmol/L (22-29) 11/19/24 10:45 Anion Gap 14.0 (5-19) 11/19/24 10:45 BUN 21 mg/dL (8-23) 11/19/24 10:45 Creatinine 1.0 mg/dL (0.5-0.9) H 11/19/24 10:45 GFR Calculation Not Reportable 11/19/24 10:45 Glucose 105 mg/dL (65-115) 11/19/24 10:45 Calculated Osmolality 287 mOsm/kg (285-295) 11/19/24 10:45 Calcium 9.2 mg/dL (8.5-10.5) 11/19/24 10:45 Total Bilirubin 0.6 mg/dL (0.15-1.2) 11/19/24 10:45 AST 12 U/L (0-32) 11/19/24 10:45 ALT 8 U/L (0-33) 11/19/24 10:45 Alkaline Phosphatase 101 U/L (35-105) 11/19/24 10:45 Total Protein 6.5 g/dL (6.6-8.7) L 11/19/24 10:45 Albumin 3.3 g/dL (3.5-5.2) L 11/19/24 10:45 Globulin 3.2 g/dL (1.3-4.6) 11/19/24 10:45 Urine Color Yellow (Yellow) 11/19/24 11:22 Urine Appearance Clear (CLEAR) 11/19/24 11:22 Urine pH 5.0 (5-7) 11/19/24 11:22 Ur Specific [place] 1.019 (1.005-1.030) 11/19/24 11:22 Urine Protein Trace (Negative) A 11/19/24 11:22 Urine Glucose (UA) Negative (Normal) 11/19/24 11:22 Urine Ketones Negative (Negative) 11/19/24 11:22 Urine Blood Negative (Negative) 11/19/24 11:22 Urine Nitrate Negative (Negative) 11/19/24 11:22 Urine Bilirubin Negative (Negative) 11/19/24 11:22 Urine Urobilinogen 1.0 mg/dL (Negative) 11/19/24 11:22 Ur Leukocyte Esterase Negative (Negative) 11/19/24 11:22 Amorphous Sediment Not Reportable 11/19/24 11:22 All radiology interpretation(s) finalized by discharge Discharge Plan Discharge Patient Disposition: Admitted As Inpatient Clinical Impression: Closed fracture of left hip Condition: Stable Coding Level of Care Code ED Tenant Selector for Sohan Rivera
[2024-11-19] MEDS: sodium chloride 0.9% 1,000 ML 999 ML IV (09:58)
--- NOTE | 2024-11-19 10:36 | CTR_ITS ---
PROCEDURE INFORMATION: Exam: CT Left Lower Extremity Without Contrast, Hip Exam date and time: 11/19/2024 10:57 AM Age: 89 years old Clinical indication: Injury or trauma; Fall; Blunt trauma; Hip; Left TECHNIQUE: Imaging protocol: CT of the left lower extremity without contrast was performed. Exam focused on the hip. Radiation optimization: All CT scans at this facility use at least one of these dose optimization techniques: automated exposure control; mA and/or kV adjustment per patient size (includes targeted exams where dose is matched to clinical indication); or iterative reconstruction. COMPARISON: CT hip LT wo con* [id number] 09/19/2024 12:13 PM RADIATION DOSE METRICS: Total DLP (mGy-cm): 221.34 FINDINGS: Bones/joints: Comminuted intertrochanteric fracture proximal left femur with slight angulation and displacement of fragments. Subacute fracture left femoral neck, subcapital region with slight impaction, slight valgus, slight sclerosis. No additional displaced fracture nor dislocation seen of left hip. Evidence of effusion and/or hematoma about femoral neck. Soft tissues: Evidence of fat containing left inguinal hernia partially included. Vasculature: Arterial calcification. Intestine: Diverticula of the colon partially included. CT/CT hip LT wo con* [id number] IMPRESSION: 1. New comminuted intertrochanteric fracture proximal left femur with slight angulation and displacement of fragments. 2. Subacute fracture left femoral neck, subcapital region with slight impaction, slight valgus, slight sclerosis. 3. Evidence of effusion and/or hematoma about femoral neck.
[2024-11-19 10:52] LABS: Basophils # 0.1 10^3/uL (0.0-0.1); Basophils % 0.3 %; Eosinophils % 0.1 %; Hematocrit 30.9 % (36-47); Lymphocytes # 0.6 10^3/uL (0.8-4.8); Lymphocytes % 3.2 %; Mean Corpuscular HGB Conc 30.1 g/dL (30-55); Mean Corpuscular Hemoglobin 25.9 pg (27-33); Mean Corpuscular Volume 86.1 fl (85-98); Mean Platelet Volume 9.1 fL (7.4-10.4); Monocytes # 0.8 10^3/uL (0.2-0.9); Monocytes % 4.1 %; Neutrophils # 16.59 10^3/uL (1.8-7.7); Neutrophils % 91.5 %; Nucleated Red Blood Cells % 0 %; Platelet Count 273 10^3/cmm (157-399); Red Blood Count 3.59 10^6/uL (3.85-5.65); Red Cell Distribution Width 17.3 % (12.1-15.1); White Blood Count 18.13 10^3/uL (3.29-11.43)
[2024-11-19 11:08] LABS: INR 1.08 (0.8-1.2)
[2024-11-19 11:16] LABS: Alanine Aminotransferase 8 U/L (0-33); Albumin Level 3.3 g/dL (3.5-5.2); Alkaline Phosphatase 101 U/L (35-105); Aspartate Amino Transferase 12 U/L (0-32); Blood Urea Nitrogen 21 mg/dL (8-23); Calcium 9.2 mg/dL (8.5-10.5); Carbon Dioxide 28 mmol/L (22-29); Chloride 99 mmol/L (98-107); Creatinine Clr Calc Pharmacy 28.4533; Globulin 3.2 g/dL (1.3-4.6); Glucose 105 mg/dL (65-115); Osmolality Calculated 287 mOsm/kg (285-295); Sodium 137 mmol/L (136-145); Total Bilirubin 0.6 mg/dL (0.15-1.2); Total Protein 6.5 g/dL (6.6-8.7)
[2024-11-19 11:34] LABS: Bilirubin Urine Negative (Negative); Blood Urine Negative (Negative); Glucose Urine UA Negative (Normal); Ketones Urine Negative (Negative); Leukocyte Esterase Urine Negative (Negative); Nitrate Urine Negative (Negative); Protein Urine Trace (Negative); Specific Gravity, Urine 1.019 (1.005-1.030); Urine Appearance Clear (CLEAR); Urine Color Yellow (Yellow)
[2024-11-19 11:39] LABS: Add Urine Microscopic? YES; Bacteria Urine None Seen /hpf; Hyaline Casts Urine 4.95 /lpf; RBC Urine 0-2 /hpf (0-2); Squamous Epithelial Cell Urine 0-5 /hpf (0-5); WBC Urine 0-5 /hpf (0-5)
[2024-11-19] MEDS: pantoprazole 40 mg SDV IVP (13:47)
--- NOTE | 2024-11-19 13:50 | P.HP_ITS ---
Providers/Chief Complaint 2 Admitting Physician: Qamar Gutierrez MD Primary Care Provider: Mya Cole MD Chief Complaint: left leg pain s/p fall History of Present Illness Maria Alejandra Zayas is a 89 year old female recent history of subcapital fracture of left hip, medically managed, [facility], [facility], family elected against surgical intervention, DNR/DNI, pulm hypertension, bilateral PEs, diastolic CHF during that hospitalization she was found to have bilateral pulm embolism, with history of GI bleed family decided against anticoagulant therapy as she was going on hospice, possible neoplasm given spiculated nodule in right lower lobe, [facility], she does not ambulate, she can feed herself, she is alert to person, not to place, not to time at times she can carry on conversations. Patient had a fall this morning, brought to the emergency room, CT of the hip shows CT/CT hip LT wo con* [id number] IMPRESSION: 1. New comminuted intertrochanteric fracture proximal left femur with slight angulation and displacement of fragments. 2. Subacute fracture left femoral neck, subcapital region with slight impaction, slight valgus, slight sclerosis. 3. Evidence of effusion and/or hematoma about femoral neck Patient was examined she is not in any pain, she is resting comfortably, alert to person, not to place, not to time, she can follow some commands, -Reviewed prior notes from last hospitalization 09/20/2024 CT/CT angio chest PE protcl [id number] IMPRESSION: 1. Evidence of segmental and subsegmental pulmonary emboli described above. 2. Several scattered mainly peripheral parenchymal opacities worse in the LEFT upper lobe. This may be infectious or inflammatory also consider septic emboli. 3. Large esophageal hiatal hernia with intrathoracic stomach. 4. Advanced chronic emphysematous changes with scattered areas of fibrosis. 5. Focal spiculated opacity RIGHT lower lobe posterior medially measuring 1.8 cm. Neoplasm not excluded. Recommend short interval follow-up chest CT and consider further evaluation with PET/CT if persistent -Spoke to ER provider - Spoke to patient's son, Taqueria zayas, [facility] power of defense attorney -Discussed CT imaging -Taqueria does not want any surgical invention, he just wants surely to be kept comfortable, to be [facility] -Discussed with son that she recently had a pulmonary embolism, she is not on anticoagulant therapy, as she was on hospice, we do not know the status of her pulmonary embolism at this point, surgical intervention would carry significant risk, morbidity or mortality -In addition she also has evidence of a GI bleed, she would need some form of anticoagulation therapy with surgery and after surgery which carry significant morbidity and mortality -In addition she was also found to have a spiculated nodule in the right lower lobe -Given her current state surgical invention would carry significant morbidity mortality, risk of cardiac arrest, carry risk of prolonged intubation -Discussed with him all options, discussed with him the morbidity mortality of all options, he voiced understanding, all questions answered, shared decision making, Taqueria wants surely to be [facility] -Spoke to orthopedic physician, discussed case in detail, discussed her prior hospitalizations, her risk factors, he agreed with plan for patient to be [facility] -Spoke to ER provider, plan arrangements will be made to be [facility] the [facility] Review of Systems 2 Card: Denies: chest pain Resp: Denies: dyspnea Medications/Allergies Home Medications ?Medication ?Instructions ?Recorded ?Confirmed ?Last Taken ?Type famotidine 20 mg tablet 20 mg PO DAILY #90 tabs 12/1211/19/24 11/18/24 Rx bisacodyl 10 mg rectal suppository 10 mg DC DAILY PRN Constipation 09/19/24 11/19/24 09/19/24 History levetiracetam 500 mg tablet 500 mg PO BID 09/19/2402/0511/18/24 History magnesium citrate 296 ml PO DAILY PRN Constipa tion 09/19/24 11/19/24 Unknown History magnesium hydroxide 400 mg/5 mL 30 ml PO DAILY PRN Con stipation 09/19/24 11/19/24 Unknown History oral suspension (Milk of Magnesia) polyethylene glycol 3350 17 17 g PO DAILY PRN Constipa tion 09/19/24 11/19/24 11/13/24 History gram/dose oral powder sodium phosphates 19 gram-7 118 ml DC DAILY PRN Consti pation 09/19/24 11/19/24 Unknown History gram/118 mL enema (Fleet Enema) atropine 1 % eye drops 4 drp sublingual Q4H PRN 11/19/24 Unknown Rx secretions #5 mL ondansetron 4 mg disintegrating 4 mg translingual Q4H PRN nausea 09/28/24 11/19/24 11/18/24 Rx tablet #5 tabs acetaminophen 325 mg tablet 650 mg PO Q6H PRN Pain 02/0511/19/24 11/18/24 History docusate sodium 100 mg capsule 100 mg PO DAILY 5 11/19/24 11/18/24 History (Colace) furosemide 40 mg tablet 40 mg PO DAILY 11/19/2402/0511/18/24 History hydrocodone 5 mg-acetaminophen 325 1 tab PO Q8H PRN Pa in 11/19/24 11/19/24 Unknown History mg tablet lorazepam 2 mg/mL oral concentrate See Rx Instructions .Route 11/19/24 11/19/24 Unknown History .COMPLEX PRN Anxiety/Seizure morphine concentrate 100 mg/5 mL See Rx Instructions . Route 11/19/24 11/19/24 Unknown History (20 mg/mL) oral solution .COMPLEX PRN Pain/SOB Allergies Allergy/AdvReac Type Severity Reaction Status Date / Time Penicillins Allergy Mild rash Verified 11/19/24 13:44 tetracycline Allergy Unknown Unknown Verified 11/19/24 13:44 PFSH Acute 2 PFSH: Medical History History of DVT (deep vein thrombosis) Subcapital fracture of left hip Encounter for medication review Aspiration pneumonia Physical deconditioning Protein calorie malnutrition Hyponatremia Transaminitis NSTEMI (non-ST elevated myocardial infarction) Bilateral pulmonary embolism Acute on chronic alteration in mental status Abnormal MRI of head History of CVA (cerebrovascular accident) without residual deficits Atrial septal aneurysm CVA (cerebral vascular accident) Hypoxia Anticoagulated by anticoagulation treatment Dementia Essential hypertension History of CVA (cerebrovascular accident) Hyperlipemia History of pulmonary embolism History of TIA (transient ischemic attack) Vitamin D deficiency Surgical History History of appendectomy Family History Mother DVT (deep venous thrombosis) Polymyositis Social History Smoking and tobacco/nicotine status: former use of tobacco/nicotine Second hand smoke exposure: No Alcohol intake: never Substance/Drug Use: never Vitals/I&O/Wt Last Vital Signs Temp 98.9 F 11/19/24 09:24 Pulse 90 11/19/24 13:35 Resp 23 H 11/19/24 13:35 BP 120/64 11/19/24 13:35 Pulse Ox 94 11/19/24 13:35 O2 Del Method Room Air 11/19/24 10:30 O2 Flow Rate 3 11/19/24 10:02 11/18/24 11/19/24 11/19/24 22:59 06:59 14:59 Intake Total 1000 / 1000 Balance 1000 / 1000 Weight last 48 hrs Weight 49.895 kg Physical Exam 2 Const: COMMON NORMALS: no acute distress ORIENTATION/CONSCIOUSNESS: Yes awake, Yes oriented to person and Yes confused; not oriented to place and not oriented to time Resp: COMMON NORMALS: normal respiratory effort, No retractions, No use of accessory muscles and clear to auscultation bilaterally AUSCULTATION: clear to auscultation bilaterally Cardio: COMMON NORMALS: no JVD, regular rate, regular rhythm, S1 normal heart sound present and S2 normal heart sound present RATE: regular rate RHYTHM: regular rhythm HEART SOUNDS: S1 normal heart sound present and S2 normal heart sound present GI: COMMON NORMALS: Normal to inspection, nondistended, normoactive bowel sounds present, Soft to palpation and non-tender Extremity: COMMON NORMALS: no pedal edema Neuro: COMMON NORMALS: patient oriented x3 Psych: COMMON NORMALS: mental status grossly normal Urinary Catheter Management: Kelly: Cath Placed During This Visit: yes Urinary Catheter Date of Insertion: 11/19/24 Urinary Catheter Time of Insertion: 11:20 Data 11/19/24 10:45 11/19/24 10:45 A&P Assessment and plan (1) Diastolic heart failure: (2) Pulmonary hypertension: (3) History of DVT (deep vein thrombosis): (4) History of pulmonary embolism: (5) Pulmonary embolism: (6) Closed fracture of left hip: (7) Subcapital fracture of left hip: (8) Closed fracture of left hip: (9) Goals of care, counseling/discussion: PDMP PDMP Reviewed: Not Reviewed Attestations 2 Medical Necessity Statement*: [facility] Diagnoses Diastolic heart failure I50.30 Pulmonary hypertension I27.20 History of DVT (deep vein thrombosis) Z86.718 History of pulmonary embolism Z86.711 Pulmonary embolism I26.99 Closed fracture of left hip with routine healing, subsequent encounter S72.002D Encounter type: subsequent encounter Fracture healing: with routine healing Closed subcapital fracture of left femur, initial encounter S72.012A Encounter type: initial encounter Fracture type: closed Goals of care, counseling/discussion Z71.89
[2024-11-19 14:01] LABS: Lactic Sepsis W/Reflex 1.7 mmol/L (0.5-2.2)
[2024-11-19 14:10] LABS: Procalcitonin 5.42 ng/mL (0-0.5)
== END 2024-11-19 15:14 | disposition home or self-care (01) ==
LOC: ER 11:37 → ER IP 13:52
PROVIDERS: Family Medicine; Emergency Provider Emergency Medicine; PCP Family Medicine
DX: S72.142A Displaced intertrochanteric fracture of left femur, initial encounter for closed fracture (principal); Z87.891 Personal history of nicotine dependence; Z86.73 Personal history of transient ischemic attack (TIA), and cerebral infarction without residual deficits; E78.5 Hyperlipidemia, unspecified; I10 Essential (primary) hypertension; W06.XXXA Fall from bed, initial encounter
CPT/HCPCS: 51702; 71045; 73502; 73700; 80053; 81001; 83605; 84145; 84443; 85025; 85610; 94664; 96361; 96374; 99285; J2470; J7030